=== PATIENT | female | born 1960 | race Caucasian/White ===

== ENCOUNTER 2022-02-27 14:12 | Emergency (ER) | payer MEDICARE, OTHER, SELFPAY ==
[2022-02-27 14:18] VITALS: BP 134/78; PULSE 111; RESP 18; TEMP 36.7; O2SAT 90; BMI 19.5
--- NOTE | 2022-02-27 14:30 | PC.NURSE ---
Patient wears 2 L o2 at all times but left tank in car. This RN placed pt on 2 L NC.
--- NOTE | 2022-02-27 14:39 | W.ED.BACK ---
HPI - Back Pain/Injury General: Chief Complaint: Back Pain/Injury Stated Complaint: Lower Back Pain Time Seen by Provider: 02/27/22 14:39 Source: patient Mode of arrival: ambulatory History of Present Illness: 62-year-old female presents emergency room complaining of low back pain is persisted over the last few days. Started 2 days ago when she was sitting on the floor and leaned forward to change a baby's diaper. She had a sudden popping and spasm sensation in her back is continue to be very painful since. No radiation of pain down the legs no loss of bowel or bladder control no urinary retention. No shortness of breath no dysuria urgency or frequency. MD elicited complaint: back pain Pertinent past history: prior back pain Onset (ago): day(s) Timing: constant Similar Symptoms Previously: Yes Quality: aching Location: lumbar spine and thoracic spine Associated symptoms: Deny abdominal pain, chills, dysuria, fatigue, fever(s), nausea, urinary urgency or vomiting Review of Systems Const: Denies: fever(s), chills, body aches, change in appetite, fatigue or malaise ENMT: Denies: throat pain, ear or mastoid pain, nasal discharge or nasal congestion Card: Denies: chest pain, edema, dyspnea on exertion or orthopnea Resp: Denies: dyspnea, productive cough or non-productive cough GI: Denies: abdominal pain, nausea, vomiting, hematemesis, coffee ground emesis, diarrhea, constipation, bloating, hematochezia or melena : Denies: flank pain, difficulty voiding, dysuria, urinary frequency or urinary urgency Musc: Reports: back pain Skin/Breast: Denies: rash or pruritus PFS ED PFSH: Medical History (Updated 02/28/22 @ 06:20 by Brijesh Zimmer DO) COPD (chronic obstructive pulmonary disease) Osteoporosis Social History (Updated 02/28/22 @ 06:20 by Brijesh Zimmer DO) Smoking and tobacco status: current every day smoker Alcohol intake: never Physical Exam Const: COMMON NORMALS: no acute distress GENERAL APPEARANCE: cooperative and comfortable ORIENTATION/CONSCIOUSNESS: Yes awake, Yes oriented to person, Yes oriented to place and Yes oriented to time HENMT: COMMON NORMALS: normocephalic, atraumatic and hearing grossly normal bilaterally HEAD & SCALP: normocephalic and atraumatic Neck/C-Spine: OTHER: Tenderness over the upper lumbar spine with palpation no skin deformity or rash Lymph: LYMPHATIC: no lymphadenopathy noted and no lymphedema noted Resp: COMMON NORMALS: normal respiratory effort, No retractions, No use of accessory muscles and clear to auscultation bilaterally AUSCULTATION: clear to auscultation bilaterally Cardio: COMMON NORMALS: regular rate, regular rhythm and No murmurs present (Cardio) RATE: regular rate RHYTHM: regular rhythm GI: COMMON NORMALS: Soft to palpation and No hepatosplenomegaly present AUSCULTATION: Yes normoactive bowel sounds PALPATION: Yes Soft to palpation, No Tenderness to palpation present (GI), No Guarding due to palpation present (GI) and Yes No hepatosplenomegaly present Extremity: COMMON NORMALS: normal to inspection, capillary refill normal, no clubbing, cyanosis or edema, no calf tenderness and no pedal edema Neuro: SENSORIUM/ORIENTATION: Yes oriented to person, Yes oriented to place and Yes oriented to time Skin: COMMON NORMALS: no rashes or lesions noted GENERAL SKIN EXAM: no rashes or lesions noted Course Vital Signs: Vital signs: Vital Signs Temperature 98.1 F 02/27/22 15:20 Pulse Rate 111 H 02/27/22 15:20 Respiratory Rate 18 02/27/22 15:20 Blood Pressure 134/78 02/27/22 15:20 Pulse Oximetry 90 02/27/22 15:20 Oxygen Delivery Me thod 02/27/22 15:20 MDM - Back Pain/Injury Medical Decision Making Lumbar compression fracture we will set up for an MRI follow-up with orthopedic spine surgery to evaluate for possible kyphoplasty. Medical Records I reviewed the patient's medical records. Labs I reviewed the patient's lab results. : 02/27/22 14:36 02/27/22 14:36 Radiology Impressions Lumbar Spine X-Ray 02/27/22 14:51 Impression: 1. Diffuse osteoporosis. 2. Loss of 25% of anterior and central vertebral body height of L1. 3. Anterior osteophytes at L4 and L5 with degenerative disc narrowing. Laboratory Results WBC 9.0 10^3/uL (4.0-10.0) 02/27/22 14:36 RBC 4.91 10^6/uL (4.1-5.3) 02/27/22 14:36 Hgb 15.2 g/dL (11.5-15.3) 02/27/22 14:36 Hct 46.3 % (37.0-47.0) 02/27/22 14:36 MCV 94.3 fl (81-99) 02/27/22 14:36 MCH 31.0 pg (28.0-34.0) 02/27/22 14:36 MCHC 32.8 g/dL (30.0-36.0) 02/27/22 14:36 RDW 12.2 % (12.1-15.1) 02/27/22 14:36 Plt Count 419 10^3/cmm (130-400) H 02/27/22 14:36 MPV 8.7 fL (7.4-10.4) 02/27/22 14:36 Neut % (Auto) 69.4 % 02/27/22 14:36 Lymph % (Auto) 21.4 % 02/27/22 14:36 Roberts % (Auto) 7.4 % 02/27/22 14:36 Eos % (Auto) 1.3 % 02/27/22 14:36 Baso % (Auto) 0.2 % 02/27/22 14:36 Neut # (Auto) 6.21 10^3/uL (1.8-7.7) 02/27/22 14:36 Lymph # (Auto) 1.9 10^3/uL (0.8-4.8) 02/27/22 14:36 Roberts # (Auto) 0.7 10^3/uL (0.2-0.9) 02/27/22 14:36 Eos # (Auto) 0.1 10^3/uL (0.0-0.8) 02/27/22 14:36 Baso # (Auto) 0.0 10^3/uL (0.0-0.1) 02/27/22 14:36 Nucleated RBC % (auto) 0 % 02/27/22 14:36 Nucleated RBCs # 0.0 /100WBC 02/27/22 14:36 Sodium 139 mmol/L (136-145) 02/27/22 14:36 Potassium 4.5 mmol/L (3.5-5.1) 02/27/22 14:36 Chloride 98 mmol/L (98-107) 02/27/22 14:36 Carbon Dioxide 31 mmol/L (22-29) H 02/27/22 14:36 Anion Gap 14.5 (5-19) 02/27/22 14:36 BUN 7 mg/dL (8-23) L 02/27/22 14:36 Creatinine 0.5 mg/dL (0.5-0.9) 02/27/22 14:36 GFR Calculation 124.2 mL/min (90-130) 02/27/22 14:36 Glucose 130 mg/dL (65-115) H 02/27/22 14:36 Calculated Osmolality 288 mOsm/kg (285-295) 02/27/22 14:36 Calcium 9.7 mg/dL (8.5-10.5) 02/27/22 14:36 Total Bilirubin 0.5 mg/dL (0.15-1.2) 02/27/22 14:36 AST 11 U/L (0-32) 02/27/22 14:36 ALT 10 U/L (0-33) 02/27/22 14:36 Alkaline Phosphatase 127 U/L (35-105) H 02/27/22 14:36 Total Protein 7.5 g/dL (6.6-8.7) 02/27/22 14:36 Albumin 4.2 g/dL (3.5-5.2) 02/27/22 14:36 Globulin 3.3 g/dL (1.3-4.6) 02/27/22 14:36 Lipase 21 U/L (13-60) 02/27/22 14:36 Discharge Plan Discharge Clinical Impression: Closed compression fracture of lumbar vertebra Prescriptions: New hydrocodone-acetaminophen 5-325 mg tablet 1 tab PO Q6H PRN (Reason: pain) Qty: 20 0RF Discharge Orders: Discharge ED (Routine); Ordered 02/27/22 Ordered By: Brijesh Zimmer Discharge Diet: Usual diet Discharge Activity: Increase activity as tolerated Patient Instructions: Opioid Safety Activity Restrictions/Additional Instructions: Case management will make arrangements for you to have an MRI of your lumbar spine and follow-up with the orthopedic surgeon. They will also call to help you make arrangements to establish with a primary care physician. 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
[2022-02-27 14:41] LABS: Basophils % 0.2 %; Eosinophils # 0.1 10^3/uL (0.0-0.8); Eosinophils % 1.3 %; Hematocrit 46.3 % (37.0-47.0); Hemoglobin 15.2 g/dL (11.5-15.3); Lymphocytes # 1.9 10^3/uL (0.8-4.8); Lymphocytes % 21.4 %; Mean Corpuscular HGB Conc 32.8 g/dL (30.0-36.0); Mean Corpuscular Volume 94.3 fl (81-99); Mean Platelet Volume 8.7 fL (7.4-10.4); Monocytes # 0.7 10^3/uL (0.2-0.9); Monocytes % 7.4 %; Neutrophils # 6.21 10^3/uL (1.8-7.7); Neutrophils % 69.4 %; Nucleated Red Blood Cells % 0 %; Platelet Count 419 10^3/cmm (130-400); Red Blood Count 4.91 10^6/uL (4.1-5.3); Red Cell Distribution Width 12.2 % (12.1-15.1)
--- NOTE | 2022-02-27 14:51 | XR_ITS ---
WS: [id number] Lumbar spine, 3 views, 02/27/2022 Clinical Data: pain Comparison: None. Findings: There is diffuse osteoporosis. There is loss of 25% of the anterior and central vertebral body height of L1 which may represent a compression fracture. There is degenerative disc narrowing at L4-L5. Ant erior osteophytes are present at L4 and L5. The transverse processes and SI joints are unremarkable. There are calcifications overlying the left kidney. There is a moderate amount of fecal material throughout the colon. There are vascular calcifi cations in the abdominal aorta. There are surgical anchors overlying the pubic symphysis. XR/XR lumbar spine 2-3V* [id number] Impression: 1. Diffuse osteoporosis. 2. Loss of 25% of anterior and central vertebral body height of L1. 3. Anterior osteophytes at L4 and L5 with degenerative disc narrowing.
[2022-02-27 15:10] LABS: Alanine Aminotransferase 10 U/L (0-33); Albumin Level 4.2 g/dL (3.5-5.2); Alkaline Phosphatase 127 U/L (35-105); Anion Gap 14.5 (5-19); Aspartate Amino Transferase 11 U/L (0-32); Blood Urea Nitrogen 7 mg/dL (8-23); Calcium 9.7 mg/dL (8.5-10.5); Carbon Dioxide 31 mmol/L (22-29); Chloride 98 mmol/L (98-107); Globulin 3.3 g/dL (1.3-4.6); Glomerular Filtration Rate 124.2 mL/min (90-130); Glucose 130 mg/dL (65-115); Lipase 21 U/L (13-60); Osmolality Calculated 288 mOsm/kg (285-295); Potassium 4.5 mmol/L (3.5-5.1); Sodium 139 mmol/L (136-145); Total Bilirubin 0.5 mg/dL (0.15-1.2); Total Protein 7.5 g/dL (6.6-8.7)
[2022-02-27 15:20] VITALS: BP 134/78; PULSE 111; RESP 18; TEMP 36.7; O2SAT 90
[2022-02-27] MEDS: ondansetron 2 mg/ML SDV 2 mL 4 MG IM (15:50)
[2022-02-27] MEDS: morphine 4 mg/mL SDV 1 mL IM (15:50)
--- NOTE | 2022-02-28 09:08 | DCPLANNER ---
Addendum entered by Ele Castro 03/13/22 13:47: Patient did attend appointment scheduled with ortho on 03.05.22 Patient had an MRI scheduled for 03.05.22 - patient did attend MRI Addendum entered by Ele Castro 03/01/22 14:05: Patient has a follow up appointment scheduled for Saturday, March 05, 2022 at 2:45 with Farooq Dooley at [facility]. Clinic will call patient with appointment information. Original Note: manager environmental services had message to schedule an outpatient MRI for patient. manager environmental services faxed signed order to centralized scheduling, who will call patient with appointment information. manager environmental services also had message to schedule a follow up appointment for patient with ortho. manager environmental services sent patients information to the front office staff at [facility]. Patients information will be printed and reviewed. Clinic will call patient with appointment information.
--- NOTE | 2022-02-28 09:28 | DCPLANNER ---
rental manager had message to speak with patient about getting established with a primary care physician. rental manager called phone number [phone] unable to speak with patient a voicemail was left for patient to return immigration case manager phone call.
== END 2022-02-27 15:55 | disposition home or self-care (01) ==
PROVIDERS: Emergency Medicine; Emergency Provider Family Medicine
DX: S32.010A Wedge compression fracture of first lumbar vertebra, initial encounter for closed fracture (principal); X50.1XXA Overexertion from prolonged static or awkward postures, initial encounter; J44.9 Chronic obstructive pulmonary disease, unspecified; F17.210 Nicotine dependence, cigarettes, uncomplicated
CPT/HCPCS: 36415; 72100; 80053; 83690; 85025; 96372; 99285; J2270; J2405

== ENCOUNTER 2022-03-05 15:46 | Outpatient (CLI) | payer MEDICARE, OTHER, SELFPAY | END 2022-03-05 15:47 | disposition home or self-care (01) | LOC: SPT 15:47 | PROVIDERS: Visit Provider Physician Assistant | DX: Z46.89 Encounter for fitting and adjustment of other specified devices (principal); S32.010D Wedge compression fracture of first lumbar vertebra, subsequent encounter for fracture with routine healing; X58.XXXD Exposure to other specified factors, subsequent encounter | CPT/HCPCS: 97760; 99203; L0456 ==

== ENCOUNTER 2022-03-05 17:24 | Outpatient (CLI) | payer MEDICARE, OTHER, SELFPAY ==
--- NOTE | 2022-03-05 16:45 | MRR_ITS ---
PROCEDURE INFORMATION: Exam: MR Thoracic Spine Without Contrast Exam date and time: 03/05/2022 5:39 PM Age: 62 years old Clinical indication: Pain in thoracic spine; Additional info: Fracture TECHNIQUE: Imaging protocol: Magnetic resonance imaging of the thoracic spine without contrast. COMPARISON: CR XR lumbar spine 2-3V* [id number] 02/27/2022 3:01 PM FINDINGS: Bones/joints: There is bone marrow edema throughout the L1 vertebral body. There is a mild compression fracture of the superior endplate. There is 4 mm posterior cortical retropulsion of the superior endplate. There is mild broad-based upper thoracic kyphosis. There are severe biconcave compression fractures without bone marrow edema at T7, T6, T5, T4, and T3. Spinal cord: The spinal cord is not well visualized. No gross abnormality is identified. No cord compression. Discs/Spinal canal/Neural foramina: No significant thoracic spinal canal stenosis. Mild spinal stenosis at L1. No cord compression. Soft tissues: Paraspinal soft tissues are unremarkable. Mediastinal space: There is a small sliding-type hiatal hernia. MR/MR thoracic spin wo con* [id number] IMPRESSION: 1. Acute or subacute mild L1 superior endplate compression fracture. 2. Mild spinal stenosis at L1 due to posterior cortical retropulsion. 3. Chronic T3 through T7 compression fractures. 4. Small sliding-type hiatal hernia.
== END 2022-03-05 17:25 | disposition home or self-care (01) ==
PROVIDERS: Visit Provider Physician Assistant
DX: S32.019A Unspecified fracture of first lumbar vertebra, initial encounter for closed fracture (principal); M48.061 Spinal stenosis, lumbar region without neurogenic claudication; S22.039A Unspecified fracture of third thoracic vertebra, initial encounter for closed fracture; S22.049A Unspecified fracture of fourth thoracic vertebra, initial encounter for closed fracture; S22.059A Unspecified fracture of T5-T6 vertebra, initial encounter for closed fracture; S22.069A Unspecified fracture of T7-T8 vertebra, initial encounter for closed fracture; X58.XXXA Exposure to other specified factors, initial encounter; K44.9 Diaphragmatic hernia without obstruction or gangrene
CPT/HCPCS: 72146; 72148

== ENCOUNTER 2022-03-05 17:24 | Outpatient (CLI) | payer MEDICARE, OTHER, SELFPAY ==
--- NOTE | 2022-03-05 16:45 | MRR_ITS ---
PROCEDURE INFORMATION: Exam: MR Lumbar Spine Without Contrast Exam date and time: 03/05/2022 5:54 PM Age: 62 years old Clinical indication: Low back pain; Additional info: Fracture TECHNIQUE: Imaging protocol: Magnetic resonance imaging of the lumbar spine without contrast. COMPARISON: CR XR lumbar spine 2-3V* [id number] 02/27/2022 3:01 PM FINDINGS: Bones/joints: Spinal alignment is normal. Mild superior endplate compression fracture at L1 with bone marrow edema throughout the L1 vertebral body. Trace posterior cortical retropulsion (4 mm) of the superior endplate. Spinal cord: The tip of the conus medullaris lies at L1. T12-L1: Mild spinal stenosis due to L1 superior endplate retropulsion. L1-L2: Normal. L2-L3: Normal. L3-L4: Disc desiccation and narrowing. Mild generalized disc bulge. No focal disc herniation. Mild bilateral facet and ligamentous hypertrophy. No spinal canal or neural foraminal stenosis. L4-L5: Disc desiccation and narrowing. Moderate generalized disc bulge. No focal disc herniation. Moderate bilateral facet and ligamentous hypertrophy. Mild spinal canal stenosis. Mild bilateral neural foraminal stenosis. L5-S1: Disc desiccation and narrowing. Mild generalized disc bulge. No focal disc herniation. Mild bilateral facet and ligamentous hypertrophy. No spinal canal stenosis. Mild right neural foraminal stenosis. Soft tissues: Paraspinal soft tissues are unremarkable. Visible intra-abdominal soft tissues are unremarkable. MR/MR lumbar spine wo con* [id number] IMPRESSION: 1. Acute or subacute mild L1 superior endplate compression fracture. 2. Posterior cortical retropulsion at the superior endplate of L1 produces mild spinal stenosis. 3. Mild spinal canal and neural foraminal stenosis in the lower lumbar spine due to disc and facet degeneration. Details above.
== END 2022-03-05 17:25 | disposition home or self-care (01) ==
LOC: RAD 17:24
PROVIDERS: Visit Provider Physician Assistant
DX: S32.019A Unspecified fracture of first lumbar vertebra, initial encounter for closed fracture (principal); M48.061 Spinal stenosis, lumbar region without neurogenic claudication; X58.XXXA Exposure to other specified factors, initial encounter
CPT/HCPCS: 72148

== ENCOUNTER → 2022-03-07 12:42 | Outpatient (BNVA) | payer MEDICARE, OTHER, SELFPAY | PROVIDERS: Visit Provider Physician Assistant | DX: S32.010D Wedge compression fracture of first lumbar vertebra, subsequent encounter for fracture with routine healing (principal); X58.XXXD Exposure to other specified factors, subsequent encounter; M81.0 Age-related osteoporosis without current pathological fracture | CPT/HCPCS: 99213 ==

== ENCOUNTER 2022-03-15 06:41 | Day surgery (SDC) | payer MEDICARE, OTHER, SELFPAY ==
--- NOTE | 2022-03-13 10:21 | ANES.PREANE2 ---
Pre-Anesthetic Assessment Height/Weight: Height 1.6 m Weight 49.895 kg Operation Date: 03/15/22 08:20 Proposed Procedures p Kyphoplasty L1 59425/S32.010A(Not Applicable) - Cornell Balbuena, Familial anesthetic complications: None Social No alcohol and No tobacco quit smoking a week ago Exam alert, oriented x 3, clear to auscultation bilaterally and regular rate & rhythm coarse breath sounds Airway Mallampati: Class II Dentition: other (missing) Pulmonary Chronic Obstructive Pulmonary Disease (2 L NC, supposed to wear it continuously, but has been off it for a week d/t inaccessability) and Sleep Apnea CV/HEM Atrial Fibrillation, Coronary Artery Disease (CABG X4 in 2005, and 4 stents since then (all greater than 1year ago, will hold plavix for surgery)) and Hypertension None reported Hepatic None reported GI None reported Metabolic None reported Musc/skel Lower Back Pain osteoprosis Neuropsych None reported Anesthetic Plan ASA status: 4 Anesthesia: General Risk of > 500 ml blood loss (7ml/kg in children): No Medications/Allergies Home Medications Medication Instructions Recorded Confirmed Last Taken Type TLSO BRACE #1 ea 03/05/22 03/07/22 Unknown Rx albuterol 90 mcg/actuation aerosol 90 mcg inhalation DAILY 03/05/22 03/13/22 Unknown History inhaler alendronate 70 mg tablet (Fosamax) 70 mg PO DAILY 03/05/22 03/07/22 Unknown History aspirin 81 mg tablet,delayed 81 mg PO DAILY 03/05/22 03/13/22 03/11/22 History release (Adult Aspirin Regimen) calcium carbonate 600 mg calcium 600 mg PO DAILY 03/05/22 03/13/22 Unknown History (1,500 mg) tablet (Calcium) citalopram 20 mg tablet (Celexa) 20 mg PO DAILY 03/05/22 03/13/22 Unknown History clopidogrel 75 mg tablet (Plavix) 75 mg PO DAILY 03/05/22 03/13/22 03/10/22 History gabapentin 400 mg capsule 400 mg PO TID 03/05/22 03/13/22 Unknown History (Neurontin) hydralazine 10 mg tablet 10 mg PO DAILY 03/05/22 03/13/22 Unknown History lisinopril 5 mg tablet 5 mg PO DAILY 03/05/22 03/13/22 Unknown History metoprolol tartrate 50 mg tablet 50 mg PO BID 03/05/22 03/13/22 Unknown History (Lopressor) ranolazine 500 mg tablet,extended 500 mg PO BID 03/05/22 03/13/22 Unknown History release,12 hr (Ranexa) hydrocodone 5 mg-acetaminophen 325 1 tab PO .q4-6 PRN pain 5 days #30 03/07/22 03/13/22 Unknown Rx mg tablet tabs ondansetron 4 mg disintegrating 4 mg PO Q6H PRN nausea and 03/07/22 03/13/22 Unknown Rx tablet vomiting #30 tabs fluticasone fur. 100 mcg-umeclid 1 inh inhalation DAILY 03/13/22 03/13/22 Unknown History 62.5 mcg-vilant 25 mcg inhalat.powder (Trelegy Ellipta) Allergies Allergy/AdvReac Type Severity Reaction Status Date / Time flagyl Allergy Mild ADR-Itching Uncoded 03/07/22 12:45 [facility] Anesthesia Medical History COPD (chronic obstructive pulmonary disease) Osteoporosis Social History Smoking and tobacco status: current every day smoker Second hand smoke exposure: Yes Smoking risk assessment/counseling performed?: No Alcohol intake: never Desire information about alcohol rehabilitation?: No Counseling given: No Desire information about substance/drug rehabilitation?: No Adopted: No Caregiver/support person: Yes Lives independently: No Household members: spouse Housing: House Marital status: Number of children: 4 Number of grandchildren: 12 Highest education level completed: 10th Grade service: No Current occupational status: retired and disabled Current occupational exposures/hazards: No Pets and animals: No Sexually active: Yes Current gender identity: Female Special annika needs: No Agree to transfusion: Yes Data Anesthesia Cardiac Studies: No Data to Display
--- NOTE | 2022-03-13 10:47 | ECG_ITS ---
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 Measurements Intervals [place] Rate: 82 P: -9 FL: 138 QRS: 64 QRSD: 85 T: 15 QT: 379 QTc: 444 Interpretive Statements SINUS RHYTHM No previous ECG available for comparison Electronically Signed On 03-13-2022 16:29:35 CDT by Claritza Box M.D. [id number]
[2022-03-15] VITALS (8 sets, daily range): BP systolic 94–130; BP diastolic 67–73; PULSE 72–76; RESP 15–18; TEMP 36.1–36.2; O2SAT 93–100
--- NOTE | 2022-03-15 | SCC_ITS ---
Procedure done: 1. L1 kyphoplasty 2. Biopsy L1 vertebral body 73.7 seconds of fluoroscopic guidance, for a cumulative dose of 15.71 mGy and 12.53 mGy, was provided to Dr. Balbuena by the radiology department. C-arm images of the lumbar spine were saved for the patient's permanent record. [facility]
--- NOTE | 2022-03-15 06:44 | SC_ITS ---
WS: [id number] Exam: C-arm FL for Kyphoplasty Date/Time of Exam: 03/15/2022 6:44 AM Reason For Exam: Kyphoplasty L1 Intraoperative AP and lateral views of the upper lumbar spine are submitted for evaluation. The images depict kyphoplasty with methacrylate cement in the L1 vertebral body. No other significant finding on this limited series.
--- NOTE | 2022-03-15 07:12 | P.ANESUD_ITS ---
Pre-Anesthetic Update Pre-Anesthetic Assessment: Date of Surgery/Procedure: 03/15/22 Preop Lily gnosis: L1 compression fracture Proposed Procedure: Operation Date: 03/15/22 08:20 Proposed Procedures p Kyphoplasty L1 14054/S32.010A(Not Applicable) - Cornell Balbuena, DO Any changes to Pre-Anesthetic Assessment?: No Last Intake: Intake Last Liquid Date 03/14/22 Last Liquid Time 20:30 Last Solid Date 03/14/22 Last Solid Time 20:30 Exam: Pre-Anes Outpt Exam: alert, oriented x 3, clear to auscultation bilaterally and regular rate & rhythm Cardiac Studies: No Data to Display
[2022-03-15] MEDS: sodium chloride 0.9% 1,000 ML 30 ML IV (07:14)
[2022-03-15 07:19] LABS: Glucose Point of Care 135 mg/dL (70-110)
[2022-03-15] MEDS: metoprolol tartrate 50 mg Tablet PO (07:21)
--- NOTE | 2022-03-15 08:18 | W.PM.OPSUD ---
Surgery/Procedure H&P Update DATE OF PROCEDURE: March 15, 2022 DATE H&P PERFORMED: 03/07/22 H&P UPDATE INFORMATION: I have reviewed H&P completed within last 30 days, I have examined patient prior to procedure and No changes to prior documentation PREOP DIAGNOSIS: L1 compression fracture PLANNED PROCEDURE: Operation Date: 03/15/22 08:20 Proposed Procedures p Kyphoplasty L1 16744/S32.010A(Not Applicable) - Cornell Balbuena DO
[2022-03-15] MEDS: clindamycin 900 MG/50 ML PREMIX 100 MG IV (08:48)
[2022-03-15] MEDS: iohexol 300 mg/mL 50 mL Btl (OR ONLY) XX (09:25)
--- NOTE | 2022-03-15 10:04 | PM.OP ---
Operative Report Date of procedure: March 15, 2022 Pre-op diagnosis: Preop Diagnosis L1 traumatic wedge compression fracture Post-op diagnosis: same Procedure done: 1. L1 kyphoplasty 2. Biopsy L1 vertebral body Surgeon: Cornell Balbuena Estimated blood loss (mL): 5 Procedure: L1 Kyphoplasty Patient is brought to the operative suite placed in the prone position after undergoing anesthesia. All areas impingement well-padded. Patient was prepped and draped in sterile fashion. Skin incision made over the superior lateral aspect of the L1 pedicle on the left side. This was done under biplanar fluoroscopy. The Jamshidi awl was inserted. Then a biopsy tube was inserted biopsy was taken out and sent to pathology. Next attention was brought to the drill the drill was inserted and the balloon was inserted and the balloon was inflated. Is felt that I needed to go to the contralateral side as well. Skin incision made over the right pedicle. The Jamshidi was inserted the drill was inserted the balloon was inserted and inflated. AP lateral fluoroscopy ensured the balloons were inflated did not reach any damico. Wounds were pulled out. And then the voids that were created were filled with cement AP and lateral fluoroscopy ensured that the cement stayed in good position. Inside of the bone. And wounds were irrigated and closed with Vicryl's and nylon suture. Sterile dressings were applied and patient was transferred to the PACU in stable condition.
[2022-03-15] MEDS: HYDROcodone-acetaminophen 5-325 mg Tablet 1 TAB PO (10:40)
--- NOTE | 2022-03-15 12:00 | ANE.PACU2 ---
Inpatient post-anesthesia follow up: Airway intact: Yes Vital signs: Temperature 97.2 F Pulse Rate 76 Respiratory Rate 16 Blood Pressure 118/73 Pulse Oximetry 93 Oxygen Delivery Me thod Room Air Oxygen Flow Rate 2 Fraction of Inspir ed Oxygen Hydration adequate: Yes Nausea and vomiting: No Pain level: 2 Mental status: Baseline
== END 2022-03-15 11:00 | disposition home or self-care (01) ==
PROVIDERS: Visit Provider Orthopaedic Surgery
PROC: (CPT 22514; principal; 2022-03-15 08:10)
DX: S32.010A Wedge compression fracture of first lumbar vertebra, initial encounter for closed fracture (principal); I10 Essential (primary) hypertension; J44.9 Chronic obstructive pulmonary disease, unspecified; G47.30 Sleep apnea, unspecified; I48.91 Unspecified atrial fibrillation; I25.10 Atherosclerotic heart disease of native coronary artery without angina pectoris; Z79.82 Long term (current) use of aspirin; Z79.02 Long term (current) use of antithrombotics/antiplatelets; Z79.51 Long term (current) use of inhaled steroids; Z87.891 Personal history of nicotine dependence; Z77.22 Contact with and (suspected) exposure to environmental tobacco smoke (acute) (chronic); Z88.1 Allergy status to other antibiotic agents; Z95.5 Presence of coronary angioplasty implant and graft; Z95.1 Presence of aortocoronary bypass graft
CPT/HCPCS: 22514; 36416; 76000; 82962; 88307; 88311; 93005; J1100; J2270; J2405; J2704; J3010; J3490; J7030

== ENCOUNTER → 2022-03-28 10:48 | Outpatient (BNVA) | payer MEDICARE, OTHER, SELFPAY | PROVIDERS: Visit Provider Orthopaedic Surgery | DX: S32.010D Wedge compression fracture of first lumbar vertebra, subsequent encounter for fracture with routine healing (principal); X58.XXXD Exposure to other specified factors, subsequent encounter | CPT/HCPCS: 99024; 99212 ==

== ENCOUNTER → 2022-04-25 11:34 | Outpatient (BNVA) | payer MEDICARE, OTHER, SELFPAY | PROVIDERS: PCP Family Medicine; Visit Provider Internal Medicine Pulmonary Disease | DX: R91.1 Solitary pulmonary nodule (principal); J96.11 Chronic respiratory failure with hypoxia; Z99.81 Dependence on supplemental oxygen; Z95.5 Presence of coronary angioplasty implant and graft; I25.10 Atherosclerotic heart disease of native coronary artery without angina pectoris; Z95.1 Presence of aortocoronary bypass graft; Z87.891 Personal history of nicotine dependence | CPT/HCPCS: 99204 ==

== ENCOUNTER 2022-04-29 10:19 | Outpatient (CLI) | payer MEDICARE, OTHER, SELFPAY ==
--- NOTE | 2022-04-29 10:15 | CT_ITS ---
WS: [id number] CT CHEST TECHNIQUE: Noncontrast CT of the chest with coronal and sagittal reformatted images. CLINICAL INFORMATION: f/u lung nodule COMPARISON: None. DLP: 463.[address] scans at [facility] use at least one of these dose optimization techniques: automated e xposure control; mA and/or kV adjustment per patient size (includes targeted exams where dose is matc hed to clinical indication); or iterative reconstruction. FINDINGS: Advanced chronic emphysematous changes. No acute pulmonary infiltrates. Calcified granuloma RIGHT low er lobe. Additional smaller calcified granulomas. Prominent lymph nodes RIGHT hilum largest measuring 12 mm. Some this may be vascular. Aortic calcification. Coronary calcification. No mediastinal or hilar lymphadenopathy. No axillary ly mphadenopathy. Adrenal glands are normal. Splenic granulomas. Normal GE junction. Sternotomy with CABG. Mild thoraci c kyphosis in the upper thoracic spine. Kyphoplasty changes T4, T5, and T7 and L1. Chronic compressio n at T6. CT/CT chest wo con [id number] IMPRESSION: 1. No suspicious pulmonary parenchymal abnormalities. 2. Calcified granulomas the largest in the RIGHT lower lobe measuring 10 mm. 3. Advanced chronic emphysematous changes. 4. Prominent lymph nodes RIGHT hilum some of which may be vascular. This can b e followed up with contrast-enhanced chest CT. 5. Aortic calcification. Coronary calcification. 6. CABG with sternotomy. 7. Prior kyphoplasty changes described above.
== END 2022-04-29 10:20 | disposition home or self-care (01) ==
LOC: RAD 10:20
PROVIDERS: PCP Family Medicine; Visit Provider Internal Medicine Pulmonary Disease
DX: R91.1 Solitary pulmonary nodule (principal); J84.10 Pulmonary fibrosis, unspecified; I70.0 Atherosclerosis of aorta; I25.10 Atherosclerotic heart disease of native coronary artery without angina pectoris; Z95.1 Presence of aortocoronary bypass graft
CPT/HCPCS: 71250

== ENCOUNTER → 2022-05-09 11:33 | Outpatient (BNVA) | payer MEDICARE, OTHER, SELFPAY | PROVIDERS: PCP Family Medicine; Visit Provider Internal Medicine Pulmonary Disease | DX: J44.9 Chronic obstructive pulmonary disease, unspecified (principal); J96.11 Chronic respiratory failure with hypoxia; Z99.81 Dependence on supplemental oxygen; Z95.5 Presence of coronary angioplasty implant and graft; I25.10 Atherosclerotic heart disease of native coronary artery without angina pectoris; Z95.1 Presence of aortocoronary bypass graft; R91.8 Other nonspecific abnormal finding of lung field; J96.12 Chronic respiratory failure with hypercapnia | CPT/HCPCS: 99214 ==

== ENCOUNTER → 2022-06-26 07:56 | Outpatient (BNVA) | payer MEDICARE, OTHER, SELFPAY | PROVIDERS: PCP Family Medicine; Referring Provider Physician Assistant; Visit Provider Internal Medicine | DX: M81.0 Age-related osteoporosis without current pathological fracture (principal); N89.8 Other specified noninflammatory disorders of vagina | CPT/HCPCS: 99204 ==

== ENCOUNTER 2022-08-01 13:42 | Outpatient (CLI) | payer MEDICARE, OTHER, SELFPAY ==
--- NOTE | 2022-08-01 14:30 | XR_ITS ---
WS: [id number] DEXA (DUAL ENERGY X-RAY ABSORPTIOMETRY) Bone mineral density was performed using a [employer] machine. HISTORY: osteoporosis COMPARISON: None available. Lumbar spine BMD (L2-L4): 0.646 T score: -4.6 Z score: -2.5 Total hip BMD: Left: 0.429 g/cm2. T score: -4.6 Z score: -3.0 Right: 0.377 g/cm2. T score: -5.0 Z score: -3.5 10 year probability of a major osteoporotic fracture is Vertebroplasty at L1. XR/XR DEXA axial skeleton* [id number] IMPRESSION: SEVERE OSTEOPOROSIS based upon the WHO classification for females.
== END 2022-08-01 13:43 | disposition home or self-care (01) ==
LOC: RAD 13:44
PROVIDERS: PCP Family Medicine; Visit Provider Internal Medicine
DX: M81.0 Age-related osteoporosis without current pathological fracture (principal)
CPT/HCPCS: 77080

== ENCOUNTER → 2022-11-14 07:57 | Outpatient (BNVA) | payer MEDICARE, OTHER, SELFPAY | PROVIDERS: PCP Family Medicine; Visit Provider Internal Medicine | DX: M81.0 Age-related osteoporosis without current pathological fracture (principal); F33.41 Major depressive disorder, recurrent, in partial remission; E55.9 Vitamin D deficiency, unspecified | CPT/HCPCS: 80053; 82306; 82310; 83970; 84439; 84443; 99214 ==

== ENCOUNTER → 2023-01-15 12:32 | Outpatient (BNVA) | payer MEDICARE, OTHER, SELFPAY | PROVIDERS: PCP Family Medicine; Visit Provider Internal Medicine | DX: M81.0 Age-related osteoporosis without current pathological fracture (principal); E55.9 Vitamin D deficiency, unspecified | CPT/HCPCS: 82306; 99214 ==

== ENCOUNTER → 2023-01-20 11:07 | Outpatient (BNVA) | payer MEDICARE, OTHER, SELFPAY | PROVIDERS: PCP Family Medicine; Visit Provider Internal Medicine Pulmonary Disease | DX: J43.1 Panlobular emphysema (principal); Z87.891 Personal history of nicotine dependence; J96.11 Chronic respiratory failure with hypoxia; Z99.81 Dependence on supplemental oxygen; R91.1 Solitary pulmonary nodule; Z95.1 Presence of aortocoronary bypass graft; G47.33 Obstructive sleep apnea (adult) (pediatric); Z95.5 Presence of coronary angioplasty implant and graft | CPT/HCPCS: 99214 ==

== ENCOUNTER 2023-01-29 13:25 | Outpatient (CLI) | payer MEDICARE, OTHER, SELFPAY ==
--- NOTE | 2023-01-29 13:15 | CT_ITS ---
WS: [id number] LDCT LUNG CANCER SCREENING HISTORY: Cancer Screen TECHNIQUE: Axial imaging performed from the apices to 1 cm below the costophrenic angles. Coronal and sagittal reformats are submitted with axial MIP series. All CT scans at [facility] use at least one of these dose optimization techniques: automated exposure control; mA and/or kV adjustment per patient size (includes targeted exams where dose is matched to clinical indication); or iterativ e reconstruction. DLP: 38.69 mGy.cm DIvol: Mean CTDIvol: 0.60 (mGy) COMPARISON: Prior CT 04/29/2022 Diagnostic quality: Satisfactory. Lungs: Advanced emphysematous changes. Lungs are hyperinflated with centrilobular emphysema. Hazy samanta undglass attenuation scattered throughout the lungs. Bilateral granulomata. No mass or nodule. No foc al groundglass attenuation and no endobronchial lesions. Heart: Normal size heart with no pericardial effusion.. Status post CABG. Extensive [place] coronary a rtery calcification. Other findings: Mild atherosclerosis aorta. Mildly enlarged pulmonary artery. RIGHT hilum continues t o be enlarged which may be related to the pulmonary vasculature. Similar to the prior study. Cannot e xclude lymph nodes. Large hiatal hernia. No adrenal mass. Visualized liver is negative. Splenic granu lomata. Numerous prior vertebral kyphoplasty' s including T4, T5, T7 and L1. Chronic compression frac ture at T6. Mild anterior wedging and compression fracture of T3. CT/CT lung screening [id number] IMPRESSION: LUNG-RADS: 1-Negative FOLLOW UP: 12 Month: Continue annual screening with LDCT OTHER FINDINGS (S MODIFIER): None.
== END 2023-01-29 13:26 | disposition home or self-care (01) ==
LOC: RAD 13:26
PROVIDERS: PCP Family Medicine; Visit Provider Internal Medicine Pulmonary Disease
DX: Z12.2 Encounter for screening for malignant neoplasm of respiratory organs (principal); Z87.891 Personal history of nicotine dependence
CPT/HCPCS: 71271

== ENCOUNTER → 2023-02-24 12:31 | Outpatient (BNVA) | payer MEDICARE, OTHER, SELFPAY | PROVIDERS: PCP Family Medicine; Visit Provider Internal Medicine | DX: R07.9 Chest pain, unspecified (principal); I25.10 Atherosclerotic heart disease of native coronary artery without angina pectoris; Z95.5 Presence of coronary angioplasty implant and graft; J43.1 Panlobular emphysema; I10 Essential (primary) hypertension; G47.33 Obstructive sleep apnea (adult) (pediatric) | CPT/HCPCS: 93005; 99214 ==

== ENCOUNTER 2023-03-10 09:57 | Outpatient (CLI) | payer MEDICARE, OTHER, SELFPAY ==
--- NOTE | 2023-03-10 10:15 | USCV_ITS ---
Stage, Patricia Age: 63 Gender: F : 1960 Exam Date: 03/10/2023 10:27 Ordering Phys: Garry Georges M.D ([email or web address]) Technologist: Ann Parmar [place] [facility] [place]: Palpitations, bilateral swelling, [place], CHF BP: 156 / 95 HR: 117 Rhythm: Other Technical Quality: Good MEASUREMENTS (Male / Female) Normal Values 2D ECHO LV Diastolic Diameter PLAX 3.8 cm 4.2 - 5.9 / 3.9 - 5.3 cm LV Systolic Diameter PLAX 2.6 cm IVS Diastolic Thickness 0.9 cm 0.6 - 1.0 / 0.6 - 0.9 cm IVS Systolic Thickness 1.2 cm LVPW Diastolic Thickness 0.9 cm 0.6 - 1.0 / 0.6 - 0.9 cm LVPW Systolic Thickness 1.1 cm LVOT Diameter 2.0 cm LV Ejection Fraction 2D Teich 57.8 % LV Ejection Fraction MOD 2C 68.3 % LV Ejection Fraction 2C AL 68.1 % LA Diameter 2.4 cm LA Width 2.0 cm LA Height 4.2 cm RA Width 2.7 cm RA Height 3.5 cm Aorta at Sinotubular Diameter 2.7 cm IVC Diameter 1.7 cm M-MODE Aortic Annulus Diameter 2.9 cm LA Ao Ratio MM 0.9 MV E Point Septal Separation 0.5 cm DOPPLER AV Peak Velocity 114.0 cm/s LVOT Peak Velocity 84.0 cm/s AV Area Cont Eq vti 2.6 cm squared AV Area Cont Eq pk 2.3 cm squared MV Peak Velocity 140.0 cm/s MV Area PHT 5.0 cm squared Mitral E to A Ratio 0.3 MV E' Velocity 23.0 cm/s Mitral E to MV E' Ratio 1.4 Mitral E to LV E' Lateral Ratio 1.4 Mitral E to LV E' Septal Ratio 1.4 TR Peak Velocity 163.3 cm/s TR Peak Gradient 10.7 mmHg Right Atrial Pressure 5.0 mmHg Pulmonary Artery Systolic Pressu 15.7 mmHg PV Peak Velocity 96.0 cm/s RV Acceleration Time 0.1 s RV Ejection Time 0.2 s RV AcT/ET 0.5 FINDINGS Left Ventricle Left ventricle is normal size. LV systolic function is normal with EF of 55 to 60%. No regional wall motion abnormalities are seen. Right Ventricle Normal in size and function Right Atrium Normal in size Left Atrium Normal in size Mitral Valve Structurally normal mitral valve. Trace mitral regurgitation Aortic Valve Structurally normal aortic valve. No significant stenosis or regurgitation Tricuspid Valve Mild tricuspid regurgitation.RVSP is normal Pulmonic Valve Not well visualized Pericardium Normal Aorta Normal in size IVC Appears to be normal CONCLUSIONS LV systolic function is normal with EF of 55-60% Trace mitral regurgitation Mild tricuspid regurgitation No comparison studies are available Garry Georges MD (Electronically Signed) Final Date: 26 March 2023 08:31 S
== END 2023-03-10 09:58 | disposition home or self-care (01) ==
LOC: RAD 10:02
PROVIDERS: PCP Family Medicine; Visit Provider Internal Medicine
DX: R07.9 Chest pain, unspecified (principal); I50.9 Heart failure, unspecified; I07.1 Rheumatic tricuspid insufficiency; M25.471 Effusion, right ankle; M25.472 Effusion, left ankle; M25.474 Effusion, right foot; M25.475 Effusion, left foot; R00.2 Palpitations; R06.09 Other forms of dyspnea
CPT/HCPCS: 93306

== ENCOUNTER → 2023-03-27 13:34 | Outpatient (BNVA) | payer MEDICARE, OTHER, SELFPAY | PROVIDERS: PCP Family Medicine; Visit Provider Orthopaedic Surgery | DX: S39.92XA Unspecified injury of lower back, initial encounter (principal); X50.1XXA Overexertion from prolonged static or awkward postures, initial encounter; M54.9 Dorsalgia, unspecified | CPT/HCPCS: 72110; 99214 ==

== ENCOUNTER → 2023-04-21 12:09 | Outpatient (BNVA) | payer MEDICARE, OTHER, SELFPAY | PROVIDERS: PCP Family Medicine; Visit Provider Family Medicine | DX: N39.0 Urinary tract infection, site not specified (principal) | CPT/HCPCS: 80053; 81003; 85025; 85651; 86140 ==

== ENCOUNTER → 2023-04-22 13:37 | Outpatient (BNVA) | payer MEDICARE, OTHER, SELFPAY | PROVIDERS: PCP Family Medicine; Visit Provider Internal Medicine | DX: M81.0 Age-related osteoporosis without current pathological fracture (principal); E55.9 Vitamin D deficiency, unspecified | CPT/HCPCS: 82306; 99214 ==

== ENCOUNTER 2023-04-25 09:26 | Outpatient (CLI) | payer MEDICARE, OTHER, SELFPAY ==
--- NOTE | 2023-04-25 09:32 | MR_ITS ---
WS: [id number] MRI LUMBAR SPINE NONCONTRAST TECHNIQUE: Sagittal T1, T2 and STIR imaging. Axial T1 and T2 imaging. CLINICAL INFORMATION: lumbar pain COMPARISON: MRI 03/05/2022 FINDINGS: Thoracic kyphosis in the compensation vice president imaging. Prior chronic compression fractures with kyphoplasty changes and anterior wedging at T4-T7. Chronic compression at T3. Mild acute compression superior endplate T11 with mild edema. Loss of approximately 25% vertebral bod y height with fracture cleft in the superior endplate. Slight anterolisthesis L4 on L5. Chronic compr ession at L1 with kyphoplasty changes. Kyphoplasty is new since 03/05/2022. Mild central canal stenosis L4-5 with impingement traversing L5 nerve roots bilaterally. This is unch anged since 03/05/2022. T12-L1: Mild disc bulging with slight chronic retropulsion posterior superior cortex of L1. Mild shannan tral canal stenosis at this level. Mild RIGHT and no significant LEFT foraminal narrowing. Mild facet arthropathy. L1-L2: No significant disc bulging. Mild facet arthropathy. Spinal canal and foramen are patent. L2-L3: No significant disc bulging. Mild facet arthropathy. Spinal canal and foramen are patent. L3-L4: Mild annular bulging. Mild facet arthropathy. Slight effacement of ventral thecal sac. Tiny an nular fissure. Mild RIGHT and no significant LEFT foraminal narrowing. L4-L5: Grade 1 anterolisthesis. Mild disc bulge with impingement traversing L5 nerve roots bilaterall y. Mild central canal stenosis. Moderate facet arthropathy. Mild LEFT foraminal narrowing with slight impingement on the exiting LEFT L4 nerve root. Mild RIGHT foraminal narrowing. L5-S1: Mild annular bulging. Tiny annular fissure. Mild facet arthropathy. Mild RIGHT and no signific ant LEFT foraminal narrowing. Visualized pelvic bony structures: Normal. Paravertebral soft tissues: Normal. IMPRESSION: 1. Mild acute compression T11 superior endplate with diffuse edema. Minimal retropulsion the posteri or superior cortex. No high-grade central canal stenosis. Loss of approximately 25% vertebral body he ight. 2. Chronic compression of the L1 vertebral body with kyphoplasty changes. 3. Chronic compression and kyphoplasty changes in the upper thoracic spine described above. 4. Grade 1 anterolisthesis L4 on L5 with mild central canal stenosis. Impingement traversing LEFT gr eater than RIGHT L5 nerve roots. Mild LEFT foraminal narrowing impinges the exiting LEFT L4 nerve darrin t. 5. Mild annular bulging L3-4 with a tiny annular fissure and slight effacement of ventral thecal sac .
== END 2023-04-25 09:27 | disposition home or self-care (01) ==
PROVIDERS: PCP Family Medicine; Visit Provider Orthopaedic Surgery
DX: M54.9 Dorsalgia, unspecified (principal); M40.204 Unspecified kyphosis, thoracic region; M54.50 Low back pain, unspecified; M25.80 Other specified joint disorders, unspecified joint; R26.81 Unsteadiness on feet
CPT/HCPCS: 72148

== ENCOUNTER → 2023-04-30 14:48 | Outpatient (BNVA) | payer MEDICARE, OTHER, SELFPAY | PROVIDERS: PCP Family Medicine; Visit Provider Physician Assistant | DX: M81.0 Age-related osteoporosis without current pathological fracture (principal); S22.080A Wedge compression fracture of T11-T12 vertebra, initial encounter for closed fracture; X58.XXXA Exposure to other specified factors, initial encounter | CPT/HCPCS: 72100; 99213 ==

== ENCOUNTER 2023-05-02 14:17 | Outpatient (CLI) | payer MEDICARE, OTHER, SELFPAY ==
--- NOTE | 2023-05-02 14:30 | MR_ITS ---
WS: [id number] MRI THORACIC SPINE noncontrast. HISTORY: thoracic fracture COMPARISON: 03/05/2022 TECHNIQUE: Multiplanar sequences are performed in sagittal and axial planes. Increasing upper thoracic kyphosis. Thoracic scoliosis. Patient has known prior kyphoplasty changes at T4, T5, T7 and L1. Additional mild anterior wedging of T3 and T11. T11 fracture contains edema consistent with an acute fracture. Additional very minimal m arrow edema in the posterior and lateral T10 vertebral body. No loss of height or fracture. There is additional acute marrow edema in the LEFT T10 intra-articular facet and spinous process. Additional s mall amount of marrow edema in the posterior elements of T10 and T11 on the RIGHT. Biconcave fracture at T6 without kyphoplasty. No significant retropulsion of the vertebral bodies. There is no contact on the cord. Facet joint arthritis and foraminal narrowing at all levels in the thoracic spine. There is no cord c ompression. Posterior superior endplate of L1 encroaches upon but does not contact the ventral thecal sac. Similar mild central canal stenosis at the L1 level as 03/05/2022. There is a large hiatal hernia. IMPRESSION: 1. Acute to subacute T11 compression fracture by 10 to 15%. No retropulsion of any significance. Ther e is a small amount of marrow edema in the posterior elements of T10 and T11 as described above. 2. More subtle edema in the posterior T10 vertebral body without loss of height. 3. Chronic prior vertebral fractures with vertebroplasties at T4, T5, T7 and L1. Biconcave fracture a t T6 without kyphoplasty is stable.
== END 2023-05-02 14:18 | disposition home or self-care (01) ==
PROVIDERS: PCP Family Medicine; Visit Provider Physician Assistant
DX: S22.080A Wedge compression fracture of T11-T12 vertebra, initial encounter for closed fracture (principal); X58.XXXA Exposure to other specified factors, initial encounter; Z98.890 Other specified postprocedural states
CPT/HCPCS: 72146; 99213

== ENCOUNTER → 2023-05-08 08:22 | Outpatient (BNVA) | payer MEDICARE, OTHER, SELFPAY | PROVIDERS: PCP Family Medicine; Visit Provider Physician Assistant | DX: S22.080A Wedge compression fracture of T11-T12 vertebra, initial encounter for closed fracture; S22.070A Wedge compression fracture of T9-T10 vertebra, initial encounter for closed fracture; X58.XXXA Exposure to other specified factors, initial encounter | CPT/HCPCS: 99213 ==

== ENCOUNTER 2023-05-19 14:44 | Outpatient (CLI) | payer MEDICARE, OTHER, SELFPAY ==
[2023-05-19 15:08] LABS: Basophils # 0.1 10^3/uL (0.0-0.1); Basophils % 0.6 %; Eosinophils # 0.2 10^3/uL (0.0-0.8); Eosinophils % 2.7 %; Hematocrit 41.8 % (36-47); Lymphocytes # 2.8 10^3/uL (0.8-4.8); Lymphocytes % 32.7 %; Mean Corpuscular HGB Conc 32.3 g/dL (30-55); Mean Corpuscular Hemoglobin 31.3 pg (27-33); Mean Corpuscular Volume 96.8 fl (85-98); Mean Platelet Volume 8.6 fL (7.4-10.4); Monocytes # 0.7 10^3/uL (0.2-0.9); Monocytes % 7.6 %; Neutrophils # 4.81 10^3/uL (1.8-7.7); Neutrophils % 56.2 %; Nucleated Red Blood Cells % 0 %; Platelet Count 285 10^3/cmm (157-399); Red Blood Count 4.32 10^6/uL (3.85-5.65); Red Cell Distribution Width 12.6 % (12.1-15.1); White Blood Count 8.56 10^3/uL (3.29-11.43)
[2023-05-19 15:45] LABS: Alanine Aminotransferase 11 U/L (0-33); Albumin Level 4.3 g/dL (3.5-5.2); Alkaline Phosphatase 142 U/L (35-105); Anion Gap 12.6 (5-19); Aspartate Amino Transferase 12 U/L (0-32); Blood Urea Nitrogen 14 mg/dL (8-23); Calcium 9.6 mg/dL (8.5-10.5); Carbon Dioxide 33 mmol/L (22-29); Chloride 101 mmol/L (98-107); Globulin 2.9 g/dL (1.3-4.6); Glomerular Filtration Rate 123.8 mL/min (90-130); Glucose 210 mg/dL (65-115); Osmolality Calculated 301 mOsm/kg (285-295); Potassium 4.6 mmol/L (3.5-5.1); Sodium 142 mmol/L (136-145); Total Bilirubin 0.2 mg/dL (0.15-1.2); Total Protein 7.2 g/dL (6.6-8.7)
[2023-05-19 15:52] LABS: Estmated Average Glucose 123; Hemoglobin A1C 5.9 % (4.0-6.0)
== END 2023-05-19 14:45 | disposition home or self-care (01) ==
LOC: LAB 14:46
PROVIDERS: Physician Assistant; PCP Family Medicine; Referring Provider Internal Medicine; Visit Provider Orthopaedic Surgery
DX: Z01.818 Encounter for other preprocedural examination (principal); R73.03 Prediabetes
CPT/HCPCS: 36415; 80053; 83036; 85025

== ENCOUNTER → 2023-05-22 09:15 | Outpatient (BNVA) | payer MEDICARE, OTHER, SELFPAY | PROVIDERS: PCP Family Medicine; Visit Provider Family Medicine | DX: Z01.818 Encounter for other preprocedural examination (principal) | CPT/HCPCS: 81003 ==

== ENCOUNTER 2023-05-30 06:50 | Day surgery (SDC) | payer MEDICARE, OTHER, SELFPAY ==
[2023-05-30] VITALS (8 sets, daily range): BP systolic 120–140; BP diastolic 68–94; PULSE 98–120; RESP 12–20; TEMP 36.1–36.4; O2SAT 90–100; BMI 19.7
[2023-05-30] MEDS: sodium chloride 0.9% 1,000 ML 30 ML IV (07:20)
--- NOTE | 2023-05-30 07:35 | P.ANESASSM_ITS ---
Pre-Anesthetic Assessment Height/Weight: Height 1.57 m Weight 48.988 kg Temp Pulse Resp BP Pulse Ox O2 Del Method 97.6 F 120 H 18 131/86 91 Room Air 05/30/23 07:04 05/30/23 07:04 05/30/23 07:04 05/30/23 07:04 05/30/23 07:04 05/30/23 07:04 Preop Diagnosis: T10 and T11 compression fractures Operation Date: 05/30/23 08:35 Proposed Procedures p Kyphoplasty T10 T11(Not Applicable) - Cornell Balbuena, DO Familial anesthetic complications: None Was Beta Waldo taken within 24 hours: Yes Was Clonidine taken within 24 hours: N/A Last intake: Intake Last Liquid Date 05/30/23 Last Liquid Time 06:00 Last Solid Date 05/29/23 Last Solid Time 21:00 Social No alcohol and No tobacco Exam alert, oriented x 3, clear to auscultation bilaterally and regular rate & rhythm Airway Mallampati: Class I Dentition: chipped and other (missing) Pulmonary Chronic Obstructive Pulmonary Disease (on 2 L NC continously, but oftentimes doesn't wear it) and Sleep Apnea (CPAP) CV/HEM Stable Angina, Coronary Artery Disease (CABG and 4 Stents), Congestive Heart Edmundo lure and Hypertension EF 60% Anesthetic Plan ASA status: 4 Anesthesia: General Risk of > 500 ml blood loss (7ml/kg in children): No Medications/Allergies Home Medications Medication Instructions Recorded Confirmed Last Taken Type TLSO BRACE #1 ea 03/05/22 05/21/23 Unknown Rx albuterol 90 mcg/actuation aerosol 90 mcg inhalation DAILY 03/05/22 05/30/23 05/29/23 History inhaler aspirin 81 mg tablet,delayed 81 mg PO DAILY 03/05/22 05/29/23 05/22/23 History release (Adult Aspirin Regimen) calcium carbonate 600 mg calcium 600 mg PO DAILY 03/05/22 05/29/23 05/29/23 History (1,500 mg) tablet (Calcium) hydralazine 10 mg tablet 10 mg PO DAILY 03/05/22 05/29/23 05/29/23 History ranolazine 500 mg tablet,extended 500 mg PO BID #180 tabs 03/28/22 05/29/23 05/29/23 Rx release,12 hr (Ranexa) miscellaneous medical supply See Rx Instructions miscellaneous 04/02/22 05/29/23 Unknown Rx .COMPLEX #1 ea budesonide 0.5 mg/2 mL suspension 0.5 mg inhalation BID 04/25/22 05/30/2305/14 History for nebulization formoterol fumarate 20 mcg/2 mL 2 ml inhalation BID 04/25/22 05/29/23 05/29/23 History solution for nebulization gabapentin 100 mg capsule 100 mg PO BID 04/25/22 05/29/23 05/29/23 History revefenacin 175 mcg/3 mL solution 175 mcg inhalation DAILY 04/25/22 05/29/23 Unknown History for nebulization trazodone 100 mg tablet 100 mg PO DAILY PRN insomnia 05/09/22 05/29/23 Unknown History hydroxyzine HCl 25 mg tablet 25 mg PO BID PRN itching #30 tabs 07/30/22 05/29/23 05/29/23 Rx clopidogrel 75 mg tablet (Plavix) 75 mg PO DAILY #90 tabs 11/13/22 05/29/23 05/15/23 Rx metoprolol tartrate 50 mg tablet 50 mg PO BID #180 tabs 11/13/22 05/30/23 05/30/23 Rx (Lopressor) cholecalciferol (vitamin D3) 1,250 1,250 mcg PO .weekly #12 tabs 01/17/23 05/29/23 05/29/23 Rx mcg (50,000 unit) tablet (Dialyvite Vitamin D3 Max) alendronate 70 mg tablet (Fosamax) 70 mg PO DAILY 05/08/23 05/29/23 05/29/23 History Allergies Allergy/AdvReac Type Severity Reaction Status Date / Time metronidazole [From Flagyl] Allergy ALGY-Hives Verified 05/30/23 06:59 Current Medications Generic Name Dose Route Start Last Admin Trade Name Freq PRN Reason Stop Dose Admin Sodium Chloride 1,000 mls @ 30 mls/hr 05/30/23 07:00 05/30/23 07:20 Sodium Chloride 0.9% IV 05/31/23 06:59 30 mls/hr .Q24H CARLOS Administration PFSH Anesthesia Medical History COPD (chronic obstructive pulmonary disease) Osteoporosis Surgical History H/O heart artery stent H/O kyphoplasty Status post double vessel coronary artery bypass Social History Smoking and tobacco/nicotine status: never used tobacco/nicotine Quit status (tobacco/nicotine): has quit using Year quit tobacco: Apr 2022 Former quit date comment: 1ppd x 30years Second hand smoke exposure: Yes Alcohol intake: never Substance/Drug Use: never Adopted: No Caregiver/support person: Yes Lives independently: No Household members: spouse Housing: House Marital status: Number of children: 4 Number of grandchildren: 12 Highest education level completed: 10th Grade service: No Current occupational status: retired and disabled Current occupational exposures/hazards: No Pets and animals: No Sexually active: Yes Do you think of yourself as: Straight/Heterosexual Current gender identity: Female Special annika needs: No Agree to transfusion: Yes Female Reproductive History Spontaneous abortions: No Data Anesthesia Cardiac Studies: Echocardiogram 03/10/23
--- NOTE | 2023-05-30 08:19 | W.PM.OPSUD ---
Surgery/Procedure H&P Update DATE OF PROCEDURE: May 30, 2023 DATE H&P PERFORMED: 05/22/23 H&P UPDATE INFORMATION: I have reviewed H&P completed within last 30 days, I have examined patient prior to procedure and No changes to prior documentation PREOP DIAGNOSIS: T10 and T11 compression fractures PLANNED PROCEDURE: Operation Date: 05/30/23 08:35 Proposed Procedures p Kyphoplasty T10 T11(Not Applicable) - Cornell Balbuena DO
[2023-05-30] MEDS: ceFAZolin 2,000 MG in sodium chloride 0.9% (plus) 50 ML 100 MG IV (08:23)
--- NOTE | 2023-05-30 08:56 | SC_ITS ---
WS: [id number] C-ARM RADIOGRAPHS SPINE; 5 IMAGES HISTORY: kypho COMPARISON: None available. Intraoperative imaging for orthopedics during kyphoplasties. Multiple levels of methylmethacrylate ar e identified. The levels cannot be determined on the imaging submitted. IMPRESSION: Multilevel kyphoplasties performed during intraoperative guidance by C-arm.
[2023-05-30] MEDS: lidocaine-epi 2% 20 mL INJ 10 ML INJECTION (09:03)
--- NOTE | 2023-05-30 09:26 | PM.OP ---
Operative Report Date of procedure: May 30, 2023 Pre-op diagnosis: T10 and T11 wedge osteoporotic traumatic compression fracture Post-op diagnosis: same Procedure done: 1. T10 kyphoplasty 2. T11 kyphoplasty Surgeon: Cornell Balbuena DO Procedure: 1. T10 kyphoplasty 2. T11 kyphoplasty Patient brought the op suite after undergoing anesthesia was placed in the prone position. All his impingement well-padded. Patient was prepped draped also fashion. Skin incision was made over the T11 pedicle on the left. The awl was inserted. Next the drill was inserted. Next the balloon was inserted and inflated. This is in the center position of the anterior body. Balloon was deflated. Next attention was brought to the MELISSA 10 vertebrae. The incision is made lateral to the left pedicle again. The awl was inserted. Followed by the drill. Followed by the balloon. The balloon was inflated then deflated. Cement was then inserted into the T10 following on biplanar fluoroscopy. Once the cement was felt to have good fill. The attention was then brought to bringing the cement into the T11 vertebral body. This again was done under biplanar fluoroscopy. This point was felt to be in good position. While the cement hardened for a few seconds and then the tubes were pulled. There were no tears. AP lateral fluoroscopy ensured that the cement was in good position in the vertebrae. Wounds were then irrigated and closed with nylon suture.
[2023-05-30] MEDS: HYDROcodone-acetaminophen 5-325 mg Tablet 1 TAB PO (10:19)
--- NOTE | 2023-05-30 10:45 | ANE.PACU2 ---
Inpatient post-anesthesia follow up: Airway intact: Yes Vital signs: Temperature 97.2 F Pulse Rate 101 Respiratory Rate 16 Blood Pressure 130/72 Pulse Oximetry 91 Oxygen Delivery Me thod Room Air Oxygen Flow Rate 2 Fraction of Inspir ed Oxygen Hydration adequate: Yes Nausea and vomiting: No Pain level: 1 Mental status: Baseline
== END 2023-05-30 10:45 | disposition home or self-care (01) ==
PROVIDERS: PCP Family Medicine; Visit Provider Orthopaedic Surgery
PROC: (CPT 22513; principal; 2023-05-30 08:25)
DX: S22.070A Wedge compression fracture of T9-T10 vertebra, initial encounter for closed fracture (principal); S22.080A Wedge compression fracture of T11-T12 vertebra, initial encounter for closed fracture; X58.XXXA Exposure to other specified factors, initial encounter; J44.9 Chronic obstructive pulmonary disease, unspecified; Z99.81 Dependence on supplemental oxygen; G47.30 Sleep apnea, unspecified; I25.10 Atherosclerotic heart disease of native coronary artery without angina pectoris; Z95.1 Presence of aortocoronary bypass graft; Z95.5 Presence of coronary angioplasty implant and graft; I11.0 Hypertensive heart disease with heart failure; I50.9 Heart failure, unspecified; Z79.82 Long term (current) use of aspirin; M81.0 Age-related osteoporosis without current pathological fracture
CPT/HCPCS: 22513; 22515; 76000; J0690; J1100; J2371; J2405; J2704; J2710; J3010; J3490; J7030

== ENCOUNTER → 2023-06-12 13:52 | Outpatient (BNVA) | payer MEDICARE, OTHER, SELFPAY | PROVIDERS: PCP Family Medicine; Visit Provider Orthopaedic Surgery | DX: M79.673 Pain in unspecified foot (principal); M25.579 Pain in unspecified ankle and joints of unspecified foot; Z47.89 Encounter for other orthopedic aftercare | CPT/HCPCS: 99024; 99213 ==

== ENCOUNTER → 2023-06-17 10:01 | Outpatient (BNVA) | payer MEDICARE, OTHER, SELFPAY | PROVIDERS: PCP Family Medicine; Visit Provider Podiatrist Foot & Ankle Surgery | DX: S93.402A Sprain of unspecified ligament of left ankle, initial encounter; X50.9XXA Other and unspecified overexertion or strenuous movements or postures, initial encounter | CPT/HCPCS: 73610; 99203 ==

== ENCOUNTER → 2023-09-25 13:53 | Outpatient (BNVA) | payer MEDICARE, OTHER, SELFPAY | PROVIDERS: PCP Family Medicine; Visit Provider Internal Medicine Pulmonary Disease | DX: J43.1 Panlobular emphysema (principal); J96.11 Chronic respiratory failure with hypoxia; Z99.81 Dependence on supplemental oxygen; R91.1 Solitary pulmonary nodule; Z95.1 Presence of aortocoronary bypass graft; G47.33 Obstructive sleep apnea (adult) (pediatric); I20.89 Other forms of angina pectoris | CPT/HCPCS: 99214 ==

== ENCOUNTER 2023-10-07 08:48 | Outpatient (CLI) | payer MEDICARE, OTHER, SELFPAY ==
[2023-10-07 09:11] VITALS: BMI 20.2
--- NOTE | 2023-10-07 09:11 | NMCV_ITS ---
NM francia perf SPECT r/s* [id number] Stage, Patricia Age: 63 Gender: F : 1960 Exam Date: 10/07/2023 10:00 Ordering Phys: Alton Galaviz MD Technologist: CAYDEN Mahmood Exam Location: [facility] Indications: ANGINA PECTORIS STRESS TEST Please see separate stress test report in [facility] for full findings IMAGE PROTOCOL Rest/Stress 1 Lexiscan Day Radiopharmaceutical Dose (mCi) Administration Site Administered by Rest: Tc-99m 11.0 IV CAYDEN Mahmood Sestamibi Stress:Tc-99m 32.8 IV CAYDEN Hawley Sestamibi Rest: 07-Oct-2023 60 Discovery 630 Stress: 07-Oct-2023 30 Discovery 630 0.4mg Lexiscan. Supine position only as patient was unable to lay prone. SPECT RESULTS Technical Quality: Excellent Raw Data Analysis: Normal Image Corrections: No attenuation or motion correction applied Summed Stress Score: 1 Summed Rest Score: 2 Summed Difference Score: 0 PERFUSION FINDINGS SPECT images demonstrate homogeneous tracer distribution throughout the myocardium. FUNCTIONAL RESULTS (calculated via Gated SPECT) Stress Image LV EF (%): 85 Stress EDV (mL):54 TID: 0.9 Stress ESV (mL):8 FUNCTIONAL FINDINGS: There is normal left ventricular systolic function. IMPRESSIONS 1. Normal myocardial perfusion imaging with no evidence of ischemia 2. LV systolic function is normal Garry Georges MD (Electronically Signed) Final Date: 07 October 2023 12:02 S
--- NOTE | 2023-10-07 09:11 | ECG_ITS ---
[facility] Test Date: 2023-10-07 Pat Name: Patricia Tse Department: Room: Gender: Female Assembly Stock Supervisor: Denise Nayakfus : 1960 Requested By: Alton Garciar Fatemeh Order Number: [id number] Dede MD: Garry Georges M.D. Interpretive Statements NAME OF STUDY: LEXISCAN SESTAMIBI STRESS TEST INDICATION: [CP on exertion, ] Procedure: At the baseline, the blood pressure was 120/60 mmHg with a heart rate of 80 bpm. The electrocardiogram showed normal sinus rhythm, normal axis with normal ST and T's. The Lexiscan was infused over a period of 20 seconds. A total of 0.4 mg of Lexiscan was infused. The stress phase was continued for a total of 5 minutes. Heart rate was at the end of stress phase was 99 bpm and a blood pressure of 116/65 mmHg. The EKG at the peak infusion revealed normal sinus rhythm with no significant ST-T wave changes. Sestamibi was injected 20 seconds after the Lexiscan infusion. Blood pressure at the end of recovery phase was 115/67 mmHg with a heart rate of 95bpm. Conclusion: 1. Normal EKG response to Lexiscan infusion 2. No Lexiscan induced chest pain or cardiac arrhythmia. 3. Normal blood pressure and heart rate response. 4. Sestamibi/sestamibi perfusion scan pending; see separate report. Electronically Signed On 10-13-2023 12:21:14 CDT by Garry Georges M.D. [email or web address]
[2023-10-07] MEDS: regadenoson 0.4 Mg/5 ml Syringe 0.400000000000000022 MG IVP (10:39)
[2023-10-07 10:52] VITALS: BP 115/67; PULSE 96
== END 2023-10-07 08:49 | disposition home or self-care (01) ==
PROVIDERS: PCP Family Medicine; Visit Provider Internal Medicine Pulmonary Disease
DX: I20.89 Other forms of angina pectoris (principal)
CPT/HCPCS: 36415; 78452; 93017; 96374; A9500; J2785

== ENCOUNTER → 2023-12-05 09:50 | Outpatient (BNVA) | payer MEDICARE, OTHER, SELFPAY | PROVIDERS: PCP Family Medicine; Visit Provider Internal Medicine Pulmonary Disease | DX: J43.1 Panlobular emphysema (principal); J96.11 Chronic respiratory failure with hypoxia; Z99.81 Dependence on supplemental oxygen; R91.1 Solitary pulmonary nodule; Z95.1 Presence of aortocoronary bypass graft; G47.33 Obstructive sleep apnea (adult) (pediatric); Z87.891 Personal history of nicotine dependence | CPT/HCPCS: 99214 ==

== ENCOUNTER → 2023-12-10 12:26 | Outpatient (BNVA) | payer MEDICARE, OTHER, SELFPAY | PROVIDERS: PCP Family Medicine; Visit Provider Internal Medicine | DX: I25.10 Atherosclerotic heart disease of native coronary artery without angina pectoris (principal); Z95.5 Presence of coronary angioplasty implant and graft; J43.1 Panlobular emphysema; I10 Essential (primary) hypertension; G47.33 Obstructive sleep apnea (adult) (pediatric); Z87.891 Personal history of nicotine dependence | CPT/HCPCS: 99214 ==

== ENCOUNTER 2024-06-24 09:48 | Emergency (ER) | payer MEDICARE, OTHER, SELFPAY ==
[2024-06-24] VITALS (36 sets, daily range): BP systolic 125–160; BP diastolic 71–109; PULSE 81–146; RESP 13–24; TEMP 36.7; O2SAT 88–99; BMI 21.0
--- NOTE | 2024-06-24 09:57 | ECG_ITS ---
[facility] Test Date: 2024-06-24 Pat Name: Patricia Tse Department: Room: Gender: Female Vallez Filter Operator: : 1960 Requested By: Brijesh Peck Order Number: [id number] Dede MD: Garry Georges M.D. Measurements Intervals [place] Rate: 125 P: 23 MS: 161 QRS: 58 QRSD: 87 T: 31 QT: 305 QTc: 441 Interpretive Statements SINUS TACHYCARDIA LOW QRS VOLTAGE IN PRECORDIAL LEADS [QRS DEFLECTION < 1.0 mV IN CHEST LEADS] Compared to ECG 02/24/2023 12:37:17 Low QRS voltage now present Sinus rhythm no longer present Electronically Signed On 06-25-2024 09:32:36 DOOR TECHNICIAN by Garry Georges M.D. [email or web address]
--- NOTE | 2024-06-24 10:16 | XR_ITS ---
WS: [id number] Exam: XR chest 1V portable [id number] Date/Time of Exam: 06/24/2024 10:26 AM Reason For Exam: Shortness of breath No priors. Lungs are hyperinflated and clear. Coarsening of interstitial markings noted throughout both lungs. H eart size top limits normal. Signs of previous median sternotomy. Hiatal hernia. Vertebroplasty invol ving several lower thoracic and upper lumbar vertebra. The mediastinum is normal in contour. Coronary artery calcifications. XR/XR chest 1V portable [id number] IMPRESSION: 1. Pulmonary hyperinflation which may indicate obstructive lung disease. No acu te process noted.
[2024-06-24 10:39] LABS: ABG PCO2 58.9 mmHg (35-45); ABG PH Result 7.41 (7.35-7.45); Alveolar-Arterial Oxygen Gradi 8.9 mmHg (5-10); Arterial Blood Gas Hematocrit 27.7 % (37-47); Blood Gas Allen Test Pos; Blood Gas Operator Identificat GD; Blood Gas Sample Site Radial, right; Blood Gas Sample Type Arterial; Carboxyhemoglobin 1.3 %THgb (0.4-20.1); HCO3 ABG 37.2 mmol/L (22-26); HGB O2 Sat 89.8 % (95-100); Ionized Calcium Level - ABG 1.2 mmol/L (1.1-1.4); Methemoglobin 0.5 % (0.4-1.5); Oxygen Device NC; Oxygen Saturation ABG 91.4; PO2 ABG 61.7 mmHg (80.0-100.0); PO2 FiO2 Ratio Arterial Blood 220
[2024-06-24 10:57] LABS: Basophils # 0.1 10^3/uL (0.0-0.1); Basophils % 0.6 %; Eosinophils # 0.3 10^3/uL (0.0-0.8); Eosinophils % 3.9 %; Hematocrit 34.6 % (36-47); Lymphocytes # 1.7 10^3/uL (0.8-4.8); Lymphocytes % 21.8 %; Mean Corpuscular HGB Conc 28.3 g/dL (30-55); Mean Corpuscular Volume 84.8 fl (85-98); Mean Platelet Volume 9.1 fL (7.4-10.4); Monocytes # 0.5 10^3/uL (0.2-0.9); Monocytes % 6.8 %; Neutrophils # 5.26 10^3/uL (1.8-7.7); Neutrophils % 66.6 %; Nucleated Red Blood Cells % 0 %; Platelet Count 537 10^3/cmm (157-399); Red Blood Count 4.08 10^6/uL (3.85-5.65); Red Cell Distribution Width 18.4 % (12.1-15.1)
--- NOTE | 2024-06-24 11:00 | PC.PHAR ---
patient confirms meds but doesnt really take any of them as directed
--- NOTE | 2024-06-24 11:12 | ED_ITS ---
HPI - General Adult 2 General: Chief complaint: General Medical Stated complaint: Back pain & Sick Time Seen by Provider: 06/24/24 11:10 History of Present Illness: 64-year-old female comes in complaining of back pain worse when she coughs she has had coughing increasing shortness of breath. She has a history of COPD. She has not been having productive cough she has not had any fever sweats or chills chills. She has had multiple compression fractures in the breast and has kyphoplasty Associated symptoms: Deny chest pain, dyspnea or rash Related Data Home Medications Medication Instructions Recorded Confirmed aspirin 81 mg tablet,delayed 81 mg PO DAILY 03/05/22 06/24/24 release (Adult Aspirin Regimen) formoterol fumarate 20 mcg/2 mL 2 ml inhalation BID 04/25/22 06/24/24 solution for nebulization revefenacin 175 mcg/3 mL solution 175 mcg inhalation DAILY 04/25/22 06/24/24 for nebulization (Yupelri) Previous Rx's Medication Instructions Recorded budesonide 0.5 mg/2 mL suspension 0.5 mg (2 mL) inhalation BID #60 mL 07/21/23 for nebulization albuterol sulfate 90 mcg/actuation 2 puff inhalation Q6H PRN 12/09/23 aerosol inhaler shortness of breath or wheezing #8.5 grams clopidogrel 75 mg tablet (Plavix) 75 mg PO DAILY #90 tabs 12/09/23 gabapentin 100 mg capsule 100 mg PO TID #270 caps 12/09/23 metoprolol tartrate 50 mg tablet 50 mg PO BID #180 tabs 12/09/23 (Lopressor) cefdinir 300 mg capsule 300 mg PO BID #14 caps 06/24/24 doxycycline hyclate 100 mg capsule 100 mg PO BID 10 days #20 caps 06/24/24 hydrocodone 5 mg-acetaminophen 325 1 tab PO Q6H PRN pain #20 tabs 06/24/24 mg tablet ipratropium 0.5 mg-albuterol 3 mg 3 ml inhalation Q4H PRN shortness 06/24/24 (2.5 mg base)/3 mL nebulization of breath or wheezing #90 mL soln methylprednisolone 4 mg tablets in See Rx Instructions PO .COMPLEX 06/24/24 a dose pack (Medrol (Shane)) #21 ea Allergies Allergy/AdvReac Type Severity Reaction Status Date / Time metronidazole [From Flagyl] Allergy ALGY-Hives Verified 06/24/24 10:11 Review of Systems 2 Const: Denies: fever(s) or chills Card: Denies: chest pain Resp: Denies: dyspnea GI: Denies: abdominal pain : Denies: dysuria, urinary frequency or urinary urgency Musc: Denies: neck pain or back pain Skin/Breast: Denies: rash PFSH ED 2 PFSH: Medical History COPD (chronic obstructive pulmonary disease) Osteoporosis Surgical History Status post double vessel coronary artery bypass H/O heart artery stent H/O kyphoplasty Social History Smoking and tobacco/nicotine status: former use of tobacco/nicotine Quit status (tobacco/nicotine): has quit using Year quit tobacco: Apr 2022 Former quit date comment: 1ppd x 30years Second hand smoke exposure: Yes Alcohol intake: never Substance/Drug Use: never Adopted: No Caregiver/support person: Yes Lives independently: No Household members: spouse Housing: House Marital status: Number of children: 4 Number of grandchildren: 12 Highest education level completed: 10th Grade service: No Current occupational status: retired and disabled Current occupational exposures/hazards: No Pets and animals: No Sexually active: Yes Do you think of yourself as: Straight/Heterosexual Current gender identity: Female Special annika needs: No Agree to transfusion: Yes Female Reproductive History: Spontaneous abortions: No Physical Exam 2 Const: COMMON NORMALS: no acute distress GENERAL APPEARANCE: cooperative and comfortable ORIENTATION/CONSCIOUSNESS: Yes awake, Yes oriented to person, Yes oriented to place and Yes oriented to time HENMT: COMMON NORMALS: normocephalic, atraumatic and hearing grossly normal bilaterally HEAD & SCALP: normocephalic and atraumatic Resp: COMMON NORMALS: normal respiratory effort, No retractions, No use of accessory muscles and clear to auscultation bilaterally AUSCULTATION: clear to auscultation bilaterally Cardio: COMMON NORMALS: regular rate, regular rhythm and No murmurs present (Cardio) RATE: regular rate RHYTHM: regular rhythm GI: COMMON NORMALS: Soft to palpation and No hepatosplenomegaly present A USCULTATION: Yes normoactive bowel sounds PALPATION: Yes Soft to palpation, No Tenderness to palpation present (GI), No Guarding due to palpation present (GI) and Yes No hepatosplenomegaly present Extremity: COMMON NORMALS: normal to inspection, capillary refill normal, no clubbing, cyanosis or edema, no calf tenderness and no pedal edema Neuro: SENSORIUM/ORIENTATION: Yes oriented to person, Yes oriented to place and Yes oriented to time Skin: COMMON NORMALS: no rashes or lesions noted GENERAL SKIN EXAM: no rashes or lesions noted Course 2 Vital Signs: Vital signs: Vital Signs Temperature 98.1 F 06/24/24 10:05 Pulse Rate 120 H 06/24/24 13:40 Respiratory Rate 15 06/24/24 13:20 Blood Pressure 155/72 06/24/24 13:40 Pulse Oximetry 94 06/24/24 13:40 Oxygen Delivery Me thod Nasal Cannula 06/24/24 11:41 [facility] - General Adult Medical Decision Making COPD exacerbation with a thoracic compression fracture. Discharge patient home on steroid taper DuoNeb and cefdinir. Additionally set her up for outpatient orthopedic spine surgery to evaluate for possible kyphoplasty which she has had previously. Patient has incidental finding of cystitis. Started on cefdinir 300 twice daily for 7 days. Follow-up with primary care Medical Records I reviewed the patient's medical records. Lab Data I reviewed the patient's lab results. 06/24/24 10:40 06/24/24 10:40 Radiology Impressions Chest X-Ray 06/24/24 10:16 IMPRESSION: 1. Pulmonary hyperinflation which may indicate obstructive lung disease. No acute process noted. Lumbar Spine CT 06/24/24 11:20 IMPRESSION: 1. No acute lumbar spine fracture. 2. Prior stable vertebroplasty at L1. 3. L4-5: Moderate to severe central with bilateral subarticular recess and foraminal stenosis. Most significant disc contact on the traversing L5 nerve roots. 4. Mild central and subarticular recess encroachment at L3-4. 5. LEFT renal staghorn calculus, 11 x [address] 06/24/24 11:20 IMPRESSION: 1. Age-indeterminate but suspect acute to subacute T8 fracture. Fracture of approximately 10% along the superior endplate. No retropulsion. 2. Numerous prior vertebroplasties, T4, T5, T7, T10, T11 and L1. 3. Additional severe T6 fracture, chronic. Laboratory Results WBC 7.90 10^3/uL (3.29-11.43) 06/24/24 10:40 RBC 4.08 10^6/uL (3.85-5.65) 06/24/24 10:40 Hgb 9.80 g/dL (11.27-16.99) L 06/24/24 10:40 Hct 34.6 % (36-47) L 06/24/24 10:40 MCV 84.8 fl (85-98) L 06/24/24 10:40 MCH 24.0 pg (27-33) L 06/24/24 10:40 MCHC 28.3 g/dL (30-55) L 06/24/24 10:40 RDW 18.4 % (12.1-15.1) H 06/24/24 10:40 Plt Count 537 10^3/cmm (157-399) H 06/24/24 10:40 MPV 9.1 fL (7.4-10.4) 06/24/24 10:40 Neut % (Auto) 66.6 % 06/24/24 10:40 Lymph % (Auto) 21.8 % 06/24/24 10:40 [place] % (Auto) 6.8 % 06/24/24 10:40 Eos % (Auto) 3.9 % 06/24/24 10:40 Baso % (Auto) 0.6 % 06/24/24 10:40 Neut # (Auto) 5.26 10^3/uL (1.8-7.7) 06/24/24 10:40 Lymph # (Auto) 1.7 10^3/uL (0.8-4.8) 06/24/24 10:40 [place] # (Auto) 0.5 10^3/uL (0.2-0.9) 06/24/24 10:40 Eos # (Auto) 0.3 10^3/uL (0.0-0.8) 06/24/24 10:40 Baso # (Auto) 0.1 10^3/uL (0.0-0.1) 06/24/24 10:40 Nucleated RBC % (auto) 0 % 06/24/24 10:40 Nucleated RBCs # 0.0 /100WBC 06/24/24 10:40 Specimen Type Arterial 06/24/24 10:23 Sample Site Radial, right 06/24/24 10:23 ABG pH 7.41 (7.35-7.45) 06/24/24 10:23 ABG pCO2 58.9 mmHg (35-45) H 06/24/24 10:23 ABG pO2 61.7 mmHg (80.0-100.0) L 06/24/24 10:23 ABG PO2/FiO2 Ratio 220 06/24/24 10:23 ABG HCO3 37.2 mmol/L (22-26) H 06/24/24 10:23 ABG O2 Saturation 91.4 06/24/24 10:23 ABG Base Excess 11.0 mmol/L (-2.0-2.0) H 06/24/24 10:23 Jerson Test Pos 06/24/24 10:23 A-a O2 Gradient 8.9 mmHg (5-10) 06/24/24 10:23 Hematocrit 27.7 % (37-47) L 06/24/24 10:23 Hgb O2 Saturation 89.8 % (95-100) L 06/24/24 10:23 Carboxyhemoglobin 1.3 %THgb (0.4-20.1) 06/24/24 10:23 Methemoglobin 0.5 % (0.4-1.5) 06/24/24 10:23 Total Hemoglobin 9.0 g/dL (12-16) L 06/24/24 10:23 Sodium 144.0 mmol/L (131-143) H 06/24/24 10:23 Potassium 4.0 mmol/L (3.5-5.0) 06/24/24 10:23 Glucose 86.0 mg/dL (70-115) 06/24/24 10:23 Ionized Calcium 1.2 mmol/L (1.1-1.4) 06/24/24 10:23 O2 Delivery Device Nc 06/24/24 10:23 O2 Liters/Min 2.0 % 06/24/24 10:23 FiO2 28.0 % 06/24/24 10:23 Steel Fitter ID Gd 06/24/24 10:23 Sodium 140 mmol/L (136-145) 06/24/24 10:40 Potassium 4.6 mmol/L (3.5-5.1) 06/24/24 10:40 Chloride 98 mmol/L (98-107) 06/24/24 10:40 Carbon Dioxide 32 mmol/L (22-29) H 06/24/24 10:40 Anion Gap 14.6 (5-19) 06/24/24 10:40 BUN 17 mg/dL (8-23) 06/24/24 10:40 Creatinine 0.5 mg/dL (0.5-0.9) 06/24/24 10:40 GFR Calculation 123.4 mL/min (90-130) 06/24/24 10:40 Glucose 86 mg/dL (65-115) 06/24/24 10:40 Calculated Osmolality 291 mOsm/kg (285-295) 06/24/24 10:40 Lactic Acid 0.8 mmol/L (0.5-2.2) 06/24/24 10:50 Calcium 9.2 mg/dL (8.5-10.5) 06/24/24 10:40 Total Bilirubin 0.2 mg/dL (0.15-1.2) 06/24/24 10:40 AST 28 U/L (0-32) 06/24/24 10:40 ALT 20 U/L (0-33) 06/24/24 10:40 Alkaline Phosphatase 127 U/L (35-105) H 06/24/24 10:40 Troponin T Baseline 10 ng/L (0-10) 06/24/24 10:40 Troponin T 120 Minute 9.20 ng/L (0-10) 06/24/24 13:25 Delta Troponin T -0.80 ABS# (0-10) L 06/24/24 13:25 NT-Pro-B Natriuret Pep 78 pg/mL (0-125) 06/24/24 10:40 Total Protein 6.8 g/dL (6.6-8.7) 06/24/24 10:40 Albumin 3.9 g/dL (3.5-5.2) 06/24/24 10:40 Globulin 2.9 g/dL (1.3-4.6) 06/24/24 10:40 Urine Color Yellow (Yellow) 06/24/24 11:36 Urine Appearance Clear (CLEAR) 06/24/24 11:36 Urine pH 8.0 (5-7) A 06/24/24 11:36 Ur Specific [place] 1.009 (1.005-1.030) 06/24/24 11:36 Urine Protein Negative (Negative) 06/24/24 11:36 Urine Glucose (UA) Negative (Normal) 06/24/24 11:36 Urine Ketones Trace (Negative) 06/24/24 11:36 Urine Blood Negative (Negative) 06/24/24 11:36 Urine Nitrate Positive (Negative) A 06/24/24 11:36 Urine Bilirubin Negative (Negative) 06/24/24 11:36 Urine Urobilinogen 1.0 mg/dL (Negative) 06/24/24 11:36 Ur Leukocyte Esterase 1+ (Negative) A 06/24/24 11:36 Urine RBC 3-5 /hpf (0-2) 06/24/24 11:36 Urine WBC 6-10 /hpf (0-5) 06/24/24 11:36 Ur Squamous Epith Cells 0-5 /hpf (0-5) 06/24/24 11:36 Amorphous Sediment Not Reportable 06/24/24 11:36 Urine Bacteria 4+ /hpf (NONE) H 06/24/24 11:36 Hyaline Casts 0-4 /lpf H 06/24/24 11:36 Urine Opiates Screen Negative ng/mL (Negative) 06/24/24 11:36 Ur Barbiturates Screen Negative ng/mL (Negative) 06/24/24 11:36 Ur Phencyclidine Scrn Negative ng/mL (Negative) 06/24/24 11:36 Ur Amphetamines Screen Negative ng/mL (Negative) 06/24/24 11:36 U Benzodiazepines Scrn Negative ng/mL (Negative) 06/24/24 11:36 Urine Cocaine Screen Negative ng/mL (Negative) 06/24/24 11:36 U Marijuana (THC) Screen Negative ng/mL (Negative) 06/24/24 11:36 Coronavirus (PCR) Negative (Negative) 06/24/24 10:40 Influenza A (PCR) Negative (Negative) 06/24/24 10:40 Influenza Type B (PCR) Negative (Negative) 06/24/24 10:40 RSV (PCR) Negative (Negative) 06/24/24 10:40 All radiology interpretation(s) finalized by discharge Discharge Plan Discharge Patient Disposition: Home Clinical Impression: Compression fracture of thoracic vertebra, Acute exacerbation of chronic obstructive pulmonary disease Condition: Stable Prescriptions: New doxycycline hyclate 100 mg capsule 100 mg PO BID 10 Days Qty: 20 0RF methylprednisolone [Medrol (Shane)] 4 mg tablets,dose pack See Rx Instructions .ROUTE .COMPLEX Qty: 21 0RF Rx Instructions: orally per package directions ipratropium-albuterol 0.5 mg-3 mg(2.5 mg base)/3 mL solution for nebulization 3 ml inhalation Q4H PRN (Reason: shortness of breath or wheezing) Qty: 90 0RF hydrocodone-acetaminophen 5-325 mg tablet 1 tab PO Q6H PRN (Reason: pain) Qty: 20 0RF cefdinir 300 mg capsule 300 mg PO BID Qty: 14 0RF No Action aspirin [Adult Aspirin Regimen] 81 mg tablet,delayed release (DR/EC) 81 mg PO DAILY formoterol fumarate 20 mcg/2 mL solution for nebulization 2 ml inhalation BID Yupelri 175 mcg/3 mL solution for nebulization 175 mcg inhalation DAILY budesonide 0.5 mg/2 mL suspension for nebulization 0.5 mg inhalation BID Qty: 60 5RF clopidogrel [Plavix] 75 mg tablet 75 mg PO DAILY Qty: 90 3RF albuterol sulfate 90 mcg/actuation HFA aerosol inhaler 2 puff inhalation Q6H PRN (Reason: shortness of breath or wheezing) Qty: 8.5 3RF metoprolol tartrate [Lopressor] 50 mg tablet 50 mg PO BID Qty: 180 3RF gabapentin 100 mg capsule 100 mg PO TID Qty: 270 1RF Discharge Orders: Discharge ED (Routine); Ordered 06/24/24 Ordered By: Brijesh Zimmer Referrals: Nikko Berry DO [Primary Care Provider] - Patient Instructions: Opioid Safety, Pain Management Activity Restrictions/Additional Instructions: Thank you for choosing [facility] for your healthcare needs today. It is very important that you follow up as instructed or that you return to the Emergency Department should you have concerns or if your condition changes or worsens in any way. You are seen in the emergency room with complaint of pain in your back. You do have a thoracic compression fracture. Will follow have you follow-up with Dr. Balbuena's office for consideration of kyphoplasty. He also mild exacerbation of COPD will start you on a steroid taper and a course of oral antibiotics. Additionally there is a mild bladder infection the antibiotics you are started on for the COPD will also cover this. 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
[2024-06-24 11:20] LABS: Troponin(5th) Baseline 10 ng/L (0-10)
--- NOTE | 2024-06-24 11:20 | CT_ITS ---
WS: [id number] CT LUMBAR SPINE, noncontrast. HISTORY: Pain TECHNIQUE: Contiguous 2.0 mm axial imaging are performed. Sagittal and coronal reformats are submitte d and reviewed. All CT scans at [facility] use at least one of these dose optimization techni ques: automated exposure control; mA and/or kV adjustment per patient size (includes targeted exams w here dose is matched to clinical indication); or iterative reconstruction. IV contrast: None DLP: 706.84 mGy.cm COMPARISON: 04/30/2023 Slight anterolisthesis of L4. Prior vertebroplasty at L1. Stable L1 fracture by 20%. Advanced degener ative disc disease at L4-5. T12-L1: Slight retropulsion superior endplate of L1 with slight encroachment upon the ventral thecal sac. No high-grade stenosis. L1-2: Normal. L2-3: Normal. L3-4: Mild osteophytic ridging, ligamentum flavum and facet arthritis. Mild central and subarticular recess encroachment. L4-5: Diffuse annular disc bulging with osteophytic ridging, ligamentum flavum and facet arthritis. M oderate to severe central with bilateral subarticular recess and foraminal stenosis. Most significant disc encroachment upon the traversing L5 nerve roots. L5-S1: Mild annular disc bulging. Shallow RIGHT foraminal disc protrusion. Mild foraminal stenosis. Mild degenerative changes in the SI joints. Scattered atherosclerotic plaque abdominal aorta. LEFT re nal staghorn calculus [address]/CT lumbar spine wo con* [id number] IMPRESSION: 1. No acute lumbar spine fracture. 2. Prior stable vertebroplasty at L1. 3. L4-5: Moderate to severe central with bilateral subarticular recess and for aminal stenosis. Most significant disc contact on the traversing L5 nerve roots . 4. Mild central and subarticular recess encroachment at L3-4. 5. LEFT renal staghorn calculus, 11 x 13 mm.
--- NOTE | 2024-06-24 11:20 | CT_ITS ---
WS: [id number] CT THORACIC SPINE HISTORY: Pain, difficulty walking. TECHNIQUE: Contiguous 2.0 mm axial images are reviewed to thoracic spine. Images are reformatted in s agittal and coronal planes. All CT scans at [facility] use at least one of these dose optimiz ation techniques: automated exposure control; mA and/or kV adjustment per patient size (includes targ eted exams where dose is matched to clinical indication); or iterative reconstruction. DLP: 706.84 mGy.cm COMPARISON: MRI 05/02/2023 Bones are osteopenic. Increase in thoracic kyphosis. Prior vertebroplasties at T4, T5, T7, T10, T11 and L1. Additional osteoporotic compression deformities without vertebroplasty at T3, T6, T8. T8 fracture with approximately 10% loss of height is new since 05/02/2023 and may be acute to subacut e. Fracture line is still evident along the superior endplate. Severe vertebral plana of fracture of T6 was present on the prior MRI. No cord compression. No focal disc protrusions are identified. No subluxation of the facet joints. No high-grade central stenosis. Mild foraminal stenosis throughout the thoracic spine. Large hiatal hernia. Severe emphysema. Calcified granuloma RIGHT lower lobe. Splenic granulomata. CT/CT thoracic spin wo con* [id number] IMPRESSION: 1. Age-indeterminate but suspect acute to subacute T8 fracture. Fracture of ap proximately 10% along the superior endplate. No retropulsion. 2. Numerous prior vertebroplasties, T4, T5, T7, T10, T11 and L1. 3. Additional severe T6 fracture, chronic.
[2024-06-24 11:21] LABS: Lactic Sepsis W/Reflex 0.8 mmol/L (0.5-2.2)
[2024-06-24 11:31] LABS: Alanine Aminotransferase 20 U/L (0-33); Albumin Level 3.9 g/dL (3.5-5.2); Alkaline Phosphatase 127 U/L (35-105); Blood Urea Nitrogen 17 mg/dL (8-23); Calcium 9.2 mg/dL (8.5-10.5); Carbon Dioxide 32 mmol/L (22-29); Chloride 98 mmol/L (98-107); Globulin 2.9 g/dL (1.3-4.6); Glomerular Filtration Rate 123.4 mL/min (90-130); Glucose 86 mg/dL (65-115); NT Pro B Type Natriuretic Pept 78 pg/mL (0-125); Osmolality Calculated 291 mOsm/kg (285-295); Sodium 140 mmol/L (136-145); Total Bilirubin 0.2 mg/dL (0.15-1.2); Total Protein 6.8 g/dL (6.6-8.7)
[2024-06-24 11:35] LABS: Anion Gap 14.6 (5-19); Aspartate Amino Transferase 28 U/L (0-32); Potassium 4.6 mmol/L (3.5-5.1)
[2024-06-24 11:38] LABS: Slide Review Slide Review Perform
[2024-06-24] MEDS: ondansetron 2 mg/ML SDV 2 mL 4 MG IVP (11:40)
[2024-06-24] MEDS: morphine 4 mg/mL SDV 1 mL IVP (11:40)
[2024-06-24] MEDS: dexamethasone 10 mg/mL INJ IM (11:40)
[2024-06-24 11:48] LABS: Bilirubin Urine Negative (Negative); Blood Urine Negative (Negative); Glucose Urine UA Negative (Normal); Ketones Urine Trace (Negative); Leukocyte Esterase Urine 1+ (Negative); Nitrate Urine Positive (Negative); Protein Urine Negative (Negative); Specific Gravity, Urine 1.009 (1.005-1.030); Urine Appearance Clear (CLEAR); Urine Color Yellow (Yellow)
[2024-06-24 11:48] LABS: Covid PCR NEGATIVE (Negative); Influenza A NEGATIVE (Negative); Influenza B NEGATIVE (Negative); Respiratory Syncytial Virus Ce NEGATIVE (Negative)
[2024-06-24 11:51] LABS: Bacteria Urine 4+ /hpf; Hyaline Casts Urine 0-4 /lpf; Squamous Epithelial Cell Urine 0-5 /hpf (0-5)
[2024-06-24 11:56] LABS: Amphetamines Screen Urine Negative (Negative); Barbiturates Screen Urine Negative (Negative); Benzodiazepines Screen Urine Negative (Negative); Cocaine Screen Urine Negative (Negative); Opiate Screen Urine Negative (Negative); PCP Screen Urine Negative (Negative); THC Screen Urine Negative (Negative)
--- NOTE | 2024-06-24 12:17 | ECG_ITS ---
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 Measurements Intervals [place] Rate: 119 P: -10 MD: 171 QRS: 61 QRSD: 83 T: 64 QT: 317 QTc: 447 Interpretive Statements SINUS TACHYCARDIA LOW QRS VOLTAGE IN PRECORDIAL LEADS [QRS DEFLECTION < 1.0 mV IN CHEST LEADS] Compared to ECG 06/24/2024 10:00:35 No significant changes Electronically Signed On 06-25-2024 22:10:17 DEXIGRAPH OPERATOR by Garry Georges M.D. [id number]
[2024-06-24 12:22] LABS: Add Urine Culture? Yes
--- NOTE | 2024-06-24 16:47 | DCPLANNER ---
messaged ortho for er f/u
== END 2024-06-24 13:41 | disposition home or self-care (01) ==
PROVIDERS: Emergency Medicine; Emergency Provider Family Medicine; PCP Family Medicine
DX: S22.050A Wedge compression fracture of T5-T6 vertebra, initial encounter for closed fracture (principal); J44.1 Chronic obstructive pulmonary disease with (acute) exacerbation; Z11.52 Encounter for screening for COVID-19; Z87.891 Personal history of nicotine dependence; X58.XXXA Exposure to other specified factors, initial encounter
CPT/HCPCS: 0241U; 36415; 36600; 71045; 72072; 72110; 72128; 72131; 80048; 80051; 80053; 80306; 81001; 82330; 82805; 83605; 83880; 84484; 85025; 87077; 87086; 87186; 93005; 96372; 96374; 96375; 99214; 99285; J1100; J2270; J2405

== ENCOUNTER 2024-06-28 13:21 | Emergency (ER) | payer MEDICARE, OTHER, SELFPAY ==
[2024-06-28 13:34] VITALS: BP 130/80; PULSE 110; RESP 18; TEMP 36.7; O2SAT 95
--- NOTE | 2024-06-28 13:41 | ECG_ITS ---
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 Measurements Intervals [place] Rate: 127 P: 36 PA: 136 QRS: 53 QRSD: 90 T: 61 QT: 307 QTc: 447 Interpretive Statements SINUS TACHYCARDIA ABNORMAL RHYTHM ECG Compared to ECG 06/24/2024 12:22:15 No significant changes Electronically Signed On 06-28-2024 19:29:09 ELEVATOR CONDUCTOR by Ricky Orellana M.D. [id number]
--- NOTE | 2024-06-29 16:39 | PC.NURSE ---
Attempted to call pt. Her granddaughter had her phone.
== END 2024-06-28 19:07 | disposition left against medical advice (07) ==
PROVIDERS: Emergency Provider Family Medicine; PCP Family Medicine
DX: Z53.21 Procedure and treatment not carried out due to patient leaving prior to being seen by health care provider (principal)
CPT/HCPCS: 93005

== ENCOUNTER 2024-06-29 19:16 | Emergency (ER) | payer MEDICARE, OTHER, SELFPAY ==
[2024-06-29] VITALS (9 sets, daily range): BP systolic 109–136; BP diastolic 52–73; PULSE 90–131; RESP 16–20; TEMP 36.8; O2SAT 96–100
--- NOTE | 2024-06-29 19:40 | ECG_ITS ---
[facility] Date: 2024-06-29 Pat Name: Patricia Tse Department: Room: Gender: Female System Safety Manager: : 1960 Requested By: Carole Cherry Order Number: [id number] Dede MD: Ricky Orellana M.D. Measurements Intervals [place] Rate: 99 P: 89 GA: 142 QRS: 69 QRSD: 87 T: 81 QT: 330 QTc: 424 Interpretive Statements SINUS RHYTHM POSSIBLE RIGHT ATRIAL ENLARGEMENT [0.25mV P-WAVE] Compared to ECG 06/28/2024 13:44:51 Sinus tachycardia no longer present Electronically Signed On 06-30-2024 21:22:50 MAKEUP ARTIST by Ricky Orellana M.D. [email or web address]
--- NOTE | 2024-06-29 19:57 | W.ED.FEMALGU ---
HPI - Female Genitourinary General: Chief complaint: Urogenital-Female Stated complaint: ER called and ask Her to return Time Seen by Provider: 06/29/24 19:38 Source: patient Mode of arrival: ambulatory Limitations: no limitations History of Present Illness: 64-year-old female states she has been having some generalized weakness not feeling well states she was seen here 4 days ago diagnosed with a UTI she has been on cefdinir states she has not felt improved still having fatigue malaise she states she has some redness to her right arm where she had her IV she denies any vomiting denies any fever Associated symptoms: Reports nausea; Deny abdominal pain or headache(s) Related Data Home Medications Medication Instructions Recorded Confirmed aspirin 81 mg tablet,delayed 81 mg PO DAILY 03/05/22 06/24/24 release (Adult Aspirin Regimen) formoterol fumarate 20 mcg/2 mL 2 ml inhalation BID 04/25/22 06/24/24 solution for nebulization revefenacin 175 mcg/3 mL solution 175 mcg inhalation DAILY 04/25/22 06/24/24 for nebulization (Yupelri) Previous Rx's Medication Instructions Recorded budesonide 0.5 mg/2 mL suspension 0.5 mg (2 mL) inhalation BID #60 mL 07/21/23 for nebulization albuterol sulfate 90 mcg/actuation 2 puff inhalation Q6H PRN 12/09/23 aerosol inhaler shortness of breath or wheezing #8.5 grams clopidogrel 75 mg tablet (Plavix) 75 mg PO DAILY #90 tabs 12/09/23 gabapentin 100 mg capsule 100 mg PO TID #270 caps 12/09/23 metoprolol tartrate 50 mg tablet 50 mg PO BID #180 tabs 12/09/23 (Lopressor) cefdinir 300 mg capsule 300 mg PO BID #14 caps 06/24/24 doxycycline hyclate 100 mg capsule 100 mg PO BID 10 days #20 caps 06/24/24 hydrocodone 5 mg-acetaminophen 325 1 tab PO Q6H PRN pain #20 tabs 06/24/24 mg tablet ipratropium 0.5 mg-albuterol 3 mg 3 ml inhalation Q4H PRN shortness 06/24/24 (2.5 mg base)/3 mL nebulization of breath or wheezing #90 mL soln methylprednisolone 4 mg tablets in See Rx Instructions PO .COMPLEX 06/24/24 a dose pack (Medrol (Shane)) #21 ea Allergies Allergy/AdvReac Type Severity Reaction Status Date / Time metronidazole [From Flagyl] Allergy ALGY-Hives Verified 06/29/24 19:30 Review of Systems Const: Reports: chills; Denies: fever(s), body aches or change in appetite ENMT: Denies: throat pain or dental pain Card: Denies: chest pain Resp: Denies: dyspnea GI: Reports: nausea; Denies: abdominal pain, vomiting or diarrhea : Reports: dysuria Musc: Denies: neck pain or back pain Skin/Breast: Reports: erythema; Denies: rash Neuro: Denies: headache(s) PFSH ED PFSH: Medical History COPD (chronic obstructive pulmonary disease) Osteoporosis Surgical History Status post double vessel coronary artery bypass H/O heart artery stent H/O kyphoplasty Social History Smoking and tobacco/nicotine status: former use of tobacco/nicotine Quit status (tobacco/nicotine): has quit using Year quit tobacco: Apr 2022 Former quit date comment: 1ppd x 30years Second hand smoke exposure: Yes Alcohol intake: never Substance/Drug Use: never Adopted: No Caregiver/support person: Yes Lives independently: No Household members: spouse Housing: House Marital status: Number of children: 4 Number of grandchildren: 12 Highest education level completed: 10th Grade service: No Current occupational status: retired and disabled Current occupational exposures/hazards: No Pets and animals: No Sexually active: Yes Do you think of yourself as: Straight/Heterosexual Current gender identity: Female Special annika needs: No Agree to transfusion: Yes Female Reproductive History: Spontaneous abortions: No Physical Exam Const: COMMON NORMALS: no acute distress, patient oriented x3 and healthy appearing HENMT: COMMON NORMALS: normocephalic and atraumatic HEAD & SCALP: normocephalic and atraumatic Eye: COMMON NORMALS: conjunctivae normal CONJUNCTIVA: Yes conjunctivae normal Neck/C-Spine: COMMON NORMALS: full ROM and supple Chest: COMMONS NORMALS: normal inspection of the chest and normal palpation of entire chest wall Resp: COMMON NORMALS: normal respiratory effort, No retractions, No use of accessory muscles and clear to auscultation bilaterally AUSCULTATION: clear to auscultation bilaterally Cardio: COMMON NORMALS: regular rate, regular rhythm and No murmurs present (Cardio) RATE: regular rate RHYTHM: regular rhythm GI: COMMON NORMALS: Normal to inspection, nondistended, normoactive bowel sounds present, Soft to palpation, non-tender and no masses PALPATION: Yes Soft to palpation Extremity: COMMON NORMALS: full ROM NARRATIVE EXTREMITY EXAM: Erythema noted to right forearm Neuro: COMMON NORMALS: patient oriented x3, moves all extremities and no focal motor deficits Psych: COMMON NORMALS: mental status grossly normal, Normal thought process present and cooperative THOUGHT PROCESS: Normal thought process present Skin: COMMON NORMALS: no rashes or lesions noted and no wounds GENERAL SKIN EXAM: no rashes or lesions noted Course Vital Signs: Vital signs: Vital Signs Temperature 98.2 F 06/29/24 19:22 Pulse Rate 102 H 06/29/24 20:45 Respiratory Rate 18 06/29/24 20:45 Blood Pressure 123/65 06/29/24 20:45 Pulse Oximetry 97 06/29/24 20:45 Oxygen Delivery Me thod Nasal Cannula 06/29/24 19:22 Oxygen Flow Rate 2 06/29/24 19:22 MDM - Female Medical Decision Making Patient presents here she is called about a urine culture she is on cefdinir the culture is sensitive to cefdinir she had some weakness she is dehydrated she feels much improved here after IV fluids her urinalysis here today is normal she is to continue the cefdinir she had some mild erythema to her right arm is actually improved at this time she is to watch out follow-up with PCP return if worsening. Medical Records I reviewed the patient's medical records. Lab Data I reviewed the patient's lab results. 06/29/24 20:14 06/29/24 20:14 Laboratory Results WBC 12.04 10^3/uL (3.29-11.43) H 06/29/24 20:14 RBC 3.59 10^6/uL (3.85-5.65) L 06/29/24 20:14 Hgb 8.80 g/dL (11.27-16.99) L 06/29/24 20:14 Hct 29.8 % (36-47) L 06/29/24 20:14 MCV 83.0 fl (85-98) L 06/29/24 20:14 MCH 24.5 pg (27-33) L 06/29/24 20:14 MCHC 29.5 g/dL (30-55) L 06/29/24 20:14 RDW 19.4 % (12.1-15.1) H 06/29/24 20:14 Plt Count 504 10^3/cmm (157-399) H 06/29/24 20:14 MPV 8.4 fL (7.4-10.4) 06/29/24 20:14 Neut % (Auto) 77.2 % 06/29/24 20:14 Lymph % (Auto) 14.5 % 06/29/24 20:14 Guthrie % (Auto) 6.6 % 06/29/24 20:14 Eos % (Auto) 1.2 % 06/29/24 20:14 Baso % (Auto) 0.3 % 06/29/24 20:14 Neut # (Auto) 9.29 10^3/uL (1.8-7.7) H 06/29/24 20:14 Lymph # (Auto) 1.7 10^3/uL (0.8-4.8) 06/29/24 20:14 Guthrie # (Auto) 0.8 10^3/uL (0.2-0.9) 06/29/24 20:14 Eos # (Auto) 0.2 10^3/uL (0.0-0.8) 06/29/24 20:14 Baso # (Auto) 0.0 10^3/uL (0.0-0.1) 06/29/24 20:14 Nucleated RBC % (auto) 0 % 06/29/24 20:14 Nucleated RBCs # 0.0 /100WBC 06/29/24 20:14 Sodium 147 mmol/L (136-145) H 06/29/24 20:14 Potassium 4.2 mmol/L (3.5-5.1) 06/29/24 20:14 Chloride 98 mmol/L (98-107) 06/29/24 20:14 Carbon Dioxide 33 mmol/L (22-29) H 06/29/24 20:14 Anion Gap 20.2 (5-19) H 06/29/24 20:14 BUN 19 mg/dL (8-23) 06/29/24 20:14 Creatinine 0.6 mg/dL (0.5-0.9) 06/29/24 20:14 GFR Calculation 100.0 mL/min (90-130) 06/29/24 20:14 Glucose 198 mg/dL (65-115) H 06/29/24 20:14 Calculated Osmolality 312 mOsm/kg (285-295) H 06/29/24 20:14 Calcium 9.6 mg/dL (8.5-10.5) 06/29/24 20:14 Total Bilirubin 0.2 mg/dL (0.15-1.2) 06/29/24 20:14 AST 14 U/L (0-32) 06/29/24 20:14 ALT 15 U/L (0-33) 06/29/24 20:14 Alkaline Phosphatase 131 U/L (35-105) H 06/29/24 20:14 Total Protein 7.1 g/dL (6.6-8.7) 06/29/24 20:14 Albumin 4.0 g/dL (3.5-5.2) 06/29/24 20:14 Globulin 3.1 g/dL (1.3-4.6) 06/29/24 20:14 Lipase 24 U/L (13-60) 06/29/24 20:14 Urine Color Yellow (Yellow) 06/29/24 20:14 Urine Appearance Clear (CLEAR) 06/29/24 20:14 Urine pH 6.5 (5-7) 06/29/24 20:14 Ur Specific [place] 1.016 (1.005-1.030) 06/29/24 20:14 Urine Protein Negative (Negative) 06/29/24 20:14 Urine Glucose (UA) Negative (Normal) 06/29/24 20:14 Urine Ketones Negative (Negative) 06/29/24 20:14 Urine Blood Negative (Negative) 06/29/24 20:14 Urine Nitrate Negative (Negative) 06/29/24 20:14 Urine Bilirubin Negative (Negative) 06/29/24 20:14 Urine Urobilinogen 1.0 mg/dL (Negative) 06/29/24 20:14 Ur Leukocyte Esterase Trace (Negative) A 06/29/24 20:14 Urine RBC 0-2 /hpf (0-2) 06/29/24 20:14 Urine WBC 0-5 /hpf (0-5) 06/29/24 20:14 Ur Squamous Epith Cells 0-5 /hpf (0-5) 06/29/24 20:14 Amorphous Sediment Not Reportable 06/29/24 20:14 Urine Bacteria None seen /hpf (NONE) 06/29/24 20:14 Hyaline Casts 0-4 /lpf H 06/29/24 20:14 All radiology interpretation(s) finalized by discharge EKG Data EKG 1: I personally reviewed and interpreted this EKG as follows: EKG Data: 06/29/24 EKG interpretation time: 19:56 Interpretation: nsr hr [address] or t wave abnormalities qrs 87 qtc 386 Discharge Plan Discharge Patient Disposition: Home Clinical Impression: Dehydration, Generalized weakness, UTI (urinary tract infection) Condition: Stable Prescriptions: No Action aspirin [Adult Aspirin Regimen] 81 mg tablet,delayed release (DR/EC) 81 mg PO DAILY formoterol fumarate 20 mcg/2 mL solution for nebulization 2 ml inhalation BID Yupelri 175 mcg/3 mL solution for nebulization 175 mcg inhalation DAILY budesonide 0.5 mg/2 mL suspension for nebulization 0.5 mg inhalation BID Qty: 60 5RF clopidogrel [Plavix] 75 mg tablet 75 mg PO DAILY Qty: 90 3RF albuterol sulfate 90 mcg/actuation HFA aerosol inhaler 2 puff inhalation Q6H PRN (Reason: shortness of breath or wheezing) Qty: 8.5 3RF metoprolol tartrate [Lopressor] 50 mg tablet 50 mg PO BID Qty: 180 3RF gabapentin 100 mg capsule 100 mg PO TID Qty: 270 1RF doxycycline hyclate 100 mg capsule 100 mg PO BID 10 Days Qty: 20 0RF methylprednisolone [Medrol (Shane)] 4 mg tablets,dose pack See Rx Instructions .ROUTE .COMPLEX Qty: 21 0RF Rx Instructions: orally per package directions ipratropium-albuterol 0.5 mg-3 mg(2.5 mg base)/3 mL solution for nebulization 3 ml inhalation Q4H PRN (Reason: shortness of breath or wheezing) Qty: 90 0RF hydrocodone-acetaminophen 5-325 mg tablet 1 tab PO Q6H PRN (Reason: pain) Qty: 20 0RF cefdinir 300 mg capsule 300 mg PO BID Qty: 14 0RF Discharge Orders: Discharge ED (Routine); Ordered 06/29/24 Ordered By: Carole Cherry Referrals: Nikko Berry DO [Primary Care Provider] - 4-7 days Discharge Diet: Advance as tolerated Discharge Activity: Resume usual activity Patient Instructions: Dehydration (ED), Urinary Tract Infection in Men (ED) Coding Level of Care Code ED 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
[2024-06-29 20:21] LABS: Basophils % 0.3 %; Eosinophils # 0.2 10^3/uL (0.0-0.8); Eosinophils % 1.2 %; Hematocrit 29.8 % (36-47); Lymphocytes # 1.7 10^3/uL (0.8-4.8); Lymphocytes % 14.5 %; Mean Corpuscular HGB Conc 29.5 g/dL (30-55); Mean Corpuscular Hemoglobin 24.5 pg (27-33); Mean Platelet Volume 8.4 fL (7.4-10.4); Monocytes # 0.8 10^3/uL (0.2-0.9); Monocytes % 6.6 %; Neutrophils # 9.29 10^3/uL (1.8-7.7); Neutrophils % 77.2 %; Nucleated Red Blood Cells % 0 %; Platelet Count 504 10^3/cmm (157-399); Red Blood Count 3.59 10^6/uL (3.85-5.65); Red Cell Distribution Width 19.4 % (12.1-15.1); White Blood Count 12.04 10^3/uL (3.29-11.43)
[2024-06-29 20:25] LABS: Bilirubin Urine Negative (Negative); Blood Urine Negative (Negative); Glucose Urine UA Negative (Normal); Ketones Urine Negative (Negative); Leukocyte Esterase Urine Trace (Negative); Nitrate Urine Negative (Negative); Protein Urine Negative (Negative); Specific Gravity, Urine 1.016 (1.005-1.030); Urine Appearance Clear (CLEAR); Urine Color Yellow (Yellow); pH Urine 6.5 (5-7)
[2024-06-29 20:27] LABS: Add Urine Microscopic? YES; Bacteria Urine None Seen /hpf; Hyaline Casts Urine 0-4 /lpf; RBC Urine 0-2 /hpf (0-2); Squamous Epithelial Cell Urine 0-5 /hpf (0-5); WBC Urine 0-5 /hpf (0-5)
[2024-06-29 20:39] LABS: Alanine Aminotransferase 15 U/L (0-33); Alkaline Phosphatase 131 U/L (35-105); Anion Gap 20.2 (5-19); Aspartate Amino Transferase 14 U/L (0-32); Blood Urea Nitrogen 19 mg/dL (8-23); Calcium 9.6 mg/dL (8.5-10.5); Carbon Dioxide 33 mmol/L (22-29); Chloride 98 mmol/L (98-107); Globulin 3.1 g/dL (1.3-4.6); Glucose 198 mg/dL (65-115); Lipase 24 U/L (13-60); Osmolality Calculated 312 mOsm/kg (285-295); Potassium 4.2 mmol/L (3.5-5.1); Sodium 147 mmol/L (136-145); Total Bilirubin 0.2 mg/dL (0.15-1.2); Total Protein 7.1 g/dL (6.6-8.7)
[2024-06-29] MEDS: sodium chloride 0.9% 1,000 ML 999 ML IV (21:17)
[2024-06-29] MEDS: cefTRIAXone 1,000 mg SDV 1000 MG IVP (21:38)
== END 2024-06-29 22:19 | disposition home or self-care (01) ==
PROVIDERS: Emergency Provider Emergency Medicine; PCP Family Medicine
DX: E86.0 Dehydration (principal); R53.1 Weakness; N39.0 Urinary tract infection, site not specified; Z79.02 Long term (current) use of antithrombotics/antiplatelets; Z87.891 Personal history of nicotine dependence; J44.9 Chronic obstructive pulmonary disease, unspecified
CPT/HCPCS: 36415; 80053; 81001; 83690; 85025; 87040; 93005; 96361; 96374; 99284; J0696; J7030

== ENCOUNTER 2024-06-30 12:15 | Outpatient (CLI) | payer MEDICARE, OTHER, SELFPAY ==
--- NOTE | 2024-06-30 12:15 | MR_ITS ---
WS: [id number] MRI LUMBAR SPINE NONCONTRAST TECHNIQUE: Sagittal T1, T2 and STIR imaging. Axial T1 and T2 imaging. CLINICAL INFORMATION: compression fx COMPARISON: MRI 04/25/2023 FINDINGS: Mild lumbar curve. Chronic compression L1 vertebral body is unchanged since 2022. Chronic partial vis ualized compression T11. Kyphoplasty changes at L1. Grade 1 anterolisthesis L4 on L5 similar to previ ous. L1-L2: Chronic compression L1 with kyphoplasty changes. Minimal retropulsion the posterior superior c ortex with mild central canal stenosis is unchanged. Foramen are patent. L2-L3: Mild facet arthropathy. Spinal canal and foramen are patent. L3-L4: Mild annular bulging. Mild facet arthropathy. Spinal canal and foramen are patent. L4-L5: Grade 1 anterolisthesis with mild to moderate central canal stenosis. Impingement of traversin g L5 nerve roots bilaterally. This appears slightly progressed compared to previous. Small LEFT isidro inal protrusion with mild LEFT foraminal narrowing. RIGHT foramen is patent. Moderate facet arthropat hy. L5-S1: Mild annular bulging. Slight contact of the RIGHT S1 nerve root. Mild RIGHT foraminal narrowin g. Spinal canal is patent. Moderate facet arthropathy. Visualized pelvic bony structures: Normal. Paravertebral soft tissues: Normal. MR/MR lumbar spine wo con* [id number] IMPRESSION: 1. No acute compression fractures in the lumbar spine. 2. Chronic compression L1 vertebral body with kyphoplasty changes. 3. Grade 1 anterolisthesis L4 on L5 with mild central canal stenosis is simila r to previous. Impingement on the traversing L5 nerve roots bilaterally. 4. LEFT foraminal protrusion L4-5 impinges the exiting LEFT L4 nerve root. Mil d LEFT foraminal narrowing. 5. No other significant changes compared to previous.
--- NOTE | 2024-06-30 13:00 | MR_ITS ---
WS: [id number] MRI THORACIC SPINE WITHOUT CONTRAST TECHNIQUE: Sagittal T1, T2 and STIR imaging. Axial T2 imaging. Noncontrast imaging obtained. CLINICAL INFORMATION: compression fx COMPARISON: MRI 05/02/2023 FINDINGS: Mild thoracic curve. Mild thoracic kyphosis. Chronic compression fractures with kyphoplasty changes a t T4, T5, T7, T10, T11, and L1. Chronic compression T6. T10 kyphoplasty is new from previous. T11 kyp hoplasty is new from previous with anterior wedging. Kyphosis in the upper thoracic spine. Acute compression T8 vertebral body with mild compression of the superior endplate and diffuse edema compatible with acute compression. Loss of approximate 20% vertebral body height. Minimal retropulsio n of the posterior cortex with mild central canal stenosis Cord signal appears normal. Large esophageal canal hernia. Normal caliber thoracic aorta. Moderate fa cet arthropathy lower thoracic spine. . MR/MR thoracic spin wo con* [id number] IMPRESSION: 1. New acute compression fracture T8 vertebral body with mild compression of t he superior endplate and diffuse edema 2. Minimal retropulsion with mild central canal stenosis. 3. Loss of approximately 20 percent vertebral body height. 4. Large esophageal hiatal hernia.
== END 2024-06-30 12:39 | disposition home or self-care (01) ==
PROVIDERS: PCP Family Medicine; Visit Provider Orthopaedic Surgery
DX: S22.040A Wedge compression fracture of fourth thoracic vertebra, initial encounter for closed fracture (principal); S22.050A Wedge compression fracture of T5-T6 vertebra, initial encounter for closed fracture; S22.060A Wedge compression fracture of T7-T8 vertebra, initial encounter for closed fracture; S22.070A Wedge compression fracture of T9-T10 vertebra, initial encounter for closed fracture; S22.080A Wedge compression fracture of T11-T12 vertebra, initial encounter for closed fracture; S32.010A Wedge compression fracture of first lumbar vertebra, initial encounter for closed fracture; M40.204 Unspecified kyphosis, thoracic region; K44.9 Diaphragmatic hernia without obstruction or gangrene; M46.94 Unspecified inflammatory spondylopathy, thoracic region; Z98.890 Other specified postprocedural states; M43.16 Spondylolisthesis, lumbar region; M54.16 Radiculopathy, lumbar region; M51.26 Other intervertebral disc displacement, lumbar region; X58.XXXA Exposure to other specified factors, initial encounter
CPT/HCPCS: 72146; 72148

== ENCOUNTER → 2024-07-01 08:45 | Outpatient (BNVA) | payer MEDICARE, OTHER, SELFPAY | PROVIDERS: PCP Family Medicine; Visit Provider Orthopaedic Surgery | DX: Z01.818 Encounter for other preprocedural examination (principal); S22.060A Wedge compression fracture of T7-T8 vertebra, initial encounter for closed fracture; X58.XXXA Exposure to other specified factors, initial encounter; M54.9 Dorsalgia, unspecified | CPT/HCPCS: 36415; 80053; 81001; 85025; 99214 ==

== ENCOUNTER 2024-07-05 07:07 | Day surgery (SDC) | payer MEDICARE, OTHER, SELFPAY ==
[2024-07-05] VITALS (13 sets, daily range): BP systolic 89–116; BP diastolic 55–74; PULSE 72–112; RESP 14–24; TEMP 36.1–36.7; O2SAT 93–100; BMI 21.0
--- NOTE | 2024-07-05 08:03 | W.PM.OPSUD ---
Surgery/Procedure H&P Update DATE OF PROCEDURE: July 05, 2024 DATE H&P PERFORMED: 06/24/24 H&P UPDATE INFORMATION: I have reviewed H&P completed within last 30 days, I have examined patient prior to procedure and No changes to prior documentation PREOP DIAGNOSIS: T8 osteoporotic wedge compression fracture PLANNED PROCEDURE: Operation Date: 07/05/24 08:55 Proposed Procedures p Kyphoplasty(Not Applicable) - Cornell Balbuena DO
[2024-07-05] MEDS: sodium chloride 0.9% 1,000 ML 30 ML IV (08:10)
[2024-07-05] MEDS: ceFAZolin 2,000 mg SDV 2000 MG IVP (08:28)
[2024-07-05] MEDS: lidocaine-epi 1% 20 mL INJ INJECTION (08:54)
[2024-07-05] MEDS: iohexol 300 mg/mL 50 mL Btl (OR ONLY) XX (08:57)
--- NOTE | 2024-07-05 09:01 | ANES.PREANE2 ---
Pre-Anesthetic Assessment Height/Weight: Height 5 ft 2 in Weight 115 lb Temp Pulse Resp BP Pulse Ox O2 Del Method O2 Flow Rate 97.4 F L 76 18 116/73 100 Room Air 2 07/05/24 07:35 07/05/24 07:35 07/05/24 07:35 07/05/24 07:35 07/05/24 07:35 07/05/24 07:52 07/05/24 07:35 Preop Diagnosis: T8 osteoporotic wedge compression fracture Operation Date: 07/05/24 08:55 Proposed Procedures p Kyphoplasty(Not Applicable) - Cornell Balbuena, DO Was Beta Waldo taken within 24 hours: Yes Was Clonidine taken within 24 hours: N/A Last intake: Intake Last Liquid Date 07/04/24 Last Liquid Time 21:00 Last Solid Date 07/04/24 Last Solid Time 20:00 Social No alcohol and No tobacco Exam alert, oriented x 3 and regular rate & rhythm Airway Submandibular: within normal limits Cervical ROM: within normal limits Mallampati: Class II Dentition: full Comments: Comments: few missing teeth Anesthetic Plan ASA status: 3 Anesthesia: General Other: No prior issues with anesthesia NPO since yesterday History of hypertension on metoprolol Prior CAD with CABG and stent x 4. Most recent stent placement 4 years ago. On chronic Plavix. Taken 5 days ago Patient uses 2 L O2 at baseline Labs 07/01/2024 reviewed and acceptable for procedure Plan for GETA Medications/Allergies Home Medications Medication Instructions Recorded Confirmed Last Taken Type aspirin 81 mg tablet,delayed 81 mg PO DAILY 03/05/22 07/01/24 06/29/24 History release (Adult Aspirin Regimen) formoterol fumarate 20 mcg/2 mL 2 ml inhalation BID 04/25/22 07/01/24 07/01/24 History solution for nebulization revefenacin 175 mcg/3 mL solution 175 mcg inhalation DAILY 04/25/22 07/01/24 07/01/24 History for nebulization (Yupelri) budesonide 0.5 mg/2 mL suspension 0.5 mg (2 mL) inhalation BID #60 mL 07/21/23 07/01/24 07/01/24 Rx for nebulization albuterol sulfate 90 mcg/actuation 2 puff inhalation Q6H PRN 12/09/23 07/05/24 07/04/24 Rx aerosol inhaler shortness of breath or wheezing #8.5 grams clopidogrel 75 mg tablet (Plavix) 75 mg PO DAILY #90 tabs 12/09/23 07/01/24 06/28/24 Rx gabapentin 100 mg capsule 100 mg PO TID #270 caps 12/09/23 07/05/24 06/29/24 Rx metoprolol tartrate 50 mg tablet 50 mg PO BID #180 tabs 12/09/23 07/01/24 07/05/24 Rx (Lopressor) cefdinir 300 mg capsule 300 mg PO BID #14 caps 06/24/24 07/01/24 07/01/24 Rx hydrocodone 5 mg-acetaminophen 325 1 tab PO Q6H PRN pain #20 tabs 06/24/24 07/01/24 07/01/24 Rx mg tablet ipratropium 0.5 mg-albuterol 3 mg 3 ml inhalation Q4H PRN shortness 06/24/24 07/01/24 07/04/24 Rx (2.5 mg base)/3 mL nebulization of breath or wheezing #90 mL soln Allergies Allergy/AdvReac Type Severity Reaction Status Date / Time metronidazole [From Flagyl] Allergy ALGY-Hives Verified 06/29/24 19:30 Current Medications Generic Name Dose Route Start Last Admin Trade Name Freq PRN Reason Stop Dose Admin Sodium Chloride 1,000 mls @ 30 mls/hr 07/05/24 07:30 07/05/24 08:10 Sodium Chloride 0.9% IV 07/06/24 07:29 30 mls/hr .Q24H CARLOS Administration PFSH Anesthesia Medical History COPD (chronic obstructive pulmonary disease) Osteoporosis Surgical History Status post double vessel coronary artery bypass H/O heart artery stent H/O kyphoplasty Social History Smoking and tobacco/nicotine status: unknown if used tobacco/nicotine Quit status (tobacco/nicotine): has quit using Year quit tobacco: Apr 2022 Former quit date comment: 1ppd x 30years Second hand smoke exposure: Yes Alcohol intake: never Substance/Drug Use: never Adopted: No Caregiver/support person: Yes Lives independently: No Household members: spouse Housing: House Marital status: Number of children: 4 Number of grandchildren: 12 Highest education level completed: 10th Grade service: No Current occupational status: retired and disabled Current occupational exposures/hazards: No Pets and animals: No Sexually active: Yes Do you think of yourself as: Straight/Heterosexual Current gender identity: Female Special annika needs: No Agree to transfusion: Yes Female Reproductive History Spontaneous abortions: No Data Anesthesia Cardiac Studies: Echocardiogram 03/10/23 Sestamibi Stress Test (Cardiology) 10/07/23
--- NOTE | 2024-07-05 09:26 | XR_ITS ---
WS: [id number] C-ARM RADIOGRAPHS LUMBAR SPINE; 4 IMAGES HISTORY: OR PICS COMPARISON: None available. Several pictures of the lumbar spine have been submitted. Kyphoplasties at several levels. The levels cannot be determined on the imaging submitted. XR/XR lumbar spine 2-3V* [id number] IMPRESSION: Intraoperative imaging during kyphoplasty.
--- NOTE | 2024-07-05 09:34 | PM.OP ---
Operative Report Date of procedure: July 05, 2024 Pre-op diagnosis: T 8 osteoporotic wedge traumatic compression fracture Post-op diagnosis: same Procedure done: T8 kyphoplasty Surgeon: Cornell Balbuena DO Estimated blood loss (mL): 5 Procedure: T8 kyphoplasty Patient is brought to the operative suite after undergoing anesthesia was placed in the prone position. All his impingement well-padded. Biplanar fluoroscopy was brought into identify the level. Skin is was made lateral to the left pedicle. The awl was inserted. Followed by the balloon. Followed by the cement. The cement leaked out anteriorly and laterally however we did end up getting the vertebral body filled with cement. At this point AP lateral fluoroscopy ensured that the vertebrae had cement in appropriate places. Wounds irrigated closed with nylon suture sterile dressings applied patient transferred the PACU in stable condition.
--- NOTE | 2024-07-05 10:32 | SUR.PHASEII ---
INDIRECT WARM AIR APPLIED TO PT.
[2024-07-05] MEDS: HYDROcodone-acetaminophen 10-325 mg Tablet 1 TAB PO (10:44)
--- NOTE | 2024-07-05 11:00 | SUR.PHASEII ---
10:44 MEDICATED FOR BACK PAIN. ROM AND SENSATION ALL FOUR EXTREMITIES.
--- NOTE | 2024-07-05 12:10 | ANE.PACU2 ---
Inpatient post-anesthesia follow up: Airway intact: Yes Vital signs: Temperature 98.0 F Pulse Rate 84 Respiratory Rate 18 Blood Pressure 105/72 Pulse Oximetry 96 Oxygen Delivery Me thod Nasal Cannula Oxygen Flow Rate 2 Fraction of Inspir ed Oxygen Hydration adequate: Yes Nausea and vomiting: No Pain level: 2 Mental status: Baseline
== END 2024-07-05 12:10 | disposition home or self-care (01) ==
PROVIDERS: PCP Family Medicine; Visit Provider Orthopaedic Surgery
PROC: (CPT 22513; principal; 2024-07-05 08:35)
DX: S22.060A Wedge compression fracture of T7-T8 vertebra, initial encounter for closed fracture (principal); X58.XXXA Exposure to other specified factors, initial encounter; I25.10 Atherosclerotic heart disease of native coronary artery without angina pectoris; I10 Essential (primary) hypertension; Z95.1 Presence of aortocoronary bypass graft; Z95.5 Presence of coronary angioplasty implant and graft; Z79.02 Long term (current) use of antithrombotics/antiplatelets; Z99.81 Dependence on supplemental oxygen; Z79.82 Long term (current) use of aspirin; J44.9 Chronic obstructive pulmonary disease, unspecified; M81.0 Age-related osteoporosis without current pathological fracture; Z87.891 Personal history of nicotine dependence
CPT/HCPCS: 22513; 72100; 76000; J0690; J2250; J2704; J2710; J3010; J7030

== ENCOUNTER → 2024-07-22 08:40 | Outpatient (BNVA) | payer MEDICARE, OTHER, SELFPAY | PROVIDERS: PCP Family Medicine; Visit Provider Orthopaedic Surgery | DX: Z48.89 Encounter for other specified surgical aftercare (principal) | CPT/HCPCS: 99024 ==

== ENCOUNTER 2024-07-30 09:04 | Emergency (ER) | payer MEDICARE, OTHER, SELFPAY ==
--- NOTE | 2024-07-30 09:07 | ECG_ITS ---
[facility] Test Date: 2024-07-30 Pat Name: Patricia Tse Department: Room: Gender: Female Supervisor Fusing Room: : 1960 Requested By: Duarte Amaro Order Number: [id number] Dede MD: EMILY JOHNSON Measurements Intervals [place] Rate: 131 P: 22 SD: 158 QRS: 68 QRSD: 90 T: 62 QT: 333 QTc: 492 Interpretive Statements SINUS TACHYCARDIA LOW QRS VOLTAGE IN PRECORDIAL LEADS [QRS DEFLECTION < 1.0 mV IN CHEST LEADS] NONSPECIFIC T-WAVE ABNORMALITY ABNORMAL RHYTHM ECG Compared to ECG 06/29/2024 19:56:02 Low QRS voltage now present T-wave abnormality now present Sinus rhythm no longer present Electronically Signed On 07-30-2024 23:22:05 [employer] by EMILY JOHNSON [email or web address]
[2024-07-30 09:10] VITALS: BP 96/67; PULSE 130; RESP 24; TEMP 36.8; O2SAT 99; BMI 21.0
--- NOTE | 2024-07-30 09:13 | XR_ITS ---
WS: [id number] XR chest 1V [id number] REASON FOR EXAM: dyspnea FINDINGS: Chest is stable compared to 06/24/2024. Sternal sutures. Moderate tortuosity of the thoracic aorta. Normal heart size. Calcified coronary artery stents versus vein bypass. Presumed hiatal hernia. Calcified granulomatous disease in both hemithoraces. Chronic reticular interstitial opacities with h yperexpansion and flattening of the hemidiaphragms indicative of obstructive lung disease. No acute pulmonary parenchymal or pleural abnormality. XR/XR chest 1V [id number] IMPRESSION: Stable abnormal chest as above without acute abnormality.
--- NOTE | 2024-07-30 10:00 | ED_ITS ---
HPI - SOB/Dyspnea 2 General: Chief Complaint: Shortness of Breath/Dyspnea Stated Complaint: sob Time Seen by Provider: 07/30/24 09:13 History of Present Illness: HPI Narrative: Chief plaint shortness of breath. The patient presents stating that yesterday she started developing increased cough shortness of breath and scratchy throat. No swelling of her throat. No itching or rash or new medication exposure where she suspects allergic reaction. She states that she has history of COPD and has had similar flareups multiple times in the past. She denies having any chest pain or chest discomfort. No pleurisy. No recent mobility or leg pain or swelling. No hemoptysis. She is not on hormone therapy or control. She has a history of heart disease with bypass surgery and has some chronic swelling in her left leg from that surgery but no new swelling. Denies history of congestive heart failure. She states that she thinks she caught something from her grandson has been sick with cough and congestion and she has developed congestion cough and scratchy throat and some generalized weakness and fatigue and increased shortness of breath which prompted her to come in. Related Data Home Medications Medication Instructions Recorded Confirmed aspirin 81 mg tablet,delayed 81 mg PO DAILY 03/05/22 07/30/24 release (Adult Aspirin Regimen) revefenacin 175 mcg/3 mL solution 175 mcg inhalation BEDTIME 04/25/22 07/30/24 for nebulization (Yulavellei) ascorbic acid (vitamin C) 500 mg 500 mg PO BID 07/30/24 07/30/24 tablet (Vitamin C) ferrous sulfate 325 mg (65 mg 325 mg PO BID 07/30/24 07/30/24 iron) tablet (iron) Previous Rx's Medication Instructions Recorded budesonide 0.5 mg/2 mL suspension 0.5 mg (2 mL) inhalation BID #60 mL 07/21/23 for nebulization gabapentin 100 mg capsule 100 mg PO TID #270 caps 12/09/23 albuterol sulfate 90 mcg/actuation 2 puff inhalation Q6H PRN 07/21/24 aerosol inhaler shortness of breath or wheezing #8.5 grams buspirone 10 mg tablet 10 mg PO TID PRN Panic attack #90 07/21/24 tabs clopidogrel 75 mg tablet (Plavix) 75 mg PO DAILY #90 tabs 07/21/24 lorazepam 0.5 mg tablet 0.5 mg PO DAILY PRN anxiety 07/21/24 attacks #15 tabs metoprolol tartrate 50 mg tablet 50 mg PO BID #180 tabs 07/21/24 (Lopressor) azithromycin 250 mg tablet See Rx Instructions PO .COMPLEX #6 07/30/24 (Zithromax Z-Shane) tabs prednisone 20 mg tablet 20 mg PO BID 5 days #10 tabs 07/30/24 Allergies Allergy/AdvReac Type Severity Reaction Status Date / Time metronidazole [From Flagyl] Allergy ALGY-Hives Verified 07/21/24 10:45 PFSH ED 2 PFSH: Medical History COPD (chronic obstructive pulmonary disease) Osteoporosis Surgical History Status post double vessel coronary artery bypass H/O heart artery stent H/O kyphoplasty Social History Smoking and tobacco/nicotine status: former use of tobacco/nicotine Quit status (tobacco/nicotine): has quit using Year quit tobacco: Apr 2022 Former quit date comment: 1ppd x 30years Second hand smoke exposure: Yes Alcohol intake: never Substance/Drug Use: never Adopted: No Caregiver/support person: Yes Lives independently: No Household members: spouse Housing: House Marital status: Number of children: 4 Number of grandchildren: 12 Highest education level completed: 10th Grade service: No Current occupational status: retired and disabled Current occupational exposures/hazards: No Pets and animals: No Sexually active: Yes Do you think of yourself as: Straight/Heterosexual Current gender identity: Female Special annika needs: No Agree to transfusion: Yes Female Reproductive History: Spontaneous abortions: No Physical Exam 2 Narrative: EXAM NARRATIVE: Patient has mild to moderate distress. She has tachypnea. She has to take a break when she is talking to me. She will speak in full sentences but then have to take a break to catch her breath. She has some accessory muscle use and retractions. She has diminished breath sounds bilaterally with prolonged expiratory phase and bilateral expiratory wheezing. Her abdomen soft nontender. She has no calf tenderness. Trace edema both legs. Her speech is clear. Oropharynx and posterior pharynx are clear without exudates or erythema. Her neck is supple. Heart regular rhythm with tachycardia. No murmurs on auscultation. No JVD. She moves freely in the bed moves her back freely. No signs of trauma to her head she is normocephalic with moist mucous membranes. Alert and oriented with intact judgment. Moves arms and legs freely. Course 2 Vital Signs: Vital signs: Vital Signs Temperature 98.2 F 07/30/24 09:10 Pulse Rate 113 H 07/30/24 12:51 Respiratory Rate 20 H 07/30/24 10:57 Blood Pressure 102/62 07/30/24 12:51 Pulse Oximetry 97 07/30/24 12:51 Oxygen Delivery Me thod Nasal Cannula 07/30/24 12:23 Oxygen Flow Rate 5 07/30/24 12:23 MDM - SOB/Dyspnea Medical Decision Making Patient presents to the emergency department with complaint of increased shortness of breath and suspects that she caught a virus from a family member. She states she has increased cough congestion scratchy throat some malaise and fatigue and increased shortness of breath and coughing up sputum which started yesterday after exposure to the family member. She states that they had some virus but she does not know what. She states she is not had a fever that she is aware of. No chest pain or chest discomfort to suggest PE or acute TX. She does have a history of cardiac disease but denies any chest discomfort. She states this is the same as prior COPD exacerbations. The patient is markedly tachycardic however in consideration for PE or cardiac dysrhythmia among others. Will obtain EKG, chest x-ray, CBC CMP proBNP and D-dimer. I ordered DuoNeb and albuterol 2.5 mg nebulized and Decadron 10 mg IV after informed discussion with the patient. Viral bronchitis with COPD exacerbation is the most probable cause of her symptoms. With her tachycardia however PE is certainly considered. Chest x-ray did not show evident infiltrate to my interpretation formal interpretation pending. Patient EKG to my interpretation shows sinus tachycardia with a rate of [address] segment changes and low QRS voltage and motion artifact. COVID influenza A influenza B and RSV were negative. proBNP not significantly elevated. Patient white count is normal. Hemoglobin improved from prior. Patient states she is feeling much better after the breathing treatments and steroids. Her D-dimer was not significant elevated. She is asking for discharge home. She is on 2 L nasal cannula oxygen at baseline at home. Her sats are in the mid 90s on 2 L here. She states she has her breathing medications at home. Will prescribe azithromycin for atypical coverage and prednisone and discharged home in improved condition. Chest x-ray negative per radiology for acute process. Patient appears much improved. Not in any respiratory distress at this time. No retractions or accessory muscle use. Lab Data 07/30/24 10:35 07/30/24 10:35 Labs/Radiology: Radiology Impressions Chest X-Ray 07/30/24 09:13 IMPRESSION: Stable abnormal chest as above without acute abnormality. Laboratory Results WBC 6.92 10^3/uL (3.29-11.43) 07/30/24 10:35 RBC 4.03 10^6/uL (3.85-5.65) 07/30/24 10:35 Hgb 10.00 g/dL (11.27-16.99) L 07/30/24 10:35 Hct 33.7 % (36-47) L 07/30/24 10:35 MCV 83.6 fl (85-98) L 07/30/24 10:35 MCH 24.8 pg (27-33) L 07/30/24 10:35 MCHC 29.7 g/dL (30-55) L 07/30/24 10:35 RDW 19.5 % (12.1-15.1) H 07/30/24 10:35 Plt Count 300 10^3/cmm (157-399) 07/30/24 10:35 MPV 8.5 fL (7.4-10.4) 07/30/24 10:35 Neut % (Auto) 73.7 % 07/30/24 10:35 Lymph % (Auto) 13.4 % 07/30/24 10:35 [place] % (Auto) 12.4 % 07/30/24 10:35 Eos % (Auto) 0.0 % 07/30/24 10:35 Baso % (Auto) 0.4 % 07/30/24 10:35 Neut # (Auto) 5.09 10^3/uL (1.8-7.7) 07/30/24 10:35 Lymph # (Auto) 0.9 10^3/uL (0.8-4.8) 07/30/24 10:35 [place] # (Auto) 0.9 10^3/uL (0.2-0.9) 07/30/24 10:35 Eos # (Auto) 0.0 10^3/uL (0.0-0.8) 07/30/24 10:35 Baso # (Auto) 0.0 10^3/uL (0.0-0.1) 07/30/24 10:35 Nucleated RBC % (auto) 0 % 07/30/24 10:35 Nucleated RBCs # 0.0 /100WBC 07/30/24 10:35 D-Dimer 0.51 ug/mLFEU (0-0.59) 07/30/24 10:35 Sodium 136 mmol/L (136-145) 07/30/24 10:35 Potassium 4.0 mmol/L (3.5-5.1) 07/30/24 10:35 Chloride 94 mmol/L (98-107) L 07/30/24 10:35 Carbon Dioxide 31 mmol/L (22-29) H 07/30/24 10:35 Anion Gap 15.0 (5-19) 07/30/24 10:35 BUN 11 mg/dL (8-23) 07/30/24 10:35 Creatinine 0.6 mg/dL (0.5-0.9) 07/30/24 10:35 GFR Calculation 100.0 mL/min (90-130) 07/30/24 10:35 Glucose 127 mg/dL (65-115) H 07/30/24 10:35 Calculated Osmolality 283 mOsm/kg (285-295) L 07/30/24 10:35 Calcium 9.6 mg/dL (8.5-10.5) 07/30/24 10:35 Total Bilirubin 0.3 mg/dL (0.15-1.2) 07/30/24 10:35 AST 14 U/L (0-32) 07/30/24 10:35 ALT 9 U/L (0-33) 07/30/24 10:35 Alkaline Phosphatase 151 U/L (35-105) H 07/30/24 10:35 NT-Pro-B Natriuret Pep 136 pg/mL (0-125) H 07/30/24 10:35 Total Protein 7.7 g/dL (6.6-8.7) 07/30/24 10:35 Albumin 4.4 g/dL (3.5-5.2) 07/30/24 10:35 Globulin 3.3 g/dL (1.3-4.6) 07/30/24 10:35 Coronavirus (PCR) Negative (Negative) 07/30/24 10:31 Influenza A (PCR) Negative (Negative) 07/30/24 10:31 Influenza Type B (PCR) Negative (Negative) 07/30/24 10:31 RSV (PCR) Negative (Negative) 07/30/24 10:31 All radiology interpretation(s) finalized by discharge Discharge Plan Discharge Patient Disposition: Home Clinical Impression: Chronic respiratory failure with hypoxia, on home oxygen therapy, COPD exacerbation Condition: Stable Prescriptions: New prednisone 20 mg tablet 20 mg PO BID 5 Days Qty: 10 0RF azithromycin [Zithromax Z-Shane] 250 mg tablet See Rx Instructions .ROUTE .COMPLEX Qty: 6 0RF Rx Instructions: For 250 mg dose pack: take 500 mg today (day 1), then 250 mg for 4 days (days 2-5) No Action aspirin [Adult Aspirin Regimen] 81 mg tablet,delayed release (DR/EC) 81 mg PO DAILY Hold Instructions: Resume on 07/06/24. Yupelri 175 mcg/3 mL solution for nebulization 175 mcg inhalation BEDTIME budesonide 0.5 mg/2 mL suspension for nebulization 0.5 mg inhalation BID Qty: 60 5RF albuterol sulfate 90 mcg/actuation HFA aerosol inhaler 2 puff inhalation Q6H PRN (Reason: shortness of breath or wheezing) Qty: 8.5 11RF buspirone 10 mg tablet 10 mg PO TID PRN (Reason: Panic attack) Qty: 90 0RF clopidogrel [Plavix] 75 mg tablet 75 mg PO DAILY Qty: 90 3RF Hold Instructions: Resume on 07/06/24. metoprolol tartrate [Lopressor] 50 mg tablet 50 mg PO BID Qty: 180 3RF lorazepam 0.5 mg tablet 0.5 mg PO DAILY PRN (Reason: anxiety attacks) Qty: 15 5RF gabapentin 100 mg capsule 100 mg PO TID Qty: 270 1RF ascorbic acid (vitamin C) [Vitamin C] 500 mg Tablet 500 mg PO BID ferrous sulfate [iron] 325 mg (65 mg iron) Tablet 325 mg PO BID Discharge Orders: Discharge ED (Routine); Ordered 07/30/24 Ordered By: Duarte Amaro Referrals: Nikko Berry DO [Primary Care Provider] - Activity Restrictions/Additional Instructions: Use your breathing treatments as prescribed. Come back if worsening shortness of breath, getting worse instead of better, any concerns. Please follow-up on your test results with your doctor. Follow-up next week with your doctor. Coding Level of Care Code ED Ovens Supervisor for Wing Bergeron
[2024-07-30 10:40] LABS: Basophils % 0.4 %; Hematocrit 33.7 % (36-47); Lymphocytes # 0.9 10^3/uL (0.8-4.8); Lymphocytes % 13.4 %; Mean Corpuscular HGB Conc 29.7 g/dL (30-55); Mean Corpuscular Hemoglobin 24.8 pg (27-33); Mean Corpuscular Volume 83.6 fl (85-98); Mean Platelet Volume 8.5 fL (7.4-10.4); Monocytes # 0.9 10^3/uL (0.2-0.9); Monocytes % 12.4 %; Neutrophils # 5.09 10^3/uL (1.8-7.7); Neutrophils % 73.7 %; Nucleated Red Blood Cells % 0 %; Platelet Count 300 10^3/cmm (157-399); Red Blood Count 4.03 10^6/uL (3.85-5.65); Red Cell Distribution Width 19.5 % (12.1-15.1); White Blood Count 6.92 10^3/uL (3.29-11.43)
[2024-07-30] MEDS: dexamethasone 10 mg/mL INJ IVP (10:40)
[2024-07-30] MEDS: ondansetron 2 mg/ML SDV 2 mL 4 MG IVP (10:47)
[2024-07-30 10:48] VITALS: BP 149/73; PULSE 96; O2SAT 96
[2024-07-30 10:57] VITALS: PULSE 104; RESP 20; O2SAT 96
[2024-07-30 10:57] LABS: D Dimer 0.51 ug/mLFEU (0-0.59)
[2024-07-30] MEDS: albuterol 2.5 mg/3 mL Neb INHALATION (10:57)
[2024-07-30] MEDS: ipratropium-albuterol 3 mL Neb INHALATION (10:57)
[2024-07-30 11:05] VITALS: PULSE 111
[2024-07-30 11:09] LABS: Alanine Aminotransferase 9 U/L (0-33); Albumin Level 4.4 g/dL (3.5-5.2); Alkaline Phosphatase 151 U/L (35-105); Aspartate Amino Transferase 14 U/L (0-32); Blood Urea Nitrogen 11 mg/dL (8-23); Calcium 9.6 mg/dL (8.5-10.5); Carbon Dioxide 31 mmol/L (22-29); Chloride 94 mmol/L (98-107); Globulin 3.3 g/dL (1.3-4.6); Glucose 127 mg/dL (65-115); NT Pro B Type Natriuretic Pept 136 pg/mL (0-125); Osmolality Calculated 283 mOsm/kg (285-295); Sodium 136 mmol/L (136-145); Total Bilirubin 0.3 mg/dL (0.15-1.2); Total Protein 7.7 g/dL (6.6-8.7)
[2024-07-30 11:31] LABS: Covid PCR NEGATIVE (Negative); Influenza A NEGATIVE (Negative); Influenza B NEGATIVE (Negative); Respiratory Syncytial Virus Ce NEGATIVE (Negative)
[2024-07-30 12:23] VITALS: BP 115/61; PULSE 92; O2SAT 91
[2024-07-30 12:51] VITALS: BP 102/62; PULSE 113; O2SAT 97
== END 2024-07-30 12:54 | disposition home or self-care (01) ==
PROVIDERS: Emergency Provider Emergency Medicine; PCP Family Medicine
DX: J96.11 Chronic respiratory failure with hypoxia (principal); J44.1 Chronic obstructive pulmonary disease with (acute) exacerbation; Z99.81 Dependence on supplemental oxygen; Z11.52 Encounter for screening for COVID-19; Z87.891 Personal history of nicotine dependence
CPT/HCPCS: 12345; 71045; 80053; 83880; 85025; 85378; 87637; 93005; 94640; 96374; 96375; 99285; J1100; J2405; J7613

== ENCOUNTER 2024-08-07 13:27 | Inpatient (IN) | payer MEDICARE, SELFPAY ==
[2024-08-07] VITALS (57 sets, daily range): BP systolic 106–152; BP diastolic 65–90; PULSE 76–154; RESP 14–40; TEMP 36.3–36.9; O2SAT 85–100; BMI 20.6
--- NOTE | 2024-08-07 13:53 | ECG_ITS ---
[employer] [facility] Test Date: 2024-08-07 Pat Name: Patricia Tse Department: Room: Gender: Female Crude Unit Operator: : 1960 Requested By: Brijesh Peck Order Number: [id number] Dede MD: Garry Georges M.D. Measurements Intervals [place] Rate: 144 P: 51 NV: 131 QRS: 66 QRSD: 90 T: 36 QT: 295 QTc: 457 Interpretive Statements SINUS TACHYCARDIA WITH OCCASIONAL VENTRICULAR PREMATURE COMPLEXES, POSSIBLE ATRIAL FLUTTER Compared to ECG 07/30/2024 09:07:08 T-wave abnormality no longer present Electronically Signed On 08-07-2024 22:58:46 MEN'S LOCKER ROOM ATTENDANT by Garry Georges M.D. [email or web address]
--- NOTE | 2024-08-07 14:01 | XRR_ITS ---
PROCEDURE INFORMATION: Exam: XR Chest Exam date and time: 08/07/2024 2:22 PM Age: 64 years old Clinical indication: Prior surgery; Surgery date: 6+ months; Surgery type: Cabg; Patient HX: Tachycardia; Tachypnea; Copd TECHNIQUE: Imaging protocol: Radiologic exam of the chest. Views: 1 view. COMPARISON: CR XR chest 1V [id number] 07/30/2024 9:18 AM FINDINGS: Lungs: Lung volumes are large. There is no consolidation. Multiple calcified granulomas in the central right lung. Upper lungs are hyperlucent. Pleural spaces: There is no pleural effusion or pneumothorax. Heart/Mediastinum: Heart size is normal. Bones/joints: Sternal wires are present. There is no displacement to suggest sternal dehiscence. Multilevel thoracic vertebroplasty noted. No acute osseous findings. XR/XR chest 1V portable [id number] IMPRESSION: 1. No acute findings. 2. Emphysema. 3. Incidental findings above.
--- NOTE | 2024-08-07 14:08 | W.ED.SOB ---
HPI - SOB/Dyspnea General: Chief Complaint: Shortness of Breath/Dyspnea Stated Complaint: sob Time Seen by Provider: 08/07/24 13:55 History of Present Illness: HPI Narrative: Patient is a 64-year-old female with past medical history of CABG, COPD presenting from home for worsening shortness of breath. She notes she has been sick for about a week with cough, congestion, increased sputum production, vomiting, diarrhea, did have a sick exposure to a friend about 10 days ago. She was seen in the ED on 07/30 and was thought to have COPD exacerbation, was flu COVID RSV negative at that time, discharged home with azithromycin and prednisone. Denies chest pain, abdominal pain. She did take her medications this morning. Associated symptoms: Reports chest pain; Deny abdominal pain, fever(s) or vomiting Related Data Home Medications Medication Instructions Recorded Confirmed aspirin 81 mg tablet,delayed 81 mg PO DAILY 03/05/22 08/07/24 release (Adult Aspirin Regimen) revefenacin 175 mcg/3 mL solution 175 mcg inhalation BEDTIME 04/25/22 08/07/24 for nebulization (Yulavellei) ascorbic acid (vitamin C) 500 mg 500 mg PO BID 07/30/24 08/07/24 tablet (Vitamin C) ferrous sulfate 325 mg (65 mg 325 mg PO BID 07/30/24 08/07/24 iron) tablet (iron) gabapentin 100 mg capsule 100 mg PO TID PRN nerve pain 08/07/24 08/07/24 hydrocodone 5 mg-acetaminophen 325 1 - 2 tab PO .Q4-6H PRN Pain 08/07/24 08/07/24 mg tablet ipratropium 0.5 mg-albuterol 3 mg 3 ml inhalation Q4H PRN Shortness 08/07/24 08/07/24 (2.5 mg base)/3 mL nebulization Of Breath Or Wheezing soln Previous Rx's Medication Instructions Recorded budesonide 0.5 mg/2 mL suspension 0.5 mg (2 mL) inhalation BID #60 mL 07/21/23 for nebulization albuterol sulfate 90 mcg/actuation 2 puff inhalation Q6H PRN 07/21/24 aerosol inhaler shortness of breath or wheezing #8.5 grams buspirone 10 mg tablet 10 mg PO TID PRN Panic attack #90 07/21/24 tabs clopidogrel 75 mg tablet (Plavix) 75 mg PO DAILY #90 tabs 07/21/24 lorazepam 0.5 mg tablet 0.5 mg PO DAILY PRN anxiety 07/21/24 attacks #15 tabs metoprolol tartrate 50 mg tablet 50 mg PO BID #180 tabs 07/21/24 (Lopressor) Allergies Allergy/AdvReac Type Severity Reaction Status Date / Time metronidazole [From Flagyl] Allergy ALGY-Hives Verified 08/07/24 13:42 Review of Systems Const: Reports: malaise; Denies: fever(s) or chills Card: Reports: chest pain Resp: Reports: dyspnea and productive cough; Denies: wheezing GI: Denies: abdominal pain, vomiting or diarrhea PFSH ED PFSH: Medical History COPD (chronic obstructive pulmonary disease) Osteoporosis Surgical History Status post double vessel coronary artery bypass H/O heart artery stent H/O kyphoplasty Social History Smoking and tobacco/nicotine status: former use of tobacco/nicotine Quit status (tobacco/nicotine): has quit using Year quit tobacco: Apr 2022 Former quit date comment: 1ppd x 30years Second hand smoke exposure: Yes Alcohol intake: never Substance/Drug Use: never Adopted: No Caregiver/support person: Yes Lives independently: No Household members: spouse Housing: House Marital status: Number of children: 4 Number of grandchildren: 12 Highest education level completed: 10th Grade service: No Current occupational status: retired and disabled Current occupational exposures/hazards: No Pets and animals: No Sexually active: Yes Do you think of yourself as: Straight/Heterosexual Current gender identity: Female Special annika needs: No Agree to transfusion: Yes Female Reproductive History: Spontaneous abortions: No Physical Exam Const: COMMON NORMALS: patient oriented x3 GENERAL APPEARANCE: cooperative HENMT: COMMON NORMALS: normocephalic and atraumatic HEAD & SCALP: normocephalic and atraumatic Eye: COMMON NORMALS: Equal, round and reactive pupils present, EOMs intact bilaterally and conjunctivae normal CONJUNCTIVA: Yes conjunctivae normal PUPIL: Yes Equal, round and reactive pupils present Chest: COMMONS NORMALS: normal inspection of the chest and normal palpation of entire chest wall CHEST: Yes Symmetrical chest wall rise Resp: EFFORT & INSPECTION: Yes tachypneic and Yes respiratory distress AUSCULTATION: no crackles, no rales, no wheezes and diminished lung sounds Cardio: RATE: tachycardic HEART SOUNDS: no murmurs Neuro: COMMON NORMALS: patient oriented x3, moves all extremities and no focal motor deficits Course Vital Signs: Vital signs: Vital Signs Temperature 98.5 F 08/07/24 13:37 Pulse Rate 114 H 08/07/24 15:09 Respiratory Rate 16 08/07/24 14:51 Blood Pressure 148/76 08/07/24 13:57 Pulse Oximetry 95 08/07/24 15:09 Oxygen Delivery Me thod Nasal Cannula 08/07/24 14:51 Oxygen Flow Rate 4 08/07/24 14:51 Fraction of Inspir ed Oxygen 30 08/07/24 15:09 MDM - SOB/Dyspnea Medical Decision Making Patient is a 64-year-old female with past medical history of CABG, COPD presenting from home for shortness of breath and increased work of breathing. Recently seen in our ED on 07/30 for COPD exacerbation and prescribed azithromycin and prednisone at that time. Today she was found to be tachycardic to 150s and atrial flutter with 2:1 conduction. Was given diltiazem bolus and started on diltiazem drip with improvement in her heart rate. She was given Solu-Medrol 125 and 2 DuoNeb treatments. BNP, procalcitonin, TSH, and troponin were all normal. Patient found to have CO2 of 60 so started on BiPAP. Given Levaquin 500 mg to cover for pneumonia. Repeat VBG and COVID/flu/RSV pending. Discussed with the on-call hospitalist who agreed to admit the patient. Lab Data 08/07/24 13:55 08/07/24 13:55 Labs/Radiology: Radiology Impressions Chest X-Ray 08/07/24 14:01 IMPRESSION: 1. No acute findings. 2. Emphysema. 3. Incidental findings above. Laboratory Results WBC 10.75 10^3/uL (3.29-11.43) 08/07/24 13:55 RBC 4.06 10^6/uL (3.85-5.65) 08/07/24 13:55 Hgb 10.10 g/dL (11.27-16.99) L 08/07/24 13:55 Hct 33.8 % (36-47) L 08/07/24 13:55 MCV 83.3 fl (85-98) L 08/07/24 13:55 MCH 24.9 pg (27-33) L 08/07/24 13:55 MCHC 29.9 g/dL (30-55) L 08/07/24 13:55 RDW 18.9 % (12.1-15.1) H 08/07/24 13:55 Plt Count 344 10^3/cmm (157-399) 08/07/24 13:55 MPV 8.9 fL (7.4-10.4) 08/07/24 13:55 Neut % (Auto) 75.8 % 08/07/24 13:55 Lymph % (Auto) 15.0 % 08/07/24 13:55 [place] % (Auto) 8.1 % 08/07/24 13:55 Eos % (Auto) 0.7 % 08/07/24 13:55 Baso % (Auto) 0.1 % 08/07/24 13:55 Neut # (Auto) 8.16 10^3/uL (1.8-7.7) H 08/07/24 13:55 Lymph # (Auto) 1.6 10^3/uL (0.8-4.8) 08/07/24 13:55 [place] # (Auto) 0.9 10^3/uL (0.2-0.9) 08/07/24 13:55 Eos # (Auto) 0.1 10^3/uL (0.0-0.8) 08/07/24 13:55 Baso # (Auto) 0.0 10^3/uL (0.0-0.1) 08/07/24 13:55 Nucleated RBC % (auto) 0 % 08/07/24 13:55 Nucleated RBCs # 0.0 /100WBC 08/07/24 13:55 Specimen Type Venous 08/07/24 14:12 Sample Site Not specified 08/07/24 14:12 Jerson Test N/a 08/07/24 14:12 VBG pH 7.35 (7.32-7.42) 08/07/24 14:12 VBG pCO2 60.5 mmHg (41-51) H* 08/07/24 14:12 VBG pO2 72.4 mmHg (25-40) H 08/07/24 14:12 VBG HCO3 33.6 mmol/L (24-28) H 08/07/24 14:12 VBG Base Excess 6.8 mmol/L (-3.0-3.0) H 08/07/24 14:12 VBG Hematocrit 29.1 % (37-47) L 08/07/24 14:12 O2 Delivery Device None 08/07/24 14:12 Medical Leader ID Cak 08/07/24 14:12 Sodium 137 mmol/L (136-145) 08/07/24 13:55 Potassium 4.0 mmol/L (3.5-5.1) 08/07/24 13:55 Chloride 95 mmol/L (98-107) L 08/07/24 13:55 Carbon Dioxide 31 mmol/L (22-29) H 08/07/24 13:55 Anion Gap 15.0 (5-19) 08/07/24 13:55 BUN 13 mg/dL (8-23) 08/07/24 13:55 Creatinine 0.5 mg/dL (0.5-0.9) 08/07/24 13:55 GFR Calculation 123.4 mL/min (90-130) 08/07/24 13:55 Glucose 275 mg/dL (65-115) H 08/07/24 13:55 Calculated Osmolality 294 mOsm/kg (285-295) 08/07/24 13:55 Lactic Acid 1.5 mmol/L (0.5-2.2) 08/07/24 13:55 Calcium 9.1 mg/dL (8.5-10.5) 08/07/24 13:55 Magnesium 2.2 mg/dL (1.7-2.3) 08/07/24 13:55 Total Bilirubin 0.3 mg/dL (0.15-1.2) 08/07/24 13:55 AST 10 U/L (0-32) 08/07/24 13:55 ALT 7 U/L (0-33) 08/07/24 13:55 Alkaline Phosphatase 129 U/L (35-105) H 08/07/24 13:55 Troponin T Baseline 7 ng/L (0-10) 08/07/24 13:55 NT-Pro-B Natriuret Pep 96 pg/mL (0-125) 08/07/24 13:55 Total Protein 7.0 g/dL (6.6-8.7) 08/07/24 13:55 Albumin 3.8 g/dL (3.5-5.2) 08/07/24 13:55 Globulin 3.2 g/dL (1.3-4.6) 08/07/24 13:55 Procalcitonin 0.13 ng/mL (0-0.5) 08/07/24 13:55 TSH 0.46 uIU/mL (0.27-4.20) 08/07/24 13:55 Discharge Plan Discharge Prescriptions: No Action aspirin [Adult Aspirin Regimen] 81 mg tablet,delayed release (DR/EC) 81 mg PO DAILY Hold Instructions: Resume on 07/06/24. Yupelri 175 mcg/3 mL solution for nebulization 175 mcg inhalation BEDTIME budesonide 0.5 mg/2 mL suspension for nebulization 0.5 mg inhalation BID Qty: 60 5RF albuterol sulfate 90 mcg/actuation HFA aerosol inhaler 2 puff inhalation Q6H PRN (Reason: shortness of breath or wheezing) Qty: 8.5 11RF buspirone 10 mg tablet 10 mg PO TID PRN (Reason: Panic attack) Qty: 90 0RF clopidogrel [Plavix] 75 mg tablet 75 mg PO DAILY Qty: 90 3RF Hold Instructions: Resume on 07/06/24. metoprolol tartrate [Lopressor] 50 mg tablet 50 mg PO BID Qty: 180 3RF lorazepam 0.5 mg tablet 0.5 mg PO DAILY PRN (Reason: anxiety attacks) Qty: 15 5RF ascorbic acid (vitamin C) [Vitamin C] 500 mg Tablet 500 mg PO BID ferrous sulfate [iron] 325 mg (65 mg iron) Tablet 325 mg PO BID ipratropium-albuterol 0.5 mg-3 mg(2.5 mg base)/3 mL solution for nebulization 3 ml INHALATION Q4H PRN (Reason: Shortness Of Breath Or Wheezing) hydrocodone-acetaminophen 5-325 mg tablet 1 - 2 tab PO .Q4-6H PRN (Reason: Pain) gabapentin 100 mg capsule 100 mg PO TID PRN (Reason: nerve pain) Coding Level of Care Code ED Post Office Markup Clerk for Wing Bergeron
[2024-08-07] MEDS: dilTIAZem 5 mg/mL SDV 5 mL 10 MG IVP (14:13)
[2024-08-07 14:16] LABS: Basophils % 0.1 %; Eosinophils # 0.1 10^3/uL (0.0-0.8); Eosinophils % 0.7 %; Hematocrit 33.8 % (36-47); Lymphocytes # 1.6 10^3/uL (0.8-4.8); Mean Corpuscular HGB Conc 29.9 g/dL (30-55); Mean Corpuscular Hemoglobin 24.9 pg (27-33); Mean Corpuscular Volume 83.3 fl (85-98); Mean Platelet Volume 8.9 fL (7.4-10.4); Monocytes # 0.9 10^3/uL (0.2-0.9); Monocytes % 8.1 %; Neutrophils # 8.16 10^3/uL (1.8-7.7); Neutrophils % 75.8 %; Nucleated Red Blood Cells % 0 %; Platelet Count 344 10^3/cmm (157-399); Red Blood Count 4.06 10^6/uL (3.85-5.65); Red Cell Distribution Width 18.9 % (12.1-15.1); White Blood Count 10.75 10^3/uL (3.29-11.43)
[2024-08-07 14:22] LABS: Base Excess VBG 6.8 mmol/L (-3.0-3.0); Blood Gas Operator Identificat CAK; Blood Gas Sample Site Not specified; Blood Gas Sample Type Venous; HCO3 VBG 33.6 mmol/L (24-28); PCO2 VBG 60.5 mmHg (41-51); PO2 VBG 72.4 mmHg (25-40); Venous Blood Gas Hematocrit 29.1 % (37-47); pH VBG 7.35 (7.32-7.42)
--- NOTE | 2024-08-07 14:28 | ECG_ITS ---
[facility] Date: 2024-08-07 Pat Name: Patricia Tse Department: Room: Gender: Female Senior Analyst Market Intelligence: : 1960 Requested By: Brijesh Peck Order Number: [id number] Dede MD: Garry Georges M.D. Measurements Intervals [place] Rate: 112 P: 75 AL: 148 QRS: 66 QRSD: 97 T: 64 QT: 323 QTc: 441 Interpretive Statements SINUS TACHYCARDIA Compared to ECG 08/07/2024 13:53:18 No significant changes Electronically Signed On 08-07-2024 22:58:08 WEEKEND ANCHOR by Garry Georges M.D. [email or web address]
[2024-08-07 14:34] LABS: Lactic Sepsis W/Reflex 1.5 mmol/L (0.5-2.2)
[2024-08-07 14:42] LABS: NT Pro B Type Natriuretic Pept 96 pg/mL (0-125); Procalcitonin 0.13 ng/mL (0-0.5); Thyroid Stimulating Hormone 0.46 uIU/mL (0.27-4.20)
[2024-08-07] MEDS: ipratropium-albuterol 3 mL Neb INHALATION (14:51)
[2024-08-07 14:53] LABS: Alanine Aminotransferase 7 U/L (0-33); Albumin Level 3.8 g/dL (3.5-5.2); Alkaline Phosphatase 129 U/L (35-105); Aspartate Amino Transferase 10 U/L (0-32); Blood Urea Nitrogen 13 mg/dL (8-23); Calcium 9.1 mg/dL (8.5-10.5); Carbon Dioxide 31 mmol/L (22-29); Chloride 95 mmol/L (98-107); Creatinine Clr Calc Pharmacy 55.2148; Globulin 3.2 g/dL (1.3-4.6); Glomerular Filtration Rate 123.4 mL/min (90-130); Glucose 275 mg/dL (65-115); Magnesium 2.2 mg/dL (1.7-2.3); Osmolality Calculated 294 mOsm/kg (285-295); Sodium 137 mmol/L (136-145); Total Bilirubin 0.3 mg/dL (0.15-1.2)
[2024-08-07 14:58] LABS: Troponin(5th) Baseline 7 ng/L (0-10)
[2024-08-07] MEDS: dilTIAZem 100 MG in sodium chloride 0.9% (add-van) 100 ML IV (14:59)
--- NOTE | 2024-08-07 16:28 | ECG_ITS ---
[facility] Date: [facility]24[facility] Pat Name: Patricia Tse Department: Room: Gender: Female Enterprise Resource Planner: : 1960 Requested By: Brijesh Peck Order Number: [id number] Dede MD: Garry Georges M.D. Measurements Intervals [place] Rate: 108 P: 86 [place]: 147 QRS: 62 QRSD: 87 T: 66 QT: 330 QTc: 444 Interpretive Statements SINUS TACHYCARDIA Compared to ECG 08/07/2024 14:47:58 No significant changes Electronically Signed On 08-07-2024 23:21:28 PROTOTYPE MODEL MAKER by Garry Georges M.D. [id number]
[2024-08-07 16:35] LABS: Base Excess VBG 8.4 mmol/L (-3.0-3.0); Blood Gas Operator Identificat CAK; Blood Gas Sample Type Venous; HCO3 VBG 34.9 mmol/L (24-28); Oxygen Device BIPAP; PO2 VBG 31.8 mmHg (25-40); Venous Blood Gas Hematocrit 31.7 % (37-47); pH VBG 7.39 (7.32-7.42)
[2024-08-07] MEDS: methylPREDNISolone sod succ 125 mg/2 mL INJ IVP (17:10)
[2024-08-07] MEDS: levofloxacin-dextrose 5 % 500 MG/100 ML PREMIX 100 MG IV (17:13)
--- NOTE | 2024-08-07 17:16 | PM.HP ---
Providers/Chief Complaint Admitting Physician: Dannie York MD Primary Care Provider: Nikko Berry DO Chief Complaint: sob History of Present Illness Patricia Tse is a 64 year old female former smoker with past medical history of advanced COPD/emphysema, chronically on 2 L of oxygen supplementation, CPAP at night which she has not been able to use recently, hypertension, post CABG in 2005, CAD with PCI x 4 since CABG presents to the ER today because of difficulty in breathing which has been getting worse over last 6 to 8 weeks. As per the patient he has had multiple trips to the ER because of the same complaints and has had multiple rounds of steroids over the last 6 weeks. Patient states she started having difficulty in breathing on and off and after that she becomes anxious which makes her breathing worse. She has followed up with a primary care provider multiple times since then but unfortunately is not improving. In the ER she was found to have increased work of breathing for which she was started on BiPAP ventilation. Currently on examination she is on 4 L saturating 100%. States she is feeling better than before. Denies any nausea, vomiting, headache, sick contacts. Review of Systems General: Reports: 10 or more systems reviewed and unremarkable except in HPI and below Const: Denies: fever(s), chills, body aches, change in appetite, change in weight, malaise, night sweats, diaphoresis, change in sleep pattern, daytime sleepiness or snoring Eyes: Denies: change in vision, blurry vision, photophobia, eye discomfort or eye discharge ENMT: Denies: throat pain, enlarged tonsils, hoarseness, mouth pain, oral sores, dry mouth, tinnitus, nasal congestion or post nasal drip Card: Denies: chest pain, palpitations, irregular heart rhythm, edema, swelling of feet/ankles, lightheadedness, syncope, pre-syncope, dyspnea on exertion, orthopnea, leg pain with exertion or acrocyanosis Resp: Denies: dyspnea, productive cough, non-productive cough, wheezing, stridor, pain on inspiration, change in phlegm color, hemoptysis or chest congestion GI: Denies: abdominal pain, nausea, vomiting, hematemesis, coffee ground emesis, dysphagia, heartburn, diarrhea, constipation, bloating, GI cramping, change in bowel habits, pain on defecation, hematochezia or melena : Denies: flank pain, dysuria, urinary frequency, urinary urgency, urinary hesitancy, nocturia or hematuria Musc: Denies: neck pain, back pain, extremity pain, joint pain, joint swelling, joint redness, joint stiffness or limited range of motion Neuro: Denies: headache(s), numbness in extremities, weakness in extremities, sensory changes, lack of coordination, difficulty walking, frequent falls, dizziness, vertigo, confusion, Slurred speech present, difficulty communicating thoughts or seizure-like activity Psych: Denies: anxiety, depression, mood swings, panic attacks, hopelessness or irritability Endo: Denies: polyuria, polydipsia, tired all the time, cold intolerance, excessive sweating, flushing or heat intolerance Himanshu/Lymph: Denies: easy bruising or easy bleeding All/Imm: Denies: tongue swelling, facial swelling or acute wheezing Medications/Allergies Home Medications Medication Instructions Recorded Confirmed Last Taken Type aspirin 81 mg tablet,delayed 81 mg PO DAILY 03/05/22 08/07/24 08/07/24 History release (Adult Aspirin Regimen) revefenacin 175 mcg/3 mL solution 175 mcg inhalation BEDTIME 04/25/22 08/07/24 08/06/24 History for nebulization (Yupelri) budesonide 0.5 mg/2 mL suspension 0.5 mg (2 mL) inhalation BID #60 mL 07/21/23 08/07/24 08/07/24 Rx for nebulization albuterol sulfate 90 mcg/actuation 2 puff inhalation Q6H PRN 07/21/24 08/07/24 08/07/24 Rx aerosol inhaler shortness of breath or wheezing #8.5 grams buspirone 10 mg tablet 10 mg PO TID PRN Panic attack #90 07/21/24 08/07/24 07/29/24 Rx tabs clopidogrel 75 mg tablet (Plavix) 75 mg PO DAILY #90 tabs 07/21/24 08/07/24 08/07/24 Rx lorazepam 0.5 mg tablet 0.5 mg PO DAILY PRN anxiety 07/21/24 08/07/24 Unknown Rx attacks #15 tabs metoprolol tartrate 50 mg tablet 50 mg PO BID #180 tabs 07/21/24 08/07/24 08/07/24 Rx (Lopressor) ascorbic acid (vitamin C) 500 mg 500 mg PO BID 07/30/24 08/07/24 08/07/24 History tablet (Vitamin C) ferrous sulfate 325 mg (65 mg 325 mg PO BID 07/30/24 08/07/24 08/07/24 History iron) tablet (iron) gabapentin 100 mg capsule 100 mg PO TID PRN nerve pain 08/07/24 08/07/24 Unknown History hydrocodone 5 mg-acetaminophen 325 1 - 2 tab PO .Q4-6H PRN Pain 08/07/24 08/07/24 Unknown History mg tablet ipratropium 0.5 mg-albuterol 3 mg 3 ml inhalation Q4H PRN Shortness 08/07/24 08/07/24 Unknown History (2.5 mg base)/3 mL nebulization Of Breath Or Wheezing soln Allergies Allergy/AdvReac Type Severity Reaction Status Date / Time metronidazole [From Flagyl] Allergy ALGY-Hives Verified 08/07/24 13:42 PFSH Acute PFSH: Medical History (Updated 08/07/24 @ 18:04 by Dannie York MD) Traumatic compression fracture of tenth thoracic vertebra Traumatic compression fracture of eleventh thoracic vertebra SUDARSHAN (obstructive sleep apnea) Tooth abscess Generalized anxiety disorder Essential hypertension Major depression in partial remission Chronic respiratory failure with hypoxia, on home oxygen therapy Chronic stable angina Traumatic compression fracture of L1 lumbar vertebra COPD (chronic obstructive pulmonary disease) Osteoporosis Surgical History Status post double vessel coronary artery bypass H/O heart artery stent H/O kyphoplasty Social History Smoking and tobacco/nicotine status: former use of tobacco/nicotine Quit status (tobacco/nicotine): has quit using Year quit tobacco: Apr 2022 Former quit date comment: 1ppd x 30years Second hand smoke exposure: Yes Alcohol intake: never Substance/Drug Use: never Adopted: No Caregiver/support person: Yes Lives independently: No Household members: spouse Housing: House Marital status: Number of children: 4 Number of grandchildren: 12 Highest education level completed: 10th Grade service: No Current occupational status: retired and disabled Current occupational exposures/hazards: No Pets and animals: No Sexually active: Yes Do you think of yourself as: Straight/Heterosexual Current gender identity: Female Special annika needs: No Agree to transfusion: Yes Female Reproductive History: Spontaneous abortions: No Vitals/I&O/Wt Last Vital Signs Temp 98.5 F 08/07/24 13:37 Pulse 114 H 08/07/24 15:09 Resp 16 08/07/24 14:51 BP 148/76 08/07/24 13:57 Pulse Ox 95 08/07/24 15:09 O2 Del Method Nasal Cannula 08/07/24 14:51 O2 Flow Rate 4 08/07/24 14:51 FiO2 30 08/07/24 15:09 Weight last 48 hrs Weight 51.256 kg Physical Exam Narrative: General: In mild distress because of difficulty in breathing, 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, AO x3, nasal cannula HEENT: PERRLA, pupils bilaterally equal and reactive Chest: Bronchial breath sounds all over lung sparrow with occasional rhonchi, occasional crackles diffuse CVS: S1-S2 regular, no murmurs, no tachycardia, no gallops, no rubs Abdomen: Soft, nontender, no organomegaly, bowel sounds present Neuro: No focal deficits, no facial deformity, AO x3, power 5/5 in all limbs Data 08/07/24 13:55 08/07/24 13:55 A&P Assessment and plan (1) Acute on chronic hypoxic respiratory failure: (2) Failure of outpatient treatment: (3) Chronic respiratory failure with hypoxia, on home oxygen therapy: (4) CAD (coronary artery disease): Qualifiers: Coronary Disease-Associated Artery/Lesion type: [place] artery [place] vs. transplanted heart: [place] heart Associated angina: without angina Qualified Code(s): I25.10 - Atherosclerotic heart disease of [place] coronary artery without angina pectoris (5) Essential hypertension: (6) Generalized anxiety disorder: (7) SUDARSHAN (obstructive sleep apnea): Plan History of advanced COPD. Chronically on 2 L. Uses CPAP at night but recently noncompliant. Also has history of CAD post CABG and PCI. Currently acute on chronic hypoxic respiratory failure in setting of COPD exacerbation. Check respiratory viral panel, sputum culture, MRSA swab. Oxygen supplementation keeping saturation over 88%. Check D-dimer. Depending on D-dimer will plan for CTA versus CT chest. Solu-Medrol 40 mg every 6 hour. Pulmicort twice daily, ipratropium, Xopenex every 4 hour. Check echocardiogram. Concern for congestive heart failure versus pulmonary hypertension. IV Lasix 40 mg oral daily. Most likely patient will need to be on daily Lasix. Fluid restriction to less than 1500 cc. Tachycardia: Concern for possible atrial tachycardia on presentation to the ER. Was started on Cardizem drip. Currently has been discontinued. Most likely sinus tachycardia versus atrial tachycardia. Takes metoprolol 50 mg twice daily at home. Given advanced COPD would be better to switch to Cardizem. Hold off on metoprolol for now. Start on Cardizem 30 mg Q6 hourly. Generalized anxiety disorder: For now continue with home dose of Xanax as needed, gabapentin 100 mg 3 times daily as needed, BuSpar 10 mg 3 times daily as needed to be changed to scheduled. History of CAD: Post CABG. History of PCI. Cycle troponin. Denies any chest pain. Continue with Plavix. Check A1c, lipid panel. Check echocardiogram. Type 2 diabetes mellitus: No past history. Check A1c. Depending on the A1c will plan for insulin sliding scale. CODE STATUS: Full code Cardiac diet Protonix for PUD prophylaxis Heparin 5000 Q12 hourly for DVT prophylaxis Attestations Medical Necessity Statement*: Admission for more than 2 midnights for management of acute on chronic hypoxic respiratory failure in setting of COPD exacerbation, obstructive sleep apnea Diagnoses Acute on chronic hypoxic respiratory failure J96.21 Failure of outpatient treatment Z78.9 Chronic respiratory failure with hypoxia, on home oxygen therapy J96.11; Z99.81 Coronary artery disease involving [place] coronary artery of [place] heart without angina pectoris I25.10 Coronary Disease-Associated Artery/Lesion type: [place] artery [place] vs. transplanted heart: [place] heart Associated angina: without angina Essential hypertension I10 Generalized anxiety disorder F41.1 SUDARSHAN (obstructive sleep apnea) G47.33
[2024-08-07 17:34] LABS: D Dimer 0.55 ug/mLFEU (0-0.59)
--- NOTE | 2024-08-07 17:42 | CTR_ITS ---
PROCEDURE INFORMATION: Exam: CT Chest Without Contrast; Diagnostic Exam date and time: 08/07/2024 6:20 PM Age: 64 years old Clinical indication: Shortness of breath; Prior surgery; Surgery date: 6+ months; Surgery type: Cabg. Coronary stents. Kyphoplasty. Patient HX: C/O SOB. History of copd. ; Additional info: Resp failure TECHNIQUE: Imaging protocol: Diagnostic computed tomography of the chest without contrast. Radiation optimization: All CT scans at this facility use at least one of these dose optimization techniques: automated exposure control; mA and/or kV adjustment per patient size (includes targeted exams where dose is matched to clinical indication); or iterative reconstruction. COMPARISON: CT lung screening [id number] 01/29/2023 1:35 PM RADIATION DOSE METRICS: Total DLP (mGy-cm): 222.05 FINDINGS: Lungs: Moderate centrilobular emphysema. There are calcified granulomas in the right lower lobe. No consolidation. Pleural spaces: There is no pleural effusion or pneumothorax. Heart: Heart size is normal. There is no pericardial effusion. Coronary arteries: There is moderate coronary artery calcification. Lymph nodes: There is no mediastinal or hilar lymphadenopathy. There are calcified right hilar lymph nodes. Vasculature: There is moderate aortic atherosclerotic disease. Mild fat stranding surrounding the upper abdominal aorta. Diaphragm: There is a moderate size sliding-type hiatal hernia. Spleen: Splenic size is normal. There are scattered calcifications consistent with healed granulomas. Kidneys: 16 mm branching nonobstructive stone in the left renal collecting system. There are additional smaller stones in both kidneys. Intestine: There is a non-inflamed diverticulum in the proximal duodenum. Bones/joints: There has been a sternotomy with intact repair. No dehiscence. There are multilevel thoracic vertebral compression fractures and multilevel vertebroplasty. Compression fractures at T3, T4, T5, and T6 are stable since 04/29/2022. T7 compression fracture status post vertebroplasty is new. There is extension of vertebroplasty cement anterior to the T7 vertebra. T9 and T10 compression fractures and vertebroplasty are new. L1 compression fracture and vertebroplasty is stable. Soft tissues: The extrathoracic soft tissues are unremarkable. CT/CT chest wo con [id number] IMPRESSION: 1. Moderate centrilobular emphysema. No acute pulmonary findings. 2. Multilevel chronic thoracic vertebral compression fractures with multilevel vertebroplasty. 3. Mild fat stranding surrounding the upper abdominal aorta. Possible retroperitoneal fibrosis. 4. Incidental findings above. COMMENTS: The presence of pulmonary emphysema on CT is an independent risk factor for lung cancer. In the absence of a history or active diagnosis of lung cancer, it is recommended that this patient with emphysema be evaluated for enrollment in a low dose CT lung cancer screening program.
[2024-08-07] MEDS: dilTIAZem 30 mg Tablet PO ×2 (18:06→20:11)
[2024-08-07] MEDS: FUROsemide 10 mg/mL SDV 4mL 40 MG IVP (18:07)
[2024-08-07 19:27] LABS: Adenovirus Not Detected (NOT DETECT); Chlamydia Pneumoniae Not Detected (NOT DETECT); Coronavirus 229E,HKU1,NL63,OC4 Not Detected (NOT DETECT); Human Metapneumovirus Not Detected (NOT DETECT); Human Rhinovirus/Enterovirus Not Detected (NOT DETECT); Influenza A Not Detected (NOT DETECT); Influenza A H1 Not Detected (NOT DETECT); Influenza A H1-2009 Not Detected (NOT DETECT); Influenza A H3 Detected (NOT DETECT); Influenza B Not Detected (NOT DETECT); Mycoplasma Pneumoniae Not Detected (NOT DETECT); Parainfluenza Virus Type 1 Not Detected (NOT DETECT); Parainfluenza Virus Type 2 Not Detected (NOT DETECT); Parainfluenza Virus Type 3 Not Detected (NOT DETECT); Parainfluenza Virus Type 4 Not Detected (NOT DETECT); Respiratory Syncytial Virus A Not Detected (NOT DETECT); Respiratory Syncytial Virus B Not Detected (NOT DETECT); SARS-COV-2 Not Detected (NOT DETECT)
[2024-08-07 19:51] LABS: Estmated Average Glucose 126
[2024-08-07] MEDS: budesonide 0.5 mg/2 mL Neb INHALATION (20:11)
[2024-08-07] MEDS: ferrous sulfate EC 325 mg Tablet PO (20:11)
[2024-08-07] MEDS: docusate sodium 100 mg Capsule PO (20:11)
[2024-08-07 20:12] LABS: Iron 9 ug/dL (37-145); Percent Saturation 2.8 % (20-50); Thyroid Stimulating Hormone 0.47 uIU/mL (0.27-4.20); Total Iron Binding Capacity 320 mcg/dl; Unsaturated Iron Binding 311 ug/dL (112-347); Vitamin B12 483 pg/mL (232-1245)
[2024-08-07] MEDS: levalbuterol 0.63 mg/3 mL Neb INHALATION (20:12)
[2024-08-07] MEDS: ipratropium 0.5 mg/2.5 mL Neb INHALATION (20:12)
[2024-08-07] MEDS: cefTRIAXone 1,000 mg SDV 1000 MG IVP (20:12)
[2024-08-07] MEDS: pantoprazole 40 mg SDV IVP (20:14)
[2024-08-07 20:15] LABS: Bilirubin Urine Negative (Negative); Blood Urine Negative (Negative); Glucose Urine UA Negative (Normal); Ketones Urine Negative (Negative); Leukocyte Esterase Urine Negative (Negative); Nitrate Urine Negative (Negative); Protein Urine Negative (Negative); Specific Gravity, Urine 1.006 (1.005-1.030); Urine Appearance Clear (CLEAR); Urine Color Yellow (Yellow); Urobilinogen Urine 0.2 mg/dL (Negative)
--- NOTE | 2024-08-07 20:19 | ECG_ITS ---
[facility]: 2024-08[facility]07 Pat Name: Patricia Tse Department: Room: 106 Gender: Female Differential Tester: : 1960 Requested By: Brijesh Peck Order Number: [id number] Dede MD: Garry Georges M.D. Measurements Intervals [place] Rate: 110 P: 56 [place]: 120 QRS: 74 QRSD: 112 T: 100 QT: 347 QTc: 471 Interpretive Statements SINUS TACHYCARDIA POSSIBLE RIGHT VENTRICULAR CONDUCTION DELAY [RSR (QR) IN V1/V2] ST DEPRESSION, CONSIDER SUBENDOCARDIAL INJURY [0.1+ mV ST DEPRESSION] Compared to ECG 08/07/2024 16:58:36 ST (T wave) deviation now present Electronically Signed On 08-07-2024 23:20:33 MATERIAL SCHEDULER by Garry Georges M.D. [email or web address]
[2024-08-07 20:20] LABS: Add Urine Microscopic? YES; Bacteria Urine None Seen /hpf; Hyaline Casts Urine 0.81 /lpf; RBC Urine 0-2 /hpf (0-2); Squamous Epithelial Cell Urine 0-5 /hpf (0-5); WBC Urine 0-5 /hpf (0-5)
[2024-08-07] MEDS: heparin 5,000 unit/mL INJ 1 mL 5000 UNIT SUBCUT (20:26)
[2024-08-07 20:34] LABS: Troponin 5 6HR 7.65 ng/L (0-10); Troponin 5 6HR Delta 0.65 ng/L (0-12)
[2024-08-07 21:25] LABS: MRSA PCR OZH (swab) NOT DETECTED (Not Detecte)
[2024-08-07] MEDS: oseltamivir phosphate 75 mg Capsule PO (21:46)
[2024-08-07] MEDS: LORazepam 0.5 mg Tablet PO (21:52)
[2024-08-08] VITALS (14 sets, daily range): BP systolic 97–125; BP diastolic 55–82; PULSE 84–110; RESP 16–24; TEMP 36.3–36.9; O2SAT 91–99
[2024-08-08 02:49] LABS: Basophils % 0.1 %; Hematocrit 31.4 % (36-47); Lymphocytes # 0.3 10^3/uL (0.8-4.8); Lymphocytes % 4.6 %; Mean Corpuscular HGB Conc 28.3 g/dL (30-55); Mean Corpuscular Hemoglobin 24.7 pg (27-33); Mean Platelet Volume 9.1 fL (7.4-10.4); Monocytes % 0.5 %; Neutrophils # 6.96 10^3/uL (1.8-7.7); Neutrophils % 94.3 %; Nucleated Red Blood Cells % 0.3 %; Platelet Count 318 10^3/cmm (157-399); Red Blood Count 3.61 10^6/uL (3.85-5.65); White Blood Count 7.39 10^3/uL (3.29-11.43)
[2024-08-08 03:14] LABS: Alanine Aminotransferase 7 U/L (0-33); Albumin Level 3.5 g/dL (3.5-5.2); Alkaline Phosphatase 117 U/L (35-105); Blood Urea Nitrogen 14 mg/dL (8-23); Calcium 8.6 mg/dL (8.5-10.5); Carbon Dioxide 28 mmol/L (22-29); Chloride 92 mmol/L (98-107); Chol HDL Ratio 2.98 mg/dL (0.0-4.40); Cholesterol 146 mg/dL (0-200); Creatinine Clr Calc Pharmacy 55.2148; Globulin 4.1 g/dL (1.3-4.6); Glomerular Filtration Rate 123.4 mL/min (90-130); Glucose 296 mg/dL (65-115); HDL Cholesterol 49 mg/dL (60-100); LDL Cholesterol Calculated 78 mg/dL (50-129); LDL HDL Ratio 1.59 RATIO (0.00-3.22); Magnesium 2.1 mg/dL (1.7-2.3); Osmolality Calculated 285 mOsm/kg (285-295); Phosphorus 2.6 mg/dL (2.5-4.5); Sodium 132 mmol/L (136-145); Total Bilirubin 0.2 mg/dL (0.15-1.2); Total Protein 7.6 g/dL (6.6-8.7); Triglycerides 94 mg/dL (0-150)
[2024-08-08 03:19] LABS: Anion Gap 16.2 (5-19); Aspartate Amino Transferase 10 U/L (0-32); Potassium 4.2 mmol/L (3.5-5.1)
[2024-08-08] MEDS: ipratropium 0.5 mg/2.5 mL Neb INHALATION ×4 (03:40→19:50)
[2024-08-08] MEDS: levalbuterol 0.63 mg/3 mL Neb INHALATION ×4 (03:40→19:50)
[2024-08-08 04:48] LABS: Folate Level 16.2 ng/mL (4.8-37.3)
[2024-08-08] MEDS: budesonide 0.5 mg/2 mL Neb INHALATION ×2 (07:24→19:50)
[2024-08-08] MEDS: azithromycin 250 mg Tablet 500 MG PO (09:55)
[2024-08-08] MEDS: oseltamivir phosphate 75 mg Capsule PO ×2 (09:55→18:10)
[2024-08-08] MEDS: aspirin 81 mg EC Tablet PO (09:55)
[2024-08-08] MEDS: heparin 5,000 unit/mL INJ 1 mL 5000 UNIT SUBCUT ×2 (09:55→19:42)
[2024-08-08] MEDS: ferrous sulfate EC 325 mg Tablet PO ×2 (09:55→18:10)
[2024-08-08] MEDS: clopidogrel 75 mg Tablet PO (09:56)
[2024-08-08] MEDS: dilTIAZem 30 mg Tablet PO ×4 (09:56→21:33)
[2024-08-08] MEDS: methylPREDNISolone sod succ 40 mg/mL INJ IVP ×2 (12:18→18:09)
--- NOTE | 2024-08-08 13:55 | PM.PN ---
Subjective Subjective: No acute events overnight. On examination she is on 4 L saturating 100%. States she is feeling well. Denies any nausea, vomiting, headache. Complaining of mild myalgias. Vitals/I&O/Wt Last Vital Signs Temp 97.9 F 08/08/24 12:00 Pulse 108 H 08/08/24 13:35 Resp 18 08/08/24 13:25 BP 116/62 08/08/24 12:00 Pulse Ox 93 08/08/24 13:25 O2 Del Method Nasal Cannula 08/08/24 13:25 O2 Flow Rate 2 08/08/24 13:25 FiO2 30 08/07/24 22:36 08/07/24 08/08/24 08/08/24 22:59 06:59 14:59 Intake Total 320.000 / 320.000 240 / 240 Balance 320.000 / 320.000 240 / 240 Weight last 48 hrs Weight 49.442 kg Weight 51.256 kg Physical Exam Narrative: General: No acute distress, AO x3, nasal cannula HEENT: PERRLA, pupils bilaterally equal and reactive Chest: Bronchial breath sounds all over lung sparrow with occasional rhonchi, occasional crackles diffuse CVS: S1-S2 regular, no murmurs, no tachycardia, no gallops, no rubs Abdomen: Soft, nontender, no organomegaly, bowel sounds present Neuro: No focal deficits, no facial deformity, AO x3, power 5/5 in all limbs Data 08/08/24 01:52 08/08/24 01:52 A&P Assessment and plan (1) Acute on chronic hypoxic respiratory failure: (2) Failure of outpatient treatment: (3) Chronic respiratory failure with hypoxia, on home oxygen therapy: (4) CAD (coronary artery disease): Qualifiers: Coronary Disease-Associated Artery/Lesion type: [place] artery [place] vs. transplanted heart: [place] heart Associated angina: without angina Qualified Code(s): I25.10 - Atherosclerotic heart disease of [place] coronary artery without angina pectoris (5) Essential hypertension: (6) Generalized anxiety disorder: (7) SUDARSHAN (obstructive sleep apnea): (8) Influenza A: Plan History of advanced COPD. Chronically on 2 L. Uses CPAP at night but recently noncompliant. Also has history of CAD post CABG and PCI. Currently acute on chronic hypoxic respiratory failure in setting of COPD exacerbation due to influenza. Appreciate respiratory viral panel. Positive influenza A. Sputum culture not collected yet. MRSA swab negative. D-dimer negative. Appreciate CT chest. Concern for severe COPD. Oxygen supplementation keeping saturation over 88%. Start on Tamiflu 75 mg twice daily. Wean Solu-Medrol 40 mg every 8 hour. Pulmicort twice daily, ipratropium, Xopenex every 4 hour. Echocardiogram done shows EF of 55 to 60%, grade 1 diastolic function, mild MR, mild TR with mild pulmonary hypertension with RVSP of 35 to 40 mmHg. Did receive Lasix yesterday. No urine output charted. Renal functions have remained stable. Given severe COPD will need to keep her net negative. Start on Lasix 20 mg oral daily. Fluid restriction to less than 1500 cc. Tachycardia: Concern for possible atrial tachycardia on presentation to the ER. Was started on Cardizem drip. Currently has been discontinued. Most likely sinus tachycardia versus atrial tachycardia. Takes metoprolol 50 mg twice daily at home. Given advanced COPD would be better to switch to Cardizem. Hold off on metoprolol for now. Continue with Cardizem 30 mg Q6 hourly. Generalized anxiety disorder: Agreeable to be started on daily medication. Start on BuSpar 10 mg twice daily. Now continue with home dose of Xanax as needed, gabapentin 100 mg 3 times daily as needed, Stop BuSpar 10 mg 3 times daily as needed. History of CAD: Post CABG. History of PCI. Cycle troponin. Denies any chest pain. Continue with Plavix. Appreciate A1c, lipid panel. Appreciate echocardiogram. Type 2 diabetes mellitus: No past history. A1c of 6. Hold off on any sliding scale. Depending on the A1c will plan for insulin sliding scale. CODE STATUS: Full code Cardiac diet Protonix for PUD prophylaxis Heparin 5000 Q12 hourly for DVT prophylaxis Attestations Medical Necessity Statement*: Requires further hospitalization for management of acute on chronic hypoxic and hypercapnic respiratory failure in setting of COPD exacerbation, influenza A Diagnoses Acute on chronic hypoxic respiratory failure J96.21 Failure of outpatient treatment Z78.9 Chronic respiratory failure with hypoxia, on home oxygen therapy J96.11; Z99.81 Coronary artery disease involving [place] coronary artery of [place] heart without angina pectoris I25.10 Coronary Disease-Associated Artery/Lesion type: [place] artery [place] vs. transplanted heart: [place] heart Associated angina: without angina Essential hypertension I10 Generalized anxiety disorder F41.1 SUDARSHAN (obstructive sleep apnea) G47.33 Influenza A J10.1
[2024-08-08] MEDS: FUROsemide 20 mg Tablet PO (14:51)
--- NOTE | 2024-08-08 17:52 | USCV_ITS ---
Stage, Patricia Age: 64 Gender: F : 1960 Exam Date: 08/08/2024 08:52 Ordering Phys: Dannie York MD Technologist: Rui Cardoza [place] [facility] [place] ch[place] BP: 113 / 61 HR: 93 Rhythm: Sinus Technical Quality: Adequate MEASUREMENTS (Male / Female) Normal Values 2D ECHO LV Diastolic Diameter PLAX 4.7 cm 4.2 - 5.9 / 3.9 - 5.3 cm IVS Diastolic Thickness 0.8 cm 0.6 - 1.0 / 0.6 - 0.9 cm IVS Systolic Thickness 1.0 cm LVPW Diastolic Thickness 1.0 cm 0.6 - 1.0 / 0.6 - 0.9 cm LVPW Systolic Thickness 1.5 cm LVOT Diameter 2.1 cm LV Ejection Fraction 2D Teich 76.4 % LV Ejection Fraction MOD 4C 68.0 % LV Ejection Fraction MOD 2C 59.6 % LV Ejection Fraction 2C AL 60.9 % LA Diameter 3.0 cm RA Systolic Volume 4C AL 27.7 ml RA Systolic Volume 4C MOD 27.4 ml LA Sys Volume AL 40.6 cm cubed LA Sys Volume Index AL 27.7 cm cubed/m squared Aorta at Sinotubular Diameter 1.9 cm IVC Diameter 1.5 cm M-MODE LA Ao Ratio MM 1.3 AV Cusp Separation MM 1.7 cm DOPPLER AV Peak Velocity 160.0 cm/s LVOT Peak Velocity 88.0 cm/s AV Area Cont Eq vti 1.8 cm squared AV Area Cont Eq pk 1.9 cm squared MV Peak Velocity 135.0 cm/s MV Area PHT 4.9 cm squared Mitral E to A Ratio 0.5 TV Peak Velocity 254.0 cm/s TR Peak Velocity 307.0 cm/s TR Peak Gradient 37.7 mmHg TR Mean Velocity 242.0 cm/s TR Mean Gradient 25.3 mmHg TR Velocity Time Integral 68.8 cm PV Peak Velocity 103.0 cm/s RV Ejection Time 0.2 s FINDINGS Left Ventricle Left ventricle is normal size. LV systolic function is normal with EF of 55-60%. No regional wall motion abnormalities are seen. Grade 1 diastolic dysfunction Right Ventricle Normal in size and function Right Atrium Normal in size Left Atrium Normal in size Mitral Valve Structurally normal mitral valve. Mild mitral regurgitation Aortic Valve Aortic valve is thickened. No significant stenosis or regurgitation. Tricuspid Valve Mild tricuspid regurgitation. RVSP is 35-40 mmHg. Mild pulmonary hypertension Pulmonic Valve Trace pulmonic regurgitation Pericardium Normal Aorta Normal in size IVC Appears to be normal CONCLUSIONS LV systolic function is normal with EF of 55-60% Grade 1 diastolic dysfunction Mild mitral regurgitation Mild tricuspid regurgitation Mild pulmonary hypertension Trace pulmonic regurgitation Garry Georges MD (Electronically Signed) Final Date: 08 August 2024 10:11 S
[2024-08-08] MEDS: BuSPIRONE 10 mg Tablet PO (18:10)
[2024-08-08] MEDS: cefTRIAXone 1,000 mg SDV 1000 MG IVP (19:42)
[2024-08-08] MEDS: pantoprazole 40 mg SDV IVP (19:42)
[2024-08-09] VITALS (8 sets, daily range): BP systolic 112–122; BP diastolic 50–70; PULSE 70–103; RESP 14–20; TEMP 36.5–36.7; O2SAT 90–95
[2024-08-09] MEDS: gabapentin 100 mg Capsule PO (00:02)
[2024-08-09] MEDS: methylPREDNISolone sod succ 40 mg/mL INJ IVP (01:36)
[2024-08-09] MEDS: phenol oral Spray 177 mL 3 SPRAY MUCOUS MEM (03:24)
[2024-08-09 03:57] LABS: Basophils % 0.2 %; Hematocrit 28.5 % (36-47); Lymphocytes # 0.5 10^3/uL (0.8-4.8); Lymphocytes % 3.5 %; Mean Corpuscular HGB Conc 30.2 g/dL (30-55); Mean Corpuscular Hemoglobin 25.1 pg (27-33); Mean Corpuscular Volume 83.3 fl (85-98); Mean Platelet Volume 8.9 fL (7.4-10.4); Monocytes # 0.3 10^3/uL (0.2-0.9); Monocytes % 2.4 %; Neutrophils # 11.85 10^3/uL (1.8-7.7); Nucleated Red Blood Cells % 0 %; Platelet Count 436 10^3/cmm (157-399); Red Blood Count 3.42 10^6/uL (3.85-5.65); Red Cell Distribution Width 19.1 % (12.1-15.1); White Blood Count 12.73 10^3/uL (3.29-11.43)
[2024-08-09 04:20] LABS: Alanine Aminotransferase 6 U/L (0-33); Albumin Level 3.7 g/dL (3.5-5.2); Alkaline Phosphatase 111 U/L (35-105); Anion Gap 14.7 (5-19); Aspartate Amino Transferase 7 U/L (0-32); Blood Urea Nitrogen 13 mg/dL (8-23); Calcium 9.4 mg/dL (8.5-10.5); Carbon Dioxide 33 mmol/L (22-29); Chloride 91 mmol/L (98-107); Creatinine Clr Calc Pharmacy 54.4225; Globulin 3.6 g/dL (1.3-4.6); Glucose 323 mg/dL (65-115); Magnesium 2.2 mg/dL (1.7-2.3); Osmolality Calculated 293 mOsm/kg (285-295); Phosphorus 1.9 mg/dL (2.5-4.5); Potassium 3.7 mmol/L (3.5-5.1); Sodium 135 mmol/L (136-145); Total Bilirubin 0.2 mg/dL (0.15-1.2); Total Protein 7.3 g/dL (6.6-8.7)
[2024-08-09] MEDS: ipratropium 0.5 mg/2.5 mL Neb INHALATION ×2 (04:34→08:00)
[2024-08-09] MEDS: levalbuterol 0.63 mg/3 mL Neb INHALATION ×2 (04:35→08:00)
--- NOTE | 2024-08-09 06:36 | PC.NURSE ---
Heparin Patient refuses heparin at this time, stating that she will take it in a little bit.
[2024-08-09] MEDS: budesonide 0.5 mg/2 mL Neb INHALATION (08:00)
--- NOTE | 2024-08-09 12:56 | PM.DCS ---
Discharge Providers Date of Admission: 08/07/24 16:29 Date of Discharge: August 09, 2024 Attending Provider at Admission: Dannie York MD Attending Provider at Discharge: Dannie York MD Primary Care Provider: Nikko Berry DO Diagnoses at Discharge Discharge Diagnosis (1) Acute on chronic hypoxic respiratory failure: Status: Acute (2) Failure of outpatient treatment: Status: Acute (3) Chronic respiratory failure with hypoxia, on home oxygen therapy: Status: Acute (4) CAD (coronary artery disease): Status: Chronic Qualifiers: Associated angina: without angina Coronary Disease-Associated Artery/Lesion type: [place] artery [place] vs. transplanted heart: [place] heart Qualified Code(s): I25.10 - Atherosclerotic heart disease of [place] coronary artery without angina pectoris (5) Essential hypertension: Status: Acute (6) Generalized anxiety disorder: Status: Acute (7) SUDARSHAN (obstructive sleep apnea): Status: Acute (8) Influenza A: Status: Acute Reason for Visit Reason for Visit: sob Hospital Course Hospital Course Patricia Tse is a 64 year old female former smoker with past medical history of advanced COPD/emphysema, chronically on 2 L of oxygen supplementation, CPAP at night which she has not been able to use recently, hypertension, post CABG in 2005, CAD with PCI x 4 since CABG presents to the ER today because of difficulty in breathing which has been getting worse over last 6 to 8 weeks. As per the patient he has had multiple trips to the ER because of the same complaints and has had multiple rounds of steroids over the last 6 weeks. Patient states she started having difficulty in breathing on and off and after that she becomes anxious which makes her breathing worse. She has followed up with a primary care provider multiple times since then but unfortunately is not improving. In the ER she was found to have increased work of breathing for which she was started on BiPAP ventilation. Currently on examination she is on 4 L saturating 100%. States she is feeling better than before. Denies any nausea, vomiting, headache, sick contacts. Patient was admitted to the hospital further evaluation and management of acute on chronic hypoxic and hypercapnic respiratory failure. She was found to be positive for flu. She was started on treatment with inhalation and systemic steroids. Echocardiogram was done which is consistent with mild pulmonary hypertension with diastolic dysfunction. During hospitalization she was found to be tachycardic for which she was started on oral Cardizem and was transitioned of beta-dallin given severe COPD. She responded well to the treatment and her oxygen requirements have come down to her baseline for last 48 hours. Steroids are being weaned down as well. Her oxygen supplementation is weaned down keeping saturation over 88%. She has been discharged in hemodynamically stable condition with counseling to quit smoking, lifestyle changes in setting of severe COPD complicated with anxiety. For anxiety she has been started on BuSpar 10 mg twice daily as per as needed. She has been discharged in medically stable condition on oral antibiotic for 5 days, Tamiflu for 5 days, steroid taper along with inhalation treatment. She is to follow-up with a primary care provider within next 10 days. She is also been discharged on daily Lasix 20 mg with counseling for fluid restriction. Given her advanced COPD she is at a high risk of readmission. Physical Exam Narrative: General: No acute distress, AO x3, nasal cannula HEENT: PERRLA, pupils bilaterally equal and reactive Chest: Bronchial breath sounds all over lung sparrow with occasional rhonchi, occasional crackles diffuse CVS: S1-S2 regular, no murmurs, no tachycardia, no gallops, no rubs Abdomen: Soft, nontender, no organomegaly, bowel sounds present Neuro: No focal deficits, no facial deformity, AO x3, power 5/5 in all limbs Discharge Data Studies Completed and Pending Completed Studies During Hospitalization Category Date Time Status CT chest wo con [id number] Stat Cat Scan 08/07/24 17:42 Completed XR chest 1V portable [id number] Stat Exams 08/07/24 14:01 Completed CV. echo complete* [id number] Routine Ultrasound 08/08/24 17:52 Completed Pending at discharge Category Date Time Status Bacterial Antigen Stat Lab 08/07/24 17:14 Ordered Complete Blood Count w/Auto AM LABS Lab 08/10/24 04:00 Ordered Comprehensive Metabolic Panel AM LABS Lab 08/10/24 04:00 Ordered Magnesium AM LABS Lab 08/10/24 04:00 Ordered Phosphorus AM LABS Lab 08/10/24 04:00 Ordered Sputum Culture and Gram Stain Stat Lab 08/07/24 18:09 Uncollected VBG [Venous Blood Gas] Stat Lab 08/07/24 16:23 Results Radiology Impressions Chest X-Ray 08/07/24 14:01 IMPRESSION: 1. No acute findings. 2. Emphysema. 3. Incidental findings above. Chest CT 08/07/24 17:42 IMPRESSION: 1. Moderate centrilobular emphysema. No acute pulmonary findings. 2. Multilevel chronic thoracic vertebral compression fractures with multilevel vertebroplasty. 3. Mild fat stranding surrounding the upper abdominal aorta. Possible retroperitoneal fibrosis. 4. Incidental findings above. COMMENTS: The presence of pulmonary emphysema on CT is an independent risk factor for lung cancer. In the absence of a history or active diagnosis of lung cancer, it is recommended that this patient with emphysema be evaluated for enrollment in a low dose CT lung cancer screening program. Laboratory Results WBC 12.73 10^3/uL (3.29-11.43) H 08/09/24 03:42 RBC 3.42 10^6/uL (3.85-5.65) L 08/09/24 03:42 Hgb 8.60 g/dL (11.27-16.99) L 08/09/24 03:42 Hct 28.5 % (36-47) L 08/09/24 03:42 MCV 83.3 fl (85-98) L 08/09/24 03:42 MCH 25.1 pg (27-33) L 08/09/24 03:42 MCHC 30.2 g/dL (30-55) D 08/09/24 03:42 RDW 19.1 % (12.1-15.1) H 08/09/24 03:42 Plt Count 436 10^3/cmm (157-399) H D 08/09/24 03:42 MPV 8.9 fL (7.4-10.4) 08/09/24 03:42 Neut % (Auto) 93.0 % 08/09/24 03:42 Lymph % (Auto) 3.5 % 08/09/24 03:42 [place] % (Auto) 2.4 % 08/09/24 03:42 Eos % (Auto) 0.0 % 08/09/24 03:42 Baso % (Auto) 0.2 % 08/09/24 03:42 Neut # (Auto) 11.85 10^3/uL (1.8-7.7) H 08/09/24 03:42 Lymph # (Auto) 0.5 10^3/uL (0.8-4.8) L 08/09/24 03:42 [place] # (Auto) 0.3 10^3/uL (0.2-0.9) 08/09/24 03:42 Eos # (Auto) 0.0 10^3/uL (0.0-0.8) 08/09/24 03:42 Baso # (Auto) 0.0 10^3/uL (0.0-0.1) 08/09/24 03:42 Nucleated RBC % (auto) 0 % 08/09/24 03:42 Nucleated RBCs # 0.0 /100WBC 08/09/24 03:42 D-Dimer 0.55 ug/mLFEU (0-0.59) 08/07/24 13:55 Specimen Type Venous 08/07/24 16:23 Sample Site Not specified 08/07/24 14:12 [place] Test N/a 08/07/24 16:23 VBG pH 7.39 (7.32-7.42) 08/07/24 16:23 VBG pCO2 58.0 mmHg (41-51) H 08/07/24 16:23 VBG pO2 31.8 mmHg (25-40) 08/07/24 16:23 VBG HCO3 34.9 mmol/L (24-28) H 08/07/24 16:23 VBG Base Excess 8.4 mmol/L (-3.0-3.0) H 08/07/24 16:23 VBG Hematocrit 31.7 % (37-47) L 08/07/24 16:23 O2 Delivery Device Bipap 08/07/24 16:23 FiO2 30.0 % 08/07/24 16:23 Professional Skateboarder ID Cak 08/07/24 16:23 Sodium 135 mmol/L (136-145) L 08/09/24 03:42 Potassium 3.7 mmol/L (3.5-5.1) 08/09/24 03:42 Chloride 91 mmol/L (98-107) L 08/09/24 03:42 Carbon Dioxide 33 mmol/L (22-29) H 08/09/24 03:42 Anion Gap 14.7 (5-19) 08/09/24 03:42 BUN 13 mg/dL (8-23) 08/09/24 03:42 Creatinine 0.6 mg/dL (0.5-0.9) 08/09/24 03:42 GFR Calculation 100.0 mL/min (90-130) 08/09/24 03:42 Glucose 323 mg/dL (65-115) H 08/09/24 03:42 Estimat Average Glucose 126 08/07/24 13:55 Hemoglobin A1c 6.0 % (4.0-6.0) 08/07/24 13:55 Calculated Osmolality 293 mOsm/kg (285-295) 08/09/24 03:42 Lactic Acid 1.5 mmol/L (0.5-2.2) 08/07/24 13:55 Calcium 9.4 mg/dL (8.5-10.5) 08/09/24 03:42 Phosphorus 1.9 mg/dL (2.5-4.5) L 08/09/24 03:42 Magnesium 2.2 mg/dL (1.7-2.3) 08/09/24 03:42 Iron 9 ug/dL (37-145) L 08/07/24 16:00 TIBC 320 mcg/dl 08/07/24 16:00 % Saturation 2.8 % (20-50) L 08/07/24 16:00 Unsat Iron Binding 311 ug/dL (112-347) 08/07/24 16:00 Total Bilirubin 0.2 mg/dL (0.15-1.2) 08/09/24 03:42 AST 7 U/L (0-32) 08/09/24 03:42 ALT 6 U/L (0-33) 08/09/24 03:42 Alkaline Phosphatase 111 U/L (35-105) H 08/09/24 03:42 Troponin T Baseline 7 ng/L (0-10) 08/07/24 13:55 Troponin T 120 Minute 6.00 ng/L (0-10) 08/07/24 16:00 Delta Troponin T -1.00 ABS# (0-10) L 08/07/24 16:00 Troponin T Hi Sens 6Hr 7.65 ng/L (0-10) 08/07/24 20:08 Troponin T Hi Sens 6Hr Delta 0.65 ng/L (0-12) 08/07/24 20:08 NT-Pro-B Natriuret Pep 96 pg/mL (0-125) 08/07/24 13:55 Total Protein 7.3 g/dL (6.6-8.7) 08/09/24 03:42 Albumin 3.7 g/dL (3.5-5.2) 08/09/24 03:42 Globulin 3.6 g/dL (1.3-4.6) 08/09/24 03:42 Triglycerides 94 mg/dL (0-150) 08/08/24 01:52 Triglycerides Cancelled 08/08/24 01:52 Cholesterol 146 mg/dL (0-200) 08/08/24 01:52 Cholesterol Cancelled 08/08/24 01:52 LDL Cholesterol, Calc 78 mg/dL (50-129) 08/08/24 01:52 LDL Cholesterol, Calc Cancelled 08/08/24 01:52 HDL Cholesterol 49 mg/dL (60-100) L 08/08/24 01:52 HDL Cholesterol Cancelled 08/08/24 01:52 LDL/HDL Ratio 1.59 RATIO (0.00-3.22) 08/08/24 01:52 LDL/HDL Ratio Cancelled 08/08/24 01:52 Cholesterol/HDL Ratio 2.98 mg/dL (0.0-4.40) 08/08/24 01:52 Cholesterol/HDL Ratio Cancelled 08/08/24 01:52 Vitamin B12 483 pg/mL (232-1245) 08/07/24 16:00 Folate 16.2 ng/mL (4.8-37.3) 08/08/24 01:52 Procalcitonin 0.10 ng/mL (0-0.5) 08/08/24 01:52 Procalcitonin Cancelled 08/08/24 01:52 TSH 0.47 uIU/mL (0.27-4.20) 08/07/24 16:00 Urine Color Yellow (Yellow) 08/07/24 19:45 Urine Appearance Clear (CLEAR) 08/07/24 19:45 Urine pH 5.0 (5-7) 08/07/24 19:45 Ur Specific [place] 1.006 (1.005-1.030) 08/07/24 19:45 Urine Protein Negative (Negative) 08/07/24 19:45 Urine Glucose (UA) Negative (Normal) 08/07/24 19:45 Urine Ketones Negative (Negative) 08/07/24 19:45 Urine Blood Negative (Negative) 08/07/24 19:45 Urine Nitrate Negative (Negative) 08/07/24 19:45 Urine Bilirubin Negative (Negative) 08/07/24 19:45 Urine Urobilinogen 0.2 mg/dL (Negative) 08/07/24 19:45 Ur Leukocyte Esterase Negative (Negative) 08/07/24 19:45 Urine RBC 0-2 /hpf (0-2) 08/07/24 19:45 Urine WBC 0-5 /hpf (0-5) 08/07/24 19:45 Ur Squamous Epith Cells 0-5 /hpf (0-5) 08/07/24 19:45 Amorphous Sediment Not Reportable 08/07/24 19:45 Urine Bacteria None seen /hpf (NONE) 08/07/24 19:45 Hyaline Casts 0.81 /lpf 08/07/24 19:45 Nasal MRSA (PCR) Not detected (Not Detecte) 08/07/24 19:45 Adenovirus (PCR) Not detected (NOT DETECT) 08/07/24 17:18 C. pneumoniae DNA (PCR) Not detected (NOT DETECT) 08/07/24 17:18 Coronavirus 229E (PCR) Not detected (NOT DETECT) 08/07/24 17:18 Human Metapneumovir PCR Not detected (NOT DETECT) 08/07/24 17:18 Influenza A (H1) PCR Not detected (NOT DETECT) 08/07/24 17:18 Influ A (H1/09) PCR Not detected (NOT DETECT) 08/07/24 17:18 Influenza A (H3) PCR Detected (NOT DETECT) A 08/07/24 17:18 Influenza Type A (PCR) Not detected (NOT DETECT) 08/07/24 17:18 Influenza Type B (PCR) Not detected (NOT DETECT) 08/07/24 17:18 M. pneumoniae (PCR) Not detected (NOT DETECT) 08/07/24 17:18 Parainfluenza 1 (PCR) Not detected (NOT DETECT) 08/07/24 17:18 Parainfluenza 2 (PCR) Not detected (NOT DETECT) 08/07/24 17:18 Parainfluenza 3 (PCR) Not detected (NOT DETECT) 08/07/24 17:18 Parainfluenza 4 (PCR) Not detected (NOT DETECT) 08/07/24 17:18 RSV Type A (PCR) Not detected (NOT DETECT) 08/07/24 17:18 RSV Type B (PCR) Not detected (NOT DETECT) 08/07/24 17:18 Entero/Rhino (PCR) Not detected (NOT DETECT) 08/07/24 17:18 SARS-CoV-2 (PCR) Not detected (NOT DETECT) 08/07/24 17:18 Vitals Last Vital Signs Temp 98.1 F 08/09/24 11:49 Pulse 92 08/09/24 11:49 Resp 14 08/09/24 11:49 BP 122/68 08/09/24 11:49 Pulse Ox 95 08/09/24 11:49 O2 Del Method Nasal Cannula 08/09/24 11:49 O2 Flow Rate 2 08/09/24 08:00 FiO2 30 08/07/24 22:36 Discharge Plan Discharge Patient Disposition: Home Health Service Condition: Stable Prescriptions: New oseltamivir 75 mg Capsule 75 mg PO BID 5 Days Qty: 10 0RF buspirone 10 mg Tablet 10 mg PO BID Qty: 60 0RF amoxicillin-pot clavulanate 875-125 mg tablet 1 tab PO BID 7 Days Qty: 14 0RF levofloxacin 750 mg tablet 750 mg PO Q24H 7 Days Qty: 7 0RF prednisone 10 mg tablet See Taper PO DIRECTED Qty: 42 0RF Taper: predniSONE 60-10 60 mg Daily for 2 Days and 0 Hour 50 mg Daily for 2 Days and 0 Hour 40 mg Daily for 2 Days and 0 Hour 30 mg Daily for 2 Days and 0 Hour 20 mg Daily for 2 Days and 0 Hour 10 mg Daily for 2 Days and 0 Hour Rx Instructions: see taper instructions furosemide 20 mg Tablet 20 mg PO DAILY@0800 Qty: 30 0RF diltiazem HCl [Cardizem CD] 120 mg capsule,extended release 24hr 120 mg PO Q24H Qty: 30 0RF Continued aspirin [Adult Aspirin Regimen] 81 mg tablet,delayed release (DR/EC) 81 mg PO DAILY Hold Instructions: Resume on 07/06/24. Yupelri 175 mcg/3 mL solution for nebulization 175 mcg inhalation BEDTIME budesonide 0.5 mg/2 mL suspension for nebulization 0.5 mg inhalation BID Qty: 60 5RF albuterol sulfate 90 mcg/actuation HFA aerosol inhaler 2 puff inhalation Q6H PRN (Reason: shortness of breath or wheezing) Qty: 8.5 11RF clopidogrel [Plavix] 75 mg tablet 75 mg PO DAILY Qty: 90 3RF Hold Instructions: Resume on 07/06/24. lorazepam 0.5 mg tablet 0.5 mg PO DAILY PRN (Reason: anxiety attacks) Qty: 15 5RF ascorbic acid (vitamin C) [Vitamin C] 500 mg Tablet 500 mg PO BID ferrous sulfate [iron] 325 mg (65 mg iron) Tablet 325 mg PO BID hydrocodone-acetaminophen 5-325 mg tablet 1 - 2 tab PO .Q4-6H PRN (Reason: Pain) gabapentin 100 mg capsule 100 mg PO TID PRN (Reason: nerve pain) Changed ipratropium-albuterol 0.5 mg-3 mg(2.5 mg base)/3 mL solution for nebulization 3 ml INHALATION Q8H Qty: 180 0RF Discontinued buspirone 10 mg tablet 10 mg PO TID PRN (Reason: Panic attack) Qty: 90 0RF metoprolol tartrate [Lopressor] 50 mg tablet 50 mg PO BID Qty: 180 3RF Discharge Orders: Discharge Order (Routine); Ordered 08/09/24 Ordered By: Dannie York Referrals: [facility] ([facility]) [Outside] Nikko Berry DO [Primary Care Provider] - 7-10 days (We have notified your physician's clinic of the need for a follow-up appointment to be scheduled. If you have not heard from them within the next 2 business days, please call them directly. ) Discharge Diet: Cardiac and Diabetic Discharge Activity: Resume usual activity and Increase activity as tolerated Patient Instructions: Opioid Safety Activity Restrictions/Additional Instructions: Restrict fluid intake to less than 1500 cc, salt intake to less than 2 g daily. Advised to check his weight daily at home. Is advised that weight today would be the dry weight and if body weight increases by around 5 pounds, patient is to take an extra dose of Lasix daily till body weight comes down to weight today. If not able to come down to dry body weight in 1 week, then is to call cardiology office for further recommendations. Patient was counseled in detail to take medications regularly as prescribed.. Please take steroid taper as described. Do not take metoprolol anymore. Instead take Cardizem 120 mg oral daily. Take Tamiflu for next 5 days twice daily. Take antibiotic Augmentin and Levaquin for next 5 days. Discharge Attestations Time Spent in Discharge Care*: greater than 30 min Specific Discharge Activities: educating patient, discussing with pcp/other providers, discussing with continuous pillowcase cutter/social workers/dc planners, documenting/other paperwork and evaluating patient/reviewing data Status at Discharge: Cognitive status at discharge: cognitively intact, Behavioral status at discharge: cooperative, Functional status at discharge: independent ambulation, Overall status at discharge: patient is back to baseline Quality Metrics Clinical Quality Measures [ No reported AMI, CVA or VTE this stay] Coding Level of Care Code 98851 Total time (in minutes) for Discharge: 60 Diagnoses Acute on chronic hypoxic respiratory failure J96.21 Failure of outpatient treatment Z78.9 Chronic respiratory failure with hypoxia, on home oxygen therapy J96.11; Z99.81 Coronary artery disease involving [place] coronary artery of [place] heart without angina pectoris I25.10 Associated angina: without angina Coronary Disease-Associated Artery/Lesion type: [place] artery [place] vs. transplanted heart: [place] heart Essential hypertension I10 Generalized anxiety disorder F41.1 SUDARSHAN (obstructive sleep apnea) G47.33 Influenza A J10.1
--- NOTE | 2024-08-09 13:36 | PC.SOCIAL ---
IMM Updated Updated pt on IMM. No questions voiced. Provided pt a copy. Initialed, dated, & timed a copy & placed in chart.
== END 2024-08-09 14:30 | disposition home health service (06) | DRG 193 ==
LOC: ER 16:47 → CSU 17:10 → MEDSURG 08-08 22:30
PROVIDERS: Family Medicine; Admitting Provider Student in an Organized Health Care Education/Training Program; PCP Family Medicine; Visit Provider Student in an Organized Health Care Education/Training Program
DX: J10.1 Influenza due to other identified influenza virus with other respiratory manifestations (principal); J96.21 Acute and chronic respiratory failure with hypoxia; I50.30 Unspecified diastolic (congestive) heart failure; J44.1 Chronic obstructive pulmonary disease with (acute) exacerbation; I25.10 Atherosclerotic heart disease of native coronary artery without angina pectoris; I11.0 Hypertensive heart disease with heart failure; F41.1 Generalized anxiety disorder; G47.33 Obstructive sleep apnea (adult) (pediatric); J43.9 Emphysema, unspecified; I27.20 Pulmonary hypertension, unspecified; R00.0 Tachycardia, unspecified; F32.4 Major depressive disorder, single episode, in partial remission; M81.0 Age-related osteoporosis without current pathological fracture; E11.9 Type 2 diabetes mellitus without complications; Z99.81 Dependence on supplemental oxygen; Z79.82 Long term (current) use of aspirin; Z79.02 Long term (current) use of antithrombotics/antiplatelets; Z79.891 Long term (current) use of opiate analgesic; Z87.891 Personal history of nicotine dependence; Z95.1 Presence of aortocoronary bypass graft; Z95.5 Presence of coronary angioplasty implant and graft
CPT/HCPCS: 36415; 71045; 71250; 80053; 80061; 81001; 82607; 82746; 82803; 83036; 83540; 83550; 83605; 83735; 83880; 84100; 84145; 84443; 84484; 85025; 85378; 87486; 87581; 87633; 93005; 93306; 94640; 94660; 94664; 96365; 96367; 96372; 96375; 96376; 99291; A9270; J0696; J1644; J1940; J1956; J2470; J2919; J3490; J7614; J7626; J7644; Q0144

== ENCOUNTER 2024-08-16 15:49 | Outpatient (CLI) | payer MEDICARE, OTHER, SELFPAY ==
[2024-08-16 16:20] LABS: Hematocrit 30.4 % (36-47)
== END 2024-08-16 15:50 | disposition home or self-care (01) ==
LOC: LAB 15:50
PROVIDERS: PCP Family Medicine; Visit Provider Family Medicine
DX: D64.9 Anemia, unspecified (principal)
CPT/HCPCS: 36415; 85014; 85018

== ENCOUNTER 2024-09-07 14:00 | Oncology outpatient (recurring) (ONCR) | payer MEDICARE, OTHER, SELFPAY ==
[2024-08-24 14:44] VITALS: BP 119/68; PULSE 124; TEMP 36.8; O2SAT 100
[2024-08-24] MEDS: iron sucrose 200 MG in sodium chloride 0.9% 50 ML 240 MG IV (14:57)
[2024-08-24] MEDS: sodium chloride 0.9% 250 ML 400 ML IV (14:57)
== END 2024-09-10 23:59 | disposition home or self-care (01) ==
PROVIDERS: PCP Family Medicine; Visit Provider Family Medicine
DX: Z53.9 Procedure and treatment not carried out, unspecified reason (principal)
CPT/HCPCS: 96365; J1756; J7050

== ENCOUNTER → 2024-12-21 11:56 | Outpatient (BNVA) | payer MEDICARE, OTHER, SELFPAY | PROVIDERS: PCP Family Medicine; Visit Provider Family Medicine | DX: R79.89 Other specified abnormal findings of blood chemistry (principal); D64.9 Anemia, unspecified; J43.1 Panlobular emphysema; E83.42 Hypomagnesemia | CPT/HCPCS: 80048; 82607; 82728; 82746; 83540; 83735; 85025 ==

== ENCOUNTER → 2025-01-12 13:12 | Outpatient (BNVA) | payer MEDICARE, OTHER, SELFPAY | PROVIDERS: PCP Family Medicine; Visit Provider Podiatrist Foot & Ankle Surgery | DX: M79.672 Pain in left foot (principal); M79.671 Pain in right foot; M20.12 Hallux valgus (acquired), left foot; M77.42 Metatarsalgia, left foot; M84.375A Stress fracture, left foot, initial encounter for fracture; S90.31XA Contusion of right foot, initial encounter; X58.XXXA Exposure to other specified factors, initial encounter | CPT/HCPCS: 73630 ==

== ENCOUNTER 2025-01-12 14:41 | Outpatient (CLI) | payer MEDICARE, OTHER, SELFPAY | END 2025-01-12 14:42 | disposition home or self-care (01) | LOC: SPT 14:41 | PROVIDERS: PCP Family Medicine; Visit Provider Podiatrist Foot & Ankle Surgery | DX: Z46.89 Encounter for fitting and adjustment of other specified devices (principal); M79.672 Pain in left foot | CPT/HCPCS: 97760; 99214; L4361 ==

== ENCOUNTER → 2025-01-26 14:34 | Outpatient (BNVA) | payer MEDICARE, OTHER, SELFPAY | PROVIDERS: PCP Family Medicine; Visit Provider Podiatrist Foot & Ankle Surgery | DX: M20.12 Hallux valgus (acquired), left foot (principal); M77.42 Metatarsalgia, left foot; M84.375A Stress fracture, left foot, initial encounter for fracture; S90.31XA Contusion of right foot, initial encounter; X58.XXXA Exposure to other specified factors, initial encounter | CPT/HCPCS: 99213 ==

== ENCOUNTER 2025-04-01 08:38 | Emergency (ER) | payer MEDICARE, OTHER, SELFPAY ==
[2025-04-01 08:54] VITALS: BP 116/70; PULSE 125; RESP 20; TEMP 36.8; O2SAT 93; BMI 20.3
--- NOTE | 2025-04-01 09:08 | ED_ITS ---
HPI - Back Pain/Injury General: Chief Complaint: Back Pain/Injury Stated Complaint: Back and Hip Pain Time Seen by Provider: 04/01/25 08:57 Source: patient and family Mode of arrival: wheelchair Limitations: no limitations History of Present Illness: Patient is a 65-year-old female presents to ED today for evaluation of left- sided back pain. She states approximately 5 days ago she picked up one of her grand kids and immediately felt something pull/pop in her back. She states she has had pain since. She reports pain to the left side of her back that radiates down into her buttock and all the way down my leg . She is not complaining of saddle anesthesia. She is not having any issues with bowel/bladder retention/incontinence. She has been ambulatory in her home but states it is difficult due to the discomfort. She does see Dr. Balbuena for her back and went ahead and made an appointment for him scheduled for Friday. MD elicited complaint: back pain Onset (ago): day(s) Timing: constant Severity: severe Pain scale (0-10): 9 Location: left lower back Radiation: buttocks and left leg below the knee Exacerbating factors: movement and walking Relieving factors: none Context: while lifting Associated symptoms: Reports difficulty walking (due to pain in back); Deny abdominal pain, chills, dysuria, fatigue, fever(s) or hematuria Work related injury: No Related Data Home Medications ?Medication ?Instructions ?Recorded ?Confirmed aspirin 81 mg tablet,delayed 81 mg PO DAILY 03/05/22 0 01/26/25 release (Adult Aspirin Regimen) revefenacin 175 mcg/3 mL solution 175 mcg inhalation B EDTIME 04/25/22 01/26/25 for nebulization (Yupelupei) ascorbic acid (vitamin C) 500 mg 500 mg PO BID 5 01/26/25 tablet (Vitamin C) ferrous sulfate 325 mg (65 mg 325 mg PO BID 07/30/24 0 01/26/25 iron) tablet (iron) gabapentin 100 mg capsule 100 mg PO TID PRN nerve pain 08/07/24 01/26/25 Previous Rx's ?Medication ?Instructions ?Recorded albuterol sulfate 2.5 mg/3 mL 2.5 mg (3 mL) inhalation Q6H #180 10/15/24 (0.083 %) solution for nebulization mL doxycycline hyclate 100 mg tablet 100 mg PO BID 10 day s #20 tabs 12/21/24 albuterol sulfate 90 mcg/actuation 2 puff inhalation Q 6H PRN 01/05/25 aerosol inhaler shortness of breath or wheez ing #8.5 grams budesonide 0.5 mg/2 mL suspension 0.5 mg (2 mL) inhala tion BID #60 mL 01/05/25 for nebulization buspirone 10 mg tablet See Rx Instructions .Route 0 01/05/25 .COMPLEX #60 tabs clopidogrel 75 mg tablet (Plavix) 75 mg PO DAILY #90 t abs 01/05/25 diltiazem HCl 120 mg See Rx Instructions .Route 0 01/05/25 capsule,extended release 24 hr .COMPLEX #30 caps furosemide 20 mg tablet See Rx Instructions .Route 0 01/05/25 .COMPLEX #30 tabs ipratropium 0.5 mg-albuterol 3 mg See Rx Instructions .Route 01/05/25 (2.5 mg base)/3 mL nebulization .COMPLEX #180 mL soln ipratropium bromide 0.02 % 2.5 ml inhalation Q6H PRN 0 01/05/25 solution for inhalation shortness of breath or wheez ing #150 mL Wheel Chair #1 ea 01/12/25 left cam boot #1 ea 01/12/25 wheelchair #1 ea 01/13/25 lorazepam 0.5 mg tablet 0.5 mg PO DAILY PRN anxiety 02/28/25 attacks #15 tabs cyclobenzaprine 10 mg tablet 10 mg PO TID #14 tabs hydrocodone 5 mg-acetaminophen 325 1 tab PO Q6H PRN pa in #14 tabs 04/01/25 mg tablet ibuprofen 600 mg tablet 600 mg PO Q8H PRN pain #14 t abs 04/01/25 prednisone 10 mg tablet 10 mg PO DAILY 6 days #20 ta bs 04/01/25 Allergies Allergy/AdvReac Type Severity Reaction Status Date / Time metronidazole (From Flagyl) Allergy ALGY-Hives Verified 01/26/25 14:46 Review of Systems Const: Denies: fever(s), chills, body aches, fatigue or malaise Card: Denies: chest pain Resp: Reports: dyspnea (chronic-on oxygen-at baseline) GI: Denies: abdominal pain : Denies: flank pain, dysuria or hematuria Musc: Reports: back pain; Denies: neck pain, extremity pain, extremity swelling, joint pain, joint swelling or joint redness Skin/Breast: Denies: rash Neuro: Reports: difficulty walking (due to pain in back); Denies: headache(s), numbness in extremities, weakness in extremities, sensory changes or dizziness PFSH ED PFSH: Medical History Traumatic compression fracture of tenth thoracic vertebra Traumatic compression fracture of eleventh thoracic vertebra SUDARSHAN (obstructive sleep apnea) Tooth abscess Generalized anxiety disorder Essential hypertension Major depression in partial remission Chronic respiratory failure with hypoxia, on home oxygen therapy Chronic stable angina Traumatic compression fracture of L1 lumbar vertebra COPD (chronic obstructive pulmonary disease) Osteoporosis Surgical History Status post double vessel coronary artery bypass H/O heart artery stent H/O kyphoplasty Social History Smoking and tobacco/nicotine status: former use of tobacco/nicotine Quit status (tobacco/nicotine): has quit using Year quit tobacco: Apr 2022 Former quit date comment: 1ppd x 30years Second hand smoke exposure: Yes Alcohol intake: never Substance/Drug Use: never Adopted: No Caregiver/support person: Yes Lives independently: No Household members: spouse Housing: House Marital status: Number of children: 4 Number of grandchildren: 12 Highest education level completed: 10th Grade service: No Current occupational status: retired and disabled Current occupational exposures/hazards: No Pets and animals: No Sexually active: Yes Do you think of yourself as: Straight/Heterosexual Current gender identity: Female Special annika needs: No Agree to transfusion: Yes Female Reproductive History: Spontaneous abortions: No Physical Exam Const: COMMON NORMALS: average body habitus, patient oriented x3, no limitations, healthy appearing, alert and well nourished GENERAL APPEARANCE: cooperative Neck/C-Spine: COMMON NORMALS: full ROM, no lymphadenopathy and no meningeal signs Chest: COMMONS NORMALS: normal inspection of the chest and normal palpation of entire chest wall Resp: COMMON NORMALS: normal respiratory effort and clear to auscultation bilaterally AUSCULTATION: clear to auscultation bilaterally OTHER: chronically on 2-3L O2 Cardio: COMMON NORMALS: regular rhythm RATE: tachycardic RHYTHM: regular rhythm GI: COMMON NORMALS: Normal to inspection, nondistended, normoactive bowel sounds present, Soft to palpation, non-tender and no masses PALPATION: Yes Soft to palpation : COMMON NORMALS: Yes no CVA tenderness BLADDER/KIDNEY EXAM: Yes no CVA tenderness Back/Pelvis: COMMON NORMALS: no CVA tenderness, thoracic and lumbar spine normal to inspection and straight leg raise negative bilaterally LUMBAR SPINE/LOWER BACK: Yes straight leg raise negative bilaterally PELVIS: Yes sciatic notch tenderness on the left SACRUM: no tenderness COCCYX: no tenderness Extremity: COMMON NORMALS: normal to inspection, full ROM, capillary refill normal, no joint enlargement, no clubbing, cyanosis or edema, no calf tenderness and no pedal edema GENERAL: Yes normal exam except as noted Neuro: COMMON NORMALS: patient oriented x3, moves all extremities, no focal motor deficits and no sensory deficits noted SENSORIUM/ORIENTATION: Yes alert MENINGEAL SIGNS: Yes no meningeal signs Skin: COMMON NORMALS: no rashes or lesions noted GENERAL SKIN EXAM: no rashes or lesions noted Course Vital Signs: Vital signs: Vital Signs Temperature 98.2 F 04/01/25 08:54 Pulse Rate 125 H 04/01/25 08:54 Respiratory Rate 17 04/01/25 09:25 Blood Pressure 116/70 04/01/25 08:54 Pulse Oximetry 95 04/01/25 09:25 Oxygen Delivery Me thod Nasal Cannula 04/01/25 08:54 Oxygen Flow Rate 2.5 04/01/25 08:54 MDM - Back Pain/Injury Medical Decision Making Patient feeling better after medications given here. I will place her on steroids, pain medications/anti-inflammatories, steroids and will have her follow-up with Dr. Balbuena on Friday as scheduled. Differential Diagnosis Likely lumbar radiculopathy, sciatica and strain of lumbar region Medical Records I reviewed the patient's medical records. No radiology studies performed this visit Discharge Plan Discharge Patient Disposition: Home Clinical Impression: Acute left-sided back pain with sciatica Condition: Stable Prescriptions: New hydrocodone-acetaminophen 5-325 mg tablet 1 tab PO Q6H PRN (Reason: pain) Qty: 14 0RF ibuprofen 600 mg tablet 600 mg PO Q8H PRN (Reason: pain) Qty: 14 0RF prednisone 10 mg tablet 10 mg PO DAILY 6 Days Qty: 20 0RF Rx Instructions: Take 5 tabs on day 1-2, 4 tabs on day 3, 3 tabs on day 4, 2 tabs on day 5, and 1 tab on day 6 cyclobenzaprine 10 mg tablet 10 mg PO TID Qty: 14 0RF Discontinued prednisone 20 mg tablet See Rx Instructions .Route .COMPLEX Qty: 11 0RF Rx Instructions: Take 2 tabs PO x 5 days, then 1 tab PO x 3 days, then 1/2 tab x 3 days. prednisone 5 mg tablet 5 mg PO DAILY Qty: 90 2RF Rx Instructions: Start 5mg daily after completing the taper. prednisone 10 mg tablet See Taper PO DIRECTED Qty: 42 0RF Taper: predniSONE 60-10 60 mg Daily for 2 Days and 0 Hour 50 mg Daily for 2 Days and 0 Hour 40 mg Daily for 2 Days and 0 Hour 30 mg Daily for 2 Days and 0 Hour 20 mg Daily for 2 Days and 0 Hour 10 mg Daily for 2 Days and 0 Hour Rx Instructions: see taper instructions hydrocodone-acetaminophen 5-325 mg tablet 1 - 2 tab PO .Q4-6H PRN (Reason: Pain) No Action aspirin [Adult Aspirin Regimen] 81 mg tablet,delayed release (DR/EC) 81 mg PO DAILY Yupelri 175 mcg/3 mL solution for nebulization 175 mcg inhalation BEDTIME doxycycline hyclate 100 mg tablet 100 mg PO BID 10 Days Qty: 20 0RF (DME) left cam boot See Rx Instructions .Route .MEDSUPPLY Qty: 1 0RF Rx Instructions: As directed albuterol sulfate 2.5 mg /3 mL (0.083 %) solution for nebulization 2.5 mg inhalation Q6H Qty: 180 1RF albuterol sulfate 90 mcg/actuation HFA aerosol inhaler 2 puff inhalation Q6H PRN (Reason: shortness of breath or wheezing) Qty: 8.5 11RF budesonide 0.5 mg/2 mL suspension for nebulization 0.5 mg inhalation BID Qty: 60 5RF buspirone 10 mg tablet See Rx Instructions .ROUTE .COMPLEX Qty: 60 0RF Dose Instruction: Take 1 tablet by mouth twice daily Rx Instructions: Take 1 tablet by mouth twice daily clopidogrel [Plavix] 75 mg tablet 75 mg PO DAILY Qty: 90 3RF diltiazem HCl 120 mg capsule,extended release 24hr See Rx Instructions .ROUTE .COMPLEX Qty: 30 0RF Dose Instruction: TAKE 1 CAPSULE BY MOUTH EVERY 24 HOURS Rx Instructions: TAKE 1 CAPSULE BY MOUTH EVERY 24 HOURS furosemide 20 mg tablet See Rx Instructions .ROUTE .COMPLEX Qty: 30 0RF Dose Instruction: TAKE 1 TABLET BY MOUTH ONCE DAILY AT 8AM Rx Instructions: TAKE 1 TABLET BY MOUTH ONCE DAILY AT 8AM ipratropium bromide 0.02 % solution 2.5 ml inhalation Q6H PRN (Reason: shortness of breath or wheezing) Qty: 150 2RF ipratropium-albuterol 0.5 mg-3 mg(2.5 mg base)/3 mL solution for nebulization See Rx Instructions .ROUTE .COMPLEX Qty: 180 0RF Dose Instruction: USE 3 ML IN NEBULIZER EVERY 8 HOURS FOR SHORTNESS OF BREATH FOR WHEEZING Rx Instructions: USE 3 ML IN NEBULIZER EVERY 8 HOURS FOR SHORTNESS OF BREATH FOR WHEEZING (DME) Wheel Chair See Rx Instructions .Route .MEDSUPPLY Qty: 1 0RF Rx Instructions: As directed by Shanti- Length of need 99 days (DME) wheelchair See Rx Instructions .Route .MEDSUPPLY Qty: 1 0RF Rx Instructions: As directed to HOME length of need: 90 days lorazepam 0.5 mg tablet 0.5 mg PO DAILY PRN (Reason: anxiety attacks) Qty: 15 5RF ascorbic acid (vitamin C) [Vitamin C] 500 mg Tablet 500 mg PO BID ferrous sulfate [iron] 325 mg (65 mg iron) Tablet 325 mg PO BID gabapentin 100 mg capsule 100 mg PO TID PRN (Reason: nerve pain) Discharge Orders: Discharge ED (Routine); Ordered 04/01/25 Ordered By: Sherice Miller Referrals: Nikko Berry DO [Primary Care Provider, Family Practice] Patient Instructions: Opioid Safety, Pain Management, Patient Portal & Mikayla Instructions Activity Restrictions/Additional Instructions: You may continue ice and heat as needed for your back in addition to the prescription medications provided to you. Please follow-up with Dr. Balbuena on Friday as scheduled. Print Language: Belarusian Coding Level of Care Code ED Customer Service Technician for Wing Bergeron
[2025-04-01 09:25] VITALS: RESP 17; O2SAT 95
[2025-04-01] MEDS: morphine 4 mg/mL SDV 1 mL 2 MG IVP (09:25)
[2025-04-01] MEDS: orphenadrine 30 mg/mL Inj 2 mL IVP (09:25)
== END 2025-04-01 10:42 | disposition home or self-care (01) ==
PROVIDERS: Emergency Provider Physician Assistant; PCP Family Medicine
DX: M54.9 Dorsalgia, unspecified (principal); Z79.82 Long term (current) use of aspirin; Z79.02 Long term (current) use of antithrombotics/antiplatelets; Z87.891 Personal history of nicotine dependence; J44.9 Chronic obstructive pulmonary disease, unspecified; I10 Essential (primary) hypertension
CPT/HCPCS: 96374; 96375; 99284; J1100; J1885; J2270; J2360

== ENCOUNTER → 2025-04-05 15:18 | Outpatient (BNVA) | payer MEDICARE, OTHER, SELFPAY | PROVIDERS: PCP Family Medicine; Visit Provider Orthopaedic Surgery | DX: M54.42 Lumbago with sciatica, left side (principal); M79.604 Pain in right leg; M79.605 Pain in left leg | CPT/HCPCS: 72110; 99213 ==

== ENCOUNTER 2025-04-06 14:14 | Outpatient (CLI) | payer MEDICARE, OTHER, SELFPAY ==
--- NOTE | 2025-04-06 14:30 | MR_ITS ---
WS: [id number] MRI LUMBAR SPINE NONCONTRAST HISTORY: lower back pain COMPARISON: 06/30/2024 TECHNIQUE: Sagittal and axial multisequence imaging is submitted. Marked increase in thoracic kyphosis. Numerous osteoporotic compression fractures in the thoracic and lumbar spines. Prior vertebroplasties at L1, T11, T10 and T8. New compression fracture at L2 since 06/30/2014. There is marrow edema within a portion of the L2 vertebral body with concave deformity of the superior endplate. No significant retropulsion. Marrow edema extends minimally into the LEFT pedicle. Slight retrolisthesis superior endplate of L1 is chronic. Otherwise normal lumbar alignment. Disc spaces are slightly narrowed and desiccated. Conus terminates normally at L1-2 disc level. Mild central canal stenosis suspected at T10-11 seen only on the sagittal imaging. Mild central stenosis at T12-L1. L1-L2: Mild disc bulging with mild central and bilateral foraminal stenosis. L2-L3: Mild disc bulging and facet arthritis. L3-L4: Mild annular disc bulging. Shallow RIGHT paracentral disc protrusion contacts the traversing RIGHT L4 nerve root. There is mild encroachment upon the ventral thecal sac with ligamentum flavum and facet arthritis. Mild to moderate bilateral foraminal stenosis. L4-L5: Diffuse disc bulging with a small central disc protrusion. Mild osteophytic ridging and facet arthritis. Central stenosis with mild disc impingement upon the traversing L5 nerve roots. Mild to moderate bilateral foraminal stenosis. L5-S1: Mild disc bulging. Mild bilateral foraminal stenosis. Large hiatal hernia. MR/MR lumbar spine wo con* [id number] IMPRESSION: 1. Acute L2 compression fracture, new since 06/30/2024. There is marrow edema involving a large portion of the superior L2 vertebral body with new concave de formity superior endplate. No retropulsion. 2. Patient has numerous previously described osteoporotic compression fracture s in the thoracic and lumbar spine. 3. Prior vertebroplasties at L1, T11, T10 and T8. 4. RIGHT paracentral disc protrusion at L3-4 with mild encroachment upon the R IGHT L4 nerve root. 5. Mild to moderate bilateral foraminal stenosis at L3-4 and L4-5. 6. Mild central stenosis at L4-5 with impingement upon the traversing L5 nerve roots. 7. Mild bilateral foraminal stenosis at L5-S1. 8. Mild central stenosis at T10-11 and T12-L1.
== END 2025-04-06 14:15 | disposition home or self-care (01) ==
PROVIDERS: PCP Family Medicine; Visit Provider Orthopaedic Surgery
DX: S32.020A Wedge compression fracture of second lumbar vertebra, initial encounter for closed fracture (principal); M51.26 Other intervertebral disc displacement, lumbar region; M79.605 Pain in left leg; X58.XXXA Exposure to other specified factors, initial encounter
CPT/HCPCS: 72148

== ENCOUNTER 2025-04-10 14:55 | Emergency (ER) | payer MEDICARE, OTHER, SELFPAY ==
[2025-04-10 14:59] VITALS: BP 138/79; PULSE 115; TEMP 36.8; O2SAT 95
--- OUTSIDE RECORDS SUMMARY | 2025-04-10 14:59 | XMS_ITS | Patient Health Record ---
Author Organization [facility] Address [address] [place] [address] Care Team Providers Care Sales Driver Name Role Phone Dr Nikko Berry DO Primary Care Provider Unav ailable Garrett Guzman Unavailable [phone] Allergies No Known Allergies Reason For Referral Reason Pulmonary Nodule / C OPD / Chronic Respiratory Failure with Hypoxia, on home oxygen therapy; 08/10: Not urgent per Reji Scheduled 12/30/2024 @ 02:10 PM Diagnosis 1 Panlobular emphysema (J43.1) Diagnosis 2 Chronic respiratory failure with hypoxia (J96.11) Diagnosis 3 Dependence on supple mental oxygen (Z99.81) Diagnosis 4 Solitary pulmonary n odule (R91.1) Referring Provider First Name Nikko Referring Provider Last Name Jamal Referring Provider Speciality Family Med community health Referred Organization [facility] Referred Provider Garrett Guzman Referred Address [address] [place], [place],[address],[place] Referred Provider Specialty Pulmonary Di seases General Notes Amie Sharp 025 01:46:47 PM >08/10: Called [facility], they are faxing us report. Once received, I can request Aron frank Marie 08/10/2024 03:27:09 PM >Report received, need to request Aron frank Marie 08/10/2024 03:33:38 PM >Faxed request for images to Aron pacheco Marie 08/10/2024 03:35:29 PM >08/10: [facility], Amie Sharp 08/10/2024 04:25:56 PM >08/10: Not urgent per Aron Guzman Marie 08/19/2024 01:23:00 PM >Confirmed with Radiology that images were received, Shefali Coley 08/25/2024 10:29:39 AM >Previous smoker; Datar Patient, Shefali Coley 09/06/2024 02:27:04 PM >Imaging in PACs, Shefali Coley 09/16/2024 11:27:11 AM >Scheduled 12/30/2024 @ 02:10 PM, Shefali Coley 09/16/2024 11:27:54 AM >TO HELP EXPIDITE PATIENT'S CARE, DR. GZUMAN IS ASKING THAT YOU SEND A PULMONARY FUNCTION TEST ORDER TO OUR CLINIC OR TO THE HOSPITAL. PATIENT WILL NEED THIS COMPLETED BEFORE THIER APPOINTMENT. THANK YOU Referral Priority Routine Medications Medication SIG (Take, Route, Frequency, Duration) Notes Start Date End Date Status Trang Ellipta 100-62.5-25 MCG/ACT Aerosol Powder Breath Activated 1 puff (rinse mouth after use) Inhalation Once a day; Duration: 90 days 12/30/2024 12/30/2025 Active Plavix 75 MG Tablet 1 tablet Orally Once a day Active predniSONE 20 MG Tablet TAKE 2 TABLETS B Y MOUTH DAILY FOR 5 DAYS, THEN 1 TABLET DAILY FOR 3 DAYS, THEN ONE-HALF TABLET DAILY FOR 3 DAYS Oral; Duration: 11 Days Active Albuterol Sulfate HFA 108 (90 Base) MCG/ACT Aerosol Solution 2 puffs as needed Inhalation every 4-6 hrs (as needed only!); Duration: 27 days Active busPIRone HCl 10 MG Tablet Oral; Duration: 30 Days Acti ve LORazepam 0.5 MG Tablet TAKE 1 TABLET BY MOUTH ONCE DAILY NEEDED FOR ANXIETY ATTACKS Oral; Duration: 15 Days Active dilTIAZem HCl ER Coated Beads 120 MG Capsule Extended Release 24 Hour TAKE 1 CAPSULE BY MOUTH EVERY 24 HOURS Oral; Duration: 30 Days Active Furosemide 20 MG Tablet Oral; Duration: 30 Days Active Social History Tobacco Use: Social History Observation Description Date Details (start date - stop date) Never Smoker NA - NA Social History Drugs/Alcohol: Social Info Question Answer Notes Caffeine Intake: 1-2 cups per day Tobacco Use: Social Info Question Answer Notes Tobacco Control (Standard) Tobacco use: Nonsmoker Additional Details Category Social Info Options Details Drugs/Alcohol: Do you drink alcohol? 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) Active confirmed Problem Panlobular emphysema (5823573) Panlobular emphysema (J43.1) Active confirmed Problem Solitary pulmonary nodule (851006218) Solitary pulmonary nodule (R91.1) Active confirmed Problem Dependence on supplemental oxygen (278414989712) Dependence on supplemental oxygen (Z99.81) Active confirmed Problem Radiology result abnormal (734272900) Abnormal chest CT (R93.89) Active confirmed Problem Chronic respiratory failure (29243786) Chronic hypoxic respiratory failure (J96.11) Active confirmed Vital Signs Heart Rate 91 /min 12/30/2024 Temperature 97.8 degrees Fahrenheit 12/30/2024 Respiratory Rate 18 /min 12/30/2024 Height-cm 160.02 cm 12/30/2024 Oximetry 91 % 12/30/2024 Blood pressure diastolic 67 mm Hg 12/30/2024 Weight-kg 53.8 kg 12/30/2024 Height 63 in 12/30/2024 Blood pressure systolic 129 mm Hg 12/30/2024 Weight 118.61 lbs 12/30/2024 BMI 21.01 kg/m2 12/30/2024 Procedures Procedure Date Ordered Date Performed Result Body Sit e PFT with FRC: (NO TGV) 12/30/2024 N/A Encounters Encounter Location Date Provider Diagnosis [facility] [address] [place] [address] [place] [address] 12/30/2024 Garrett Guzman Shortness of breath R06.02 ; Chronic hypoxic respiratory failure J96.11 and Nicotine dependence, cigarettes, in remission F17.211 [facility] [address] [place] [address] [place] [address] 01/04/2025 Garrett Guzman Shortness of breath R06.02 [facility] [address] [place] [address] 04/07/2025 Garrett Guzman Assessments Encounter Date Diagnosis (ICD Code) Assessment Notes Treatment Notes Treatment Clinical Notes Section Notes 12/30/2024 Shortness of breath (ICD-10 - R06.02) Little to no benefit from Advair. She has had 2 COPD exacerbations in the last year. She might be a candidate for Daliresp Continue Ventolin HFA as needed. Hold DuoNeb. I will start her on Trelegy. Obtain PFT 12/30/2024 Chronic hypoxic respiratory failure (ICD-10 - J96.11) Continue nasal cannula to maintain a saturation above 88%. 01/04/2025 Shortness of breath (ICD-10 - R06.02) 12/30/2024 Nicotine dependence, cigarettes, in remission (ICD-10 - F17.211) Patient smoked a [id number] for 47 years. She has been abstinent since 2021. Obtain chest CT for lung cancer screening on August 07, 2025 12/30/2024 Other I, Lila Camara, am scribing for, and in the presence of Dr. Garrett Guzman. I, Dr. Garrett Guzman, personally performed the services described in this documentation, as scribed by Lila Camara in my presence, and it is both accurate and complete. Plan Of Treatment Pending Test Test Name Order Date PFT with FRC: (NO TGV) 12/30/2024 Next Appt Details Provider Name:Garrett Guzman, 04/26/2025 02:00:00 PM, [address] [place] [address] [address], [place], [address], Provider Name:Garrett Guzman, 04/26/2025 03:00:00 PM, [address] [place] [address] [place], [address], Insurance Providers Payer Name Payer Address Payer Phone Subscriber Number Group Number Insured Name Patient Relationship to Insured Coverage Start Date Coverage End Date [place] [address] [place] [phone] [id number] STAGE, DURGA Self - patient is the insured [facility] [address] [address] [place] [phone] [id number] STAGE, DURGA Self - patient is the insured Medical (General) History Medical History History ICD Code Chicken Pox Pneumonia double heart bypass arthritis cancer anemia bladder infections back trouble bronchitis stroke Surgical History Surgery Date(Month/Year) 4x stents- 2015 double heart bypass- [place] 2005 Hospitalization History Reason Date(Month/Year) see surgical hx
--- NOTE | 2025-04-10 17:02 | ED_ITS ---
HPI - Back Pain/Injury General: Chief Complaint: Back Pain/Injury Stated Complaint: lower back pain Time Seen by Provider: 04/10/25 16:33 Source: patient Mode of arrival: ambulatory Limitations: no limitations History of Present Illness: Patient is a six 5-year-old female who presents to the Emergency Department complaining of continued left lower back pain. She was seen here in the emergency department approximately 10 days ago for the same issue, subsequently referred to Ortho/spine where she received an MRI. This was performed on 04/06 showing acute L2 compression fracture along with multiple old fractures due to her history of osteoporosis. Stating the pain is rating down her left leg, intermittently will be numb and shoot down the right leg as well. Still has control over her bowel and bladder, states sometimes she will have dribbling with urination but this has been going on for a while. Ambulatory though with significant amount of pain, has been taking hydrocodone but states this has not been helping. Chronically on 2 L of oxygen for history of COPD. Denies any recent trauma, states that pain recently started up again after she went to burr picker family member/child. Tachycardic at this time, rest of her vitals stable. MD elicited complaint: back pain Pertinent past history: prior back pain Onset (ago): day(s) Timing: progressively worsening Severity: similar to previous episodes Pain scale (0-10): 10 Similar Symptoms Previously: Yes Location: lumbar spine and left lower back Radiation: left leg below the knee and right leg below the knee Exacerbating factors: movement and walking Context: while lifting Associated symptoms: Deny abdominal pain, difficulty walking, fecal incontinence, fever(s) or syncope Treatments prior to arrival: prescription analgesics Related Data Home Medications ?Medication ?Instructions ?Recorded ?Confirmed aspirin 81 mg tablet,delayed 81 mg PO DAILY 03/05/22 0 04/05/25 release (Adult Aspirin Regimen) revefenacin 175 mcg/3 mL solution 175 mcg inhalation B EDTIME 04/25/22 04/05/25 for nebulization (Yupelri) ascorbic acid (vitamin C) 500 mg 500 mg PO BID 5 04/05/25 tablet (Vitamin C) ferrous sulfate 325 mg (65 mg 325 mg PO BID 07/30/24 0 04/05/25 iron) tablet (iron) gabapentin 100 mg capsule 100 mg PO TID PRN nerve pain 08/07/24 04/05/25 Previous Rx's ?Medication ?Instructions ?Recorded albuterol sulfate 2.5 mg/3 mL 2.5 mg (3 mL) inhalation Q6H #180 10/15/24 (0.083 %) solution for nebulization mL doxycycline hyclate 100 mg tablet 100 mg PO BID 10 day s #20 tabs 12/21/24 albuterol sulfate 90 mcg/actuation 2 puff inhalation Q 6H PRN 01/05/25 aerosol inhaler shortness of breath or wheez ing #8.5 grams budesonide 0.5 mg/2 mL suspension 0.5 mg (2 mL) inhala tion BID #60 mL 01/05/25 for nebulization buspirone 10 mg tablet See Rx Instructions .Route 0 01/05/25 .COMPLEX #60 tabs clopidogrel 75 mg tablet (Plavix) 75 mg PO DAILY #90 t abs 01/05/25 diltiazem HCl 120 mg See Rx Instructions .Route 0 01/05/25 capsule,extended release 24 hr .COMPLEX #30 caps furosemide 20 mg tablet See Rx Instructions .Route 0 01/05/25 .COMPLEX #30 tabs ipratropium 0.5 mg-albuterol 3 mg See Rx Instructions .Route 01/05/25 (2.5 mg base)/3 mL nebulization .COMPLEX #180 mL soln ipratropium bromide 0.02 % 2.5 ml inhalation Q6H PRN 0 01/05/25 solution for inhalation shortness of breath or wheez ing #150 mL Wheel Chair #1 ea 01/12/25 left cam boot #1 ea 01/12/25 wheelchair #1 ea 01/13/25 lorazepam 0.5 mg tablet 0.5 mg PO DAILY PRN anxiety 02/28/25 attacks #15 tabs ibuprofen 600 mg tablet 600 mg PO Q8H PRN pain #14 t abs 04/01/25 cyclobenzaprine 10 mg tablet 10 mg PO TID 7 days #21 t abs 04/05/25 hydrocodone 5 mg-acetaminophen 325 1 tab PO Q6H PRN pa in 7 days #28 04/05/25 mg tablet tabs Allergies Allergy/AdvReac Type Severity Reaction Status Date / Time metronidazole (From Flagyl) Allergy ALGY-Hives Verified 09/28/25 15:03 Review of Systems General: Reports: 10 or more systems reviewed and unremarkable except in HPI and below Const: Reports: other (denies trauma); Denies: fever(s), change in weight or night sweats Card: Denies: chest pain, lightheadedness or syncope Resp: Denies: dyspnea GI: Denies: abdominal pain or fecal incontinence : Denies: urinary incontinence Musc: Reports: back pain and extremity pain; Denies: neck pain Skin/Breast: Denies: rash or skin pain Neuro: Reports: numbness in extremities; Denies: headache(s), weakness in extremities, sensory changes, lack of coordination, difficulty walking, frequent falls or involuntary movements PFSH ED PFSH: Medical History Traumatic compression fracture of tenth thoracic vertebra Traumatic compression fracture of eleventh thoracic vertebra SUDARSHAN (obstructive sleep apnea) Tooth abscess Generalized anxiety disorder Essential hypertension Major depression in partial remission Chronic respiratory failure with hypoxia, on home oxygen therapy Chronic stable angina Traumatic compression fracture of L1 lumbar vertebra COPD (chronic obstructive pulmonary disease) Osteoporosis Surgical History Status post double vessel coronary artery bypass H/O heart artery stent H/O kyphoplasty Social History Smoking and tobacco/nicotine status: former use of tobacco/nicotine Quit status (tobacco/nicotine): has quit using Year quit tobacco: Apr 2022 Former quit date comment: 1ppd x 30years Second hand smoke exposure: Yes Alcohol intake: never Substance/Drug Use: never Adopted: No Caregiver/support person: Yes Lives independently: No Household members: spouse Housing: House Marital status: Number of children: 4 Number of grandchildren: 12 Highest education level completed: 10th Grade service: No Current occupational status: retired and disabled Current occupational exposures/hazards: No Pets and animals: No Sexually active: Yes Do you think of yourself as: Straight/Heterosexual Current gender identity: Female Special annika needs: No Agree to transfusion: Yes Female Reproductive History: Spontaneous abortions: No Physical Exam Const: COMMON NORMALS: patient oriented x3, no limitations and alert ORIENTATION/CONSCIOUSNESS: Yes awake OTHER: Thin, ill-appearing, uncomfortable secondary to pain Resp: COMMON NORMALS: normal respiratory effort, No retractions, No use of accessory muscles and clear to auscultation bilaterally AUSCULTATION: clear to auscultation bilaterally Cardio: COMMON NORMALS: regular rhythm, S1 normal heart sound present and S2 normal heart sound present RATE: tachycardic RHYTHM: regular rhythm HEART SOUNDS: S1 normal heart sound present and S2 normal heart sound present Back/Pelvis: OTHER: Normal visual examination. Tender to lower back, no obvious deformity or bruising. Range of motion limited secondary to pain, straight leg raise positive bilaterally. Extremity: COMMON NORMALS: normal to inspection and full ROM Neuro: COMMON NORMALS: patient oriented x3, moves all extremities, no focal motor deficits, no sensory deficits noted, deep tendon reflexes 2+ bilaterally and gait normal SENSORIUM/ORIENTATION: Yes alert OTHER: L3, L4, L5, and S1 nerve sensations intact. Normal knee jerk and ankle jerk reflexes. Skin: COMMON NORMALS: no rashes or lesions noted GENERAL SKIN EXAM: no rashes or lesions noted Course Vital Signs: Vital signs: Vital Signs Temperature 98.2 F 04/10/25 14:59 Pulse Rate 115 H 04/10/25 14:59 Blood Pressure 138/79 04/10/25 14:59 Pulse Oximetry 95 04/10/25 14:59 Oxygen Delivery Me thod Nasal Cannula 04/10/25 14:59 Oxygen Flow Rate 2 04/10/25 14:59 MDM - Back Pain/Injury Medical Decision Making Patient presenting here for reevaluation of back pain that has been worsening, recently saw Dr. Balbuena and had MRI performed couple days ago that showed an acute L2 compression fracture along with chronic findings, however no signs or symptoms that there was any spinal cord impingement. States that the pain got worse couple days ago after picking up child, she has been taking hydrocodone but has since had difficulty walking secondary to the amount of pain she has been having. On exam there was no signs or symptoms of cauda equina, and there is no repeat trauma. Pain was controlled here with IV Dilaudid, and TLSO brace will be ordered for her. I spoke with Dr. Balbuena, who is agreeing to see the patient in the office as it had been previously discussed that she would have possible kyphoplasty. Patient is much more mobile and is ambulatory out of the emergency department, she is to continue her [place] and general return precautions given. She knows to come back for any worsening. No radiology studies performed this visit Discharge Plan Discharge Patient Disposition: Home Clinical Impression: Compression fx, lumbar spine Qualifiers: Encounter type: subsequent encounter Lumbar vertebra fracture level: L2 Fracture healing: with routine healing Qualified Code(s): S32.020D - Wedge compression fracture of second lumbar vertebra, subsequent encounter for fracture with routine healing Condition: Stable Prescriptions: No Action aspirin [Adult Aspirin Regimen] 81 mg tablet,delayed release (DR/EC) 81 mg PO DAILY Yupelri 175 mcg/3 mL solution for nebulization 175 mcg inhalation BEDTIME doxycycline hyclate 100 mg tablet 100 mg PO BID 10 Days Qty: 20 0RF (DME) left cam boot See Rx Instructions .Route .MEDSUPPLY Qty: 1 0RF Rx Instructions: As directed hydrocodone-acetaminophen 5-325 mg tablet 1 tab PO Q6H PRN (Reason: pain) 7 Days Qty: 28 0RF cyclobenzaprine 10 mg tablet 10 mg PO TID 7 Days Qty: 21 0RF albuterol sulfate 2.5 mg /3 mL (0.083 %) solution for nebulization 2.5 mg inhalation Q6H Qty: 180 1RF albuterol sulfate 90 mcg/actuation HFA aerosol inhaler 2 puff inhalation Q6H PRN (Reason: shortness of breath or wheezing) Qty: 8.5 11RF budesonide 0.5 mg/2 mL suspension for nebulization 0.5 mg inhalation BID Qty: 60 5RF buspirone 10 mg tablet See Rx Instructions .ROUTE .COMPLEX Qty: 60 0RF Dose Instruction: Take 1 tablet by mouth twice daily Rx Instructions: Take 1 tablet by mouth twice daily clopidogrel [Plavix] 75 mg tablet 75 mg PO DAILY Qty: 90 3RF diltiazem HCl 120 mg capsule,extended release 24hr See Rx Instructions .ROUTE .COMPLEX Qty: 30 0RF Dose Instruction: TAKE 1 CAPSULE BY MOUTH EVERY 24 HOURS Rx Instructions: TAKE 1 CAPSULE BY MOUTH EVERY 24 HOURS furosemide 20 mg tablet See Rx Instructions .ROUTE .COMPLEX Qty: 30 0RF Dose Instruction: TAKE 1 TABLET BY MOUTH ONCE DAILY AT 8AM Rx Instructions: TAKE 1 TABLET BY MOUTH ONCE DAILY AT 8AM ipratropium bromide 0.02 % solution 2.5 ml inhalation Q6H PRN (Reason: shortness of breath or wheezing) Qty: 150 2RF ipratropium-albuterol 0.5 mg-3 mg(2.5 mg base)/3 mL solution for nebulization See Rx Instructions .ROUTE .COMPLEX Qty: 180 0RF Dose Instruction: USE 3 ML IN NEBULIZER EVERY 8 HOURS FOR SHORTNESS OF BREATH FOR WHEEZING Rx Instructions: USE 3 ML IN NEBULIZER EVERY 8 HOURS FOR SHORTNESS OF BREATH FOR WHEEZING (DME) Wheel Chair See Rx Instructions .Route .MEDSUPPLY Qty: 1 0RF Rx Instructions: As directed by Shanti- Length of need 99 days (DME) wheelchair See Rx Instructions .Route .MEDSUPPLY Qty: 1 0RF Rx Instructions: As directed to HOME length of need: 90 days lorazepam 0.5 mg tablet 0.5 mg PO DAILY PRN (Reason: anxiety attacks) Qty: 15 5RF ascorbic acid (vitamin C) [Vitamin C] 500 mg Tablet 500 mg PO BID ferrous sulfate [iron] 325 mg (65 mg iron) Tablet 325 mg PO BID gabapentin 100 mg capsule 100 mg PO TID PRN (Reason: nerve pain) ibuprofen 600 mg tablet 600 mg PO Q8H PRN (Reason: pain) Qty: 14 0RF Discharge Orders: Discharge ED (Routine); Ordered 04/10/25 Ordered By: Figueroa Hernandez Other Ambulatory Orders: DME: Miscellaneous (Order) Location: None Selected Ordered By: Figueroa Hernandez Referrals: Nikko Berry DO [Primary Care Provider, [facility]] Patient Instructions: Opioid Safety, Pain Management, Patient Portal & Mikayla Instructions Activity Restrictions/Additional Instructions: Continue taking your prescribed pain medication. Follow-up with Dr. Balbuena this week for reevaluation. Wear the TLSO brace as directed. Please return with any persistent numbness in the groin region, persistent loss of bowel or bladder function, complete inability to ambulate, or any other major concerns. Print Language: Armenian Coding Level of Care Code ED Director Dietetics Department for [facility]
[2025-04-10] MEDS: HYDROmorphone 0.5 MG/0.5 ML INJ 1 MG IVP (17:09)
== END 2025-04-10 18:47 | disposition home or self-care (01) ==
PROVIDERS: Emergency Provider Physician Assistant; PCP Family Medicine
DX: S32.020D Wedge compression fracture of second lumbar vertebra, subsequent encounter for fracture with routine healing (principal); Z79.82 Long term (current) use of aspirin; Z79.02 Long term (current) use of antithrombotics/antiplatelets; X58.XXXD Exposure to other specified factors, subsequent encounter; J44.9 Chronic obstructive pulmonary disease, unspecified; Z99.81 Dependence on supplemental oxygen
CPT/HCPCS: 96374; 96375; 99284; J1171; J1885

== ENCOUNTER → 2025-04-26 14:12 | Outpatient (BNVA) | payer MEDICARE, OTHER, SELFPAY | PROVIDERS: PCP Family Medicine; Visit Provider Orthopaedic Surgery | DX: Z01.818 Encounter for other preprocedural examination (principal); M51.26 Other intervertebral disc displacement, lumbar region; S32.020D Wedge compression fracture of second lumbar vertebra, subsequent encounter for fracture with routine healing; X58.XXXD Exposure to other specified factors, subsequent encounter | CPT/HCPCS: 36415; 80053; 81001; 85025; 87086; 99214 ==

== ENCOUNTER 2025-05-05 14:41 | Day surgery (SDC) | payer MEDICARE, OTHER, SELFPAY | END 2025-05-05 14:45 | disposition home or self-care (01) | LOC: OR 05-30 10:40 | PROVIDERS: PCP Family Medicine; Visit Provider Orthopaedic Surgery | DX: Z53.8 Procedure and treatment not carried out for other reasons (principal) ==

== ENCOUNTER → 2025-05-10 17:18 | Outpatient (BNVA) | payer MEDICARE, OTHER, SELFPAY | PROVIDERS: PCP Family Medicine; Visit Provider Registered Nurse Neonatal Intensive Care | DX: R39.9 Unspecified symptoms and signs involving the genitourinary system (principal) | CPT/HCPCS: 81000 ==

== ENCOUNTER → 2025-05-12 11:31 | Outpatient (BNVA) | payer MEDICARE, OTHER, SELFPAY | PROVIDERS: PCP Family Medicine; Visit Provider Internal Medicine | DX: Z01.818 Encounter for other preprocedural examination (principal); J96.11 Chronic respiratory failure with hypoxia; Z99.81 Dependence on supplemental oxygen; R91.1 Solitary pulmonary nodule; J44.9 Chronic obstructive pulmonary disease, unspecified; G47.33 Obstructive sleep apnea (adult) (pediatric); Z99.89 Dependence on other enabling machines and devices; Z87.891 Personal history of nicotine dependence; M40.209 Unspecified kyphosis, site unspecified | CPT/HCPCS: 99214; Q3014 ==

== ENCOUNTER 2025-06-22 13:55 | Outpatient (CLI) | payer MEDICARE, OTHER, SELFPAY ==
--- NOTE | 2025-06-22 14:15 | CT_ITS ---
WS: [id number] CT chest wo con [id number] REASON FOR EXAM: R91.1 - Solitary pulmonary nodule IV CONTRAST ADMINISTERED: None. TECHNIQUE: Multiple axial images without intravenous contrast enhancement. COMPARISON EXAMINATION: 08/07/2024. TOTAL EXAM DLP: 228.[address] scans at [facility] use at least one of these dose optimization techniques: automated exposure control; mA and/or kV adjustment per patient size (includes targeted exams where dose is matched to clinical indication); or iterative reconstruction. FINDINGS: Central lobar emphysema. Coronary artery bypass surgery. Large hiatal hernia. Multiple thoracic vertebroplasties. Multiple calcified granulomas. Small sub-4 mm nodule in the left lower lung unchanged. Index lesion in the superior segment of the left lower lobe has enlarged and has become more complex and attenuation and shape. Lesion now measures in maximum dimensions 9 x 5 mm. Remainder of the chest is unchanged compared to the previous examination. CT/CT chest wo con [id number] IMPRESSION: Enlargement and shape change of the index lesion in the left lung. While it is possible this represents an evolving inflammatory granulomatous nodule primary concern is neoplasm. PET/CT scan is recommended and the chest is now considered L RADS 4B.
== END 2025-06-22 13:56 | disposition home or self-care (01) ==
LOC: RAD 13:56
PROVIDERS: PCP Family Medicine; Visit Provider Family Medicine
DX: R91.1 Solitary pulmonary nodule (principal); J43.2 Centrilobular emphysema; I25.810 Atherosclerosis of coronary artery bypass graft(s) without angina pectoris; K44.9 Diaphragmatic hernia without obstruction or gangrene; S22.008A Other fracture of unspecified thoracic vertebra, initial encounter for closed fracture; X58.XXXA Exposure to other specified factors, initial encounter; J84.10 Pulmonary fibrosis, unspecified; R91.8 Other nonspecific abnormal finding of lung field; D49.1 Neoplasm of unspecified behavior of respiratory system
CPT/HCPCS: 71250; 99213

== ENCOUNTER 2025-06-30 08:53 | Outpatient (CLI) | payer MEDICARE, OTHER, SELFPAY ==
[2025-06-30 09:16] VITALS: PULSE 105; RESP 20; O2SAT 97
== END 2025-06-30 08:54 | disposition home or self-care (01) ==
LOC: RT 08:55
PROVIDERS: PCP Family Medicine; Visit Provider Internal Medicine
DX: J44.9 Chronic obstructive pulmonary disease, unspecified (principal); J98.8 Other specified respiratory disorders; R94.2 Abnormal results of pulmonary function studies
CPT/HCPCS: 94060; 94726; 94729; J7613